=== PATIENT | female | born 1960 | race Caucasian/White ===

== ENCOUNTER → 2020-10-23 15:14 | Outpatient (CLI) | payer SELFPAY ==
[2020-10-23] MEDS: COVID-19 VACC #1, MRNA(MOD) 100 MCG/0.5 ML VIAL IM (15:22)
== END ==
PROVIDERS: Visit Provider Internal Medicine
DX: Z23 Encounter for immunization (principal)
CPT/HCPCS: 0011A; 91301

== ENCOUNTER → 2020-11-20 15:36 | Outpatient (CLI) | payer SELFPAY ==
[2020-11-20] MEDS: COVID-19 VACC #2, MRNA(MOD) 100 MCG/0.5 ML VIAL IM (15:42)
== END ==
PROVIDERS: Visit Provider Internal Medicine
DX: Z23 Encounter for immunization (principal)
CPT/HCPCS: 0012A; 91301

== ENCOUNTER → 2022-02-09 08:09 | Outpatient (CLI) | payer BC, SELFPAY ==
--- NOTE | 2022-02-09 08:11 | DI.RAD.S_ITS ---
PROCEDURE: XR KNEE RT 3V INDICATIONS: right knee swelling pain since injury 10 weeks ago TECHNIQUE: 3 views of the knee were acquired. COMPARISON: [facility], , KNEE 3V LEFT, 04/24/2015, 14:49. [facility], , KNEE 3V RIGHT, 04/24/2015, 14:40. FINDINGS: Bones: No fractures or dislocations. Small patellar osteophyte. Mild joint space narrowing suspected. No suspicious bony lesions. Soft tissues: Small joint effusion. No suspicious soft tissue calcifications. IMPRESSION: Small joint effusion. Laps-ko-ohshezys DJD. Dictated by: Bryce Julien M.D. on 02/09/2022 at 9:08 Approved by: Bryce Julien M.D. on 02/09/2022 at 9:10
== END ==
PROVIDERS: Referring Provider Nurse Practitioner Critical Care Medicine; Visit Provider Nurse Practitioner Critical Care Medicine
DX: S89.91XA Unspecified injury of right lower leg, initial encounter (principal); M17.11 Unilateral primary osteoarthritis, right knee; M25.461 Effusion, right knee; X58.XXXA Exposure to other specified factors, initial encounter
CPT/HCPCS: 73562

== ENCOUNTER → 2022-04-23 17:15 | Outpatient (CLI) | payer SELFPAY ==
--- NOTE | 2022-04-23 17:24 | DI.MRI.S_ITS ---
PROCEDURE: MR KNEE RT WO CON INDICATIONS: Unilateral primary osteoarthritis, right knee TECHNIQUE: Noncontrast sagittal PD fast spin echo and T2 fast spin echo with fat saturation, sagittal 3-D FLASH with fat saturation; coronal T1 spin echo and PD fast spin echo with fat saturation, and axial PD fast spin echo with fat saturation through the knee. COMPARISON: None. FINDINGS: Image quality: Excellent. Menisci: Subtle oblique tear involving posterior horn of medial meniscus is seen extending to inferior articulating surface best seen on series 13, image 20. Lateral meniscus is intact. The meniscal root ligaments appear intact. Cruciate ligaments: The anterior and posterior cruciate ligaments appear intact. Medial structures: Low-grade medial collateral ligament sprain is seen. The posterior oblique ligament, semimembranosus tendon insertions, oblique popliteal ligament, and meniscocapsular junction appear intact. Visualized portions of the pes anserinus tendons appear normal. No abnormal bursal fluid. Lateral structures: The lateral collateral ligament, long and short heads of the biceps femoris tendon appear intact. The popliteus tendon appears normal; the popliteofibular ligament appears intact. The posterosuperior and anteroinferior popliteomeniscal fascicles appear intact. The arcuate and fabellofibular ligaments appear intact, on either side of the lateral inferior geniculate artery. Iliotibial band appears normal. Anterior structures: Mild soft tissue edema and small amount of fluid along anterior and medial aspect of patella and patella tendon is seen. The quadriceps and patellar tendons appear intact. Thickened lateral patellofemoral ligament is seen near its patellar insertion with adjacent is soft tissue edema. Patellar alignment is normal. No femoral trochlear dysplasia or ventral trochlear prominence. No edema in the infrapatellar fat pad. Bones and cartilage: No bone marrow contusions or fractures. 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 Joint space: There is small knee joint fluid. No Newell's cyst. Normal appearing synovial plicae are incidentally noted. IMPRESSION: 1. Subtle oblique tear involving posterior horn of medial meniscus extending to inferior articulating surface. Lateral meniscus is intact. 2. Low-grade MCL sprain. Anterior and posterior cruciate ligaments are intact. 3. Moderate grade sprain/partial-thickness tear involving lateral patellofemoral ligament near patella insertion. Quadriceps tendon and patellar tendon are intact. 4. Plnx-fu-[id number] tricompartmental osteoarthritis and chondromalacia most notably in medial femoral tibial compartment. Small joint effusion. 5. Nonspecific mild subcutaneous soft tissue edema and small amount of fluid along anterior aspect of patella and patella tendon as above. Dictated by: Horacio Rojas M.D. on 04/26/2022 at 8:14 Approved by: Horacio Rojas M.D. on 04/26/2022 at 8:24
== END ==
PROVIDERS: Referring Provider Physical Medicine & Rehabilitation Pain Medicine; Visit Provider Physical Medicine & Rehabilitation Pain Medicine
DX: M17.11 Unilateral primary osteoarthritis, right knee (principal); S83.241A Other tear of medial meniscus, current injury, right knee, initial encounter; S83.411A Sprain of medial collateral ligament of right knee, initial encounter; M94.261 Chondromalacia, right knee; M25.461 Effusion, right knee
CPT/HCPCS: 73721

== ENCOUNTER → 2022-11-12 10:33 | Outpatient (CLI) | payer BC, SELFPAY ==
[2022-11-12 11:37] LABS: Add Manual Diff / Slide Review NO; Basophils Absolute Auto 0 /uL (0-100); Basophils Percent Auto 0.7 % (0-2); Eosinophils Absolute Auto 0 /uL (0-450); Eosinophils Percent Auto 0.8 % (2-4); Hematocrit 41.5 % (36-46); Hemoglobin 13.9 g/dL (12.0-16.0); Lymphocytes Absolute Auto 1300 /uL (1100-4500); Lymphocytes Percent Auto 25.4 % (25-40); Mean Corpuscular HGB Conc 33.6 % (30-36); Mean Corpuscular Hemoglobin 28.5 PG (26-34); Mean Corpuscular Volume 84.8 fL (80-100); Monocytes Absolute Auto 500 /uL (0-900); Monocytes Percent Auto 9.7 % (3-14); Neutrophils Absolute Auto 3200 /uL (1500-7000); Neutrophils Percent Auto 63.4 % (50-75); Platelet Count 209 X10^3/uL (150-400); Red Cell Distribution Width 15.4 % (11.6-14.8)
[2022-11-12 11:43] LABS: Alanine Aminotransferase 26 IU/L (<35); Albumin 4.5 g/dL (3.5-5.0); Albumin Globulin Ratio 1.5 (1.0-2.8); Alkaline Phosphatase 66 U/L (38-126); Aspartate Aminotransferase 26 IU/L (14-36); BUN Creatinine Ratio 38.1 (6-22); Bilirubin Total 0.4 mg/dL (0.2-1.3); Blood Urea Nitrogen 24 mg/dL (7-17); Carbon Dioxide 26 mmol/L (22-32); Chloride 105 mmol/L (98-107); Cholesterol 229 mg/dL (140-199); Estimated Glomerular Filt Rate > 60 mL/min (>60); Glucose 109 mg/dL (80-110); HDL Cholesterol 74 mg/dL (40-60); HEMOLYSIS < 15 (0-50); LDL Cholesterol Calculated 141 mg/dL (<100); Potassium 4.3 mmol/L (3.4-5.1); Sodium 138 mmol/L (137-145); Total Protein 7.5 g/dL (6.3-8.2); Triglycerides 71 mg/dL (35-150)
[2022-11-12 12:31] LABS: TSH w/ Reflex to FT4 1.51 uIU/mL (0.47-4.68)
== END ==
PROVIDERS: PCP Family Medicine; Referring Provider Family Medicine; Visit Provider Family Medicine
DX: I10 Essential (primary) hypertension (principal); Z00.00 Encounter for general adult medical examination without abnormal findings
CPT/HCPCS: 36415; 80053; 80061; 84443; 85025

== ENCOUNTER 2022-11-26 09:45 | Outpatient (RCR) | payer BC, SELFPAY ==
--- NOTE | 2022-03-11 17:56 | PT.OIE ---
Current Diagnoses Stiffness of right knee, not elsewhere classified (03/11/22) Unspecified injury of right lower leg, initial encounter (03/11/22) Unspecified injury of right lower leg, subsequent encounter (03/11/22) Visit Care Team Role Provider Type MICHAEL Valladares Attending Provider Advanced Windrower Operator Referring Provider Specialty: EM Address: [address] [place] [address], [phone] Email: [email or web address] [facility] Initial Evaluation PT-OP-A Visit Information Start: 03/11/22 13:49 Freq: Status: Active Protocol: Document 03/11/22 09:45 DCW (Rec: 03/11/22 13:50 DCW [id number]) Out-Patient Physical Therapy Visit Information Visit Information Visit Type Initial Evaluation Visit Start Time 09:45 Visit Stop Time 10:25 Total Visit Minutes 40 Visit Number 1 Number of HEALTH AND SAFETY TECH Visits 0 Evaluation Information Evaluation Date 03/11/22 PT-OP-B Current Condition Start: 03/11/22 13:49 Freq: Status: Active Protocol: Document 03/11/22 09:45 DCW (Rec: 03/11/22 14:06 DCW [id number]) Current Condition History of Current Condition Onset Date 11/28/21 Current Complaints Right knee swelling, stiffness History of Current Condition Pt is a 61 year old female presenting to skilled therapy with a three month history of knee swelling and stiffness. Pt reports she tripped and fell on , and as she was holding things at the time, she was unable to catch herself, and fell onto her right knee with her full body weight. Pt reports that she had pretty significant pain for a few weeks, but it is now feeling a lot better. Pt reports that despite it feeling better, it is still swollen and so tight that she struggles to bend it. Pt went to the walk-in clinic one month ago, received x-rays, which were negative, and got referrals to PT and ortho. Admits she has not gone to ortho because they said they were surgeons, and I didn't think it was bad enough that I needed surgery, so I just didn't think I needed to go. Pt presents with a significant R limp due to walking with her knee in full extension at all times. Prior Treatments and Tests R knee x-ray: IMPRESSION: Small joint effusion. 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 Per: Bryce Julien M.D. on 02/09/2022 PT-OP-C Subjective Start: 03/11/22 13:49 Freq: Status: Active Protocol: Document 03/11/22 09:45 DCW (Rec: 03/11/22 14:06 DCW [id number]) OP-PT Subjective Patient Comments Patient Comments There might be an occasional pain every now and then, but really it just feels tight and numbness. Just a lot of tightness. OP-PT Pain Assessment Pain Assessment Grid Paper Pain Assessment Grid Completed Yes Location Right Knee Intensity 1 Scale Used Numeric (0 - 10) Description Tightness PT-OP-F Manual Assessment Start: 03/11/22 13:49 Freq: Status: Active Protocol: Document 03/11/22 09:45 DCW (Rec: 03/11/22 17:39 DCW [id number]) Manual Assessments Soft Tissue Assessment Soft Tissue Mobility Assessment Significant edema/effusion around right knee, however no notable tenderness or tone along soft tissue Joint Mobility Assessment Joint Mobility Assessment Minimal mobility of patella secondary to subpatellar edema . Severely limited right knee flexion both passively and actively PT-OP-G Mobility & Gait Start: 03/11/22 17:35 Freq: Status: Active Protocol: Document 03/11/22 09:45 DCW (Rec: 03/11/22 17:43 DCW [id number]) OP Gait Assessment Gait Gait Assistance Required: Independent Assistive Devices Assistive Device None Gait Deviations General Gait Pattern Antalgic Factors Limiting Gait Function Factors Limiting Gait Function Limited Range of Motion Comments Gait Comments Pt ambulates with her right knee in full extension, notes that it doesn't hurt, it just doesn't feel like it wants to bend. PT-OP-J Posture/Palpation/Skin Start: 03/11/22 13:49 Freq: Status: Active Protocol: Document 03/11/22 09:45 DCW (Rec: 03/11/22 17:39 DCW [id number]) Skin Assessment Circumference Measurement 10 cm superior to patella Location R leg Measurement (Centimeters) 62.4 Comments L = 57.9 cm Knee joint line Location R joint line Measurement (Centimeters) 47.9 Comments L = 44.7 cm Mid Calf Location R Mid Calf Measurement (Centimeters) 46 Comments L = 43 cm PT-OP-K Range of Motion Start: 03/11/22 13:49 Freq: Status: Active Protocol: Document 03/11/22 09:45 DCW (Rec: 03/11/22 17:39 DCW [id number]) Knee Goniometric Range of Motion Knee Right Knee ROM WFL No Patient Position Supine Flexion Active (degrees) 55 Flexion Passive (degrees) 70 Extension Active (degrees) 2 Extension Passive (degrees) 2 Knee ROM Limitations Knee ROM Limitations Swelling PT-OP-L Special Tests Start: 03/11/22 13:49 Freq: Status: Active Protocol: Document 03/11/22 09:45 DCW (Rec: 03/11/22 17:39 DCW [id number]) Special Tests Knee Special Tests Varus- 0 Degrees Test Results Negative Valgus- 0 Degrees Test Results Negative Posterior Draw Test Results Negative Patella Tap Test Results Positive R Elle Test Test Results Negative Gerri's Test Results Negative Anterior Draw Test Results Negative PT-OP-M Strength Start: 03/11/22 13:49 Freq: Status: Active Protocol: Document 03/11/22 09:45 DCW (Rec: 03/11/22 17:39 DCW [id number]) Knee Strength Knee Manual Muscle Testing Right Comments Pt able to hold position against full force with no pain, but unable to move through full flexion PT-OP-T Assessment and Plan Start: 03/11/22 13:49 Freq: Status: Active Protocol: Document 03/11/22 09:45 DCW (Rec: 03/11/22 17:56 DCW [id number]) Physical Therapy Assessment Rehab Potential Rehabilitation Potential Fair Evaluation Complexity Number of Personal Factors/Comorbidities 1-2 Number of Body Systems Impaired 1-2 Clinical Presentation at Evaluation Stable Impairments Impairments Edema,Functional Activities, Functional Mobility,Gait,ROM Goals Two Impairment Pt severely limited R knee flexion limits ambulation ability Senior Care Goal (LTG) Pt to improve right knee flexion AROM by at least 40? from 55? to 95? in order to normalize gait pattern and reduce risk for hip and back pain dur to gait disturbance. LTG Duration 05/11/22 One Impairment Pt does not have an appropriate home exercise program Short Term Goal (STG) Pt to be independent and compliant with an appropriate HEP STG Duration 04/10/22 Assessment Summary Assessment Pt presents to skilled therapy with a very unusual presentation that is incredibly difficult to DDx. Pt's seemingly only complaint is that her knee does not bend three months after a fall directly onto her knee. Pt reports no pain, joint does not appear to have any instability, unable to provoke symptoms with any compression /meniscus testing, just AROM limited to 2?-55?. Does not even note pain at end-range, just states that it won't go any farther. Significant swelling both at the joint and into her calf and thigh. Fairly firm, non-pitting edema , which is likely limiting some of her ROM. Additionally, although she does not appear to have joint laxity, may just have so much effusion that it is not enabling her joint to move. Unclear without further testing what best course of action would be for treatment. Would strongly recommend advanced imaging to rule in/ out potential ligamentous or meniscal damage prior to further attempts at rehab at this time. Pt may benefit from STM, joint mobilizations, stretching, and gait training, but should probably undergo other diagnostics prior to start of any forceful stretching. Physical Therapy Plan Frequency and Duration Frequency of Treatment 1-2x/week Duration of Treatment Two months Plan of Care Start Date 03/11/22 Plan of Care End Date 05/11/22 Therapeutic Interventions Therapeutic Interventions Aquatic Therapy,Gait Training, Home Exercise Program,Joint Mobilizations,Manual Therapy, Patient/Caregiver Education, Self-Care/Home Management,Soft Tissue Mobilization,Taping, Therapeutic Activities, Therapeutic Exercises Modalities Cold Pack/Ice Massage,Electric Stimulation,Hot Packs, Ultrasound Other Referrals/Consults Referrals/Consults Recommended Would strongly recommend advanced imaging prior to return to therapy Next Visit Focus/Plan Next Note Type Treatment Note Next Visit Plan PROM, stretching, gait training
--- NOTE | 2022-03-11 17:57 | PT.OPPOC ---
Physical, Occupational & Speech Therapy At [facility] Current Diagnoses Stiffness of right knee, not elsewhere classified (03/11/22) Unspecified injury of right lower leg, initial encounter (03/11/22) Unspecified injury of right lower leg, subsequent encounter (03/11/22) Visit Care Team Role Provider Type MICHAEL Valladares Attending Provider Advanced Flat Surfacer Referring Provider Specialty: Address: [address] [place] [address], [phone] Email: [email or web address] Plan Of Care PT-OP-T Assessment and Plan Start: 03/11/22 13:49 Freq: Status: Active Protocol: Document 03/11/22 09:45 DCW (Rec: 03/11/22 17:56 DCW [id number]) Physical Therapy Assessment Rehab Potential Rehabilitation Potential Fair Evaluation Complexity Number of Personal Factors/Comorbidities 1-2 Number of Body Systems Impaired 1-2 Clinical Presentation at Evaluation Stable Impairments Impairments Edema,Functional Activities, Functional Mobility,Gait,ROM Goals Two Impairment Pt severely limited R knee flexion limits ambulation ability Correction Goal (LTG) Pt to improve right knee flexion AROM by at least 40? from 55? to 95? in order to normalize gait pattern and reduce risk for hip and back pain dur to gait disturbance. LTG Duration 05/11/22 One Impairment Pt does not have an appropriate home exercise program Short Term Goal (STG) Pt to be independent and compliant with an appropriate HEP STG Duration 04/10/22 Assessment Summary Assessment Pt presents to skilled therapy with a very unusual presentation that is incredibly difficult to DDx. Pt's seemingly only complaint is that her knee does not bend three months after a fall directly onto her knee. Pt reports no pain, joint does not appear to have any instability, unable to provoke symptoms with any compression /meniscus testing, just AROM limited to 2?-55?. Does not even note pain at end-range, just states that it won't go any farther. Significant swelling both at the joint and into her calf and thigh. Fairly firm, non-pitting edema , which is likely limiting some of her ROM. Additionally, although she does not appear to have joint laxity, may just have so much effusion that it is not enabling her joint to move. Unclear without further testing what best course of action would be for treatment. Would strongly recommend advanced imaging to rule in/ out potential ligamentous or meniscal damage prior to further attempts at rehab at this time. Pt may benefit from STM, joint mobilizations, stretching, and gait training, but should probably undergo other diagnostics prior to start of any forceful stretching. Physical Therapy Plan Frequency and Duration Frequency of Treatment 1-2x/week Duration of Treatment Two months Plan of Care Start Date 03/11/22 Plan of Care End Date 05/11/22 Therapeutic Interventions Therapeutic Interventions Aquatic Therapy,Gait Training, Home Exercise Program,Joint Mobilizations,Manual Therapy, Patient/Caregiver Education, Self-Care/Home Management,Soft Tissue Mobilization,Taping, Therapeutic Activities, Therapeutic Exercises Modalities Cold Pack/Ice Massage,Electric Stimulation,Hot Packs, Ultrasound Other Referrals/Consults Referrals/Consults Recommended Would strongly recommend advanced imaging prior to return to therapy Next Visit Focus/Plan Next Note Type Treatment Note Next Visit Plan PROM, stretching, gait training Plan of Care Dates Plan of Care Start Date 03/11/22 Plan of Care End Date 05/11/22 Electronically Signed by: Km Clark, PT 03/11/22 8548 If you are in agreement with this Plan of Care, please return a signed and dated copy. I have reviewed this Plan of Care and certify that the skilled therapy services above are required to meet the patient?s needs. Physician Signature Date Printed Name and Credentials Clinical Instructor Signature Printed Name and Credentials
--- NOTE | 2022-05-05 11:14 | PT.OTN ---
Current Diagnoses Stiffness of right knee, not elsewhere classified (05/05/22) Unspecified injury of right lower leg, initial encounter (05/05/22) Unspecified injury of right lower leg, subsequent encounter (05/05/22) Physical Therapy Treatment Note PT-OP-A Visit Information Start: 03/11/22 13:49 Freq: Status: Active Protocol: Document 05/05/22 09:45 DCW (Rec: 05/05/22 10:47 DCW [id number]) Out-Patient Physical Therapy Visit Information Precautions Precautions IMPRESSION: 1. Subtle oblique tear involving posterior horn of medial meniscus extending to inferior articulating surface. Lateral meniscus is intact. 2. Low-grade MCL sprain. Anterior and posterior cruciate ligaments are intact. 3. Moderate grade sprain/partial-thickness tear involving lateral patellofemoral ligament near patella insertion. Quadriceps tendon and patellar tendon are intact . 4. Sczz-tg-[id number] tricompartmental osteoarthritis and chondromalacia most notably in medial femoral tibial compartment. Small joint effusion. 5. Nonspecific mild subcutaneous soft tissue edema and small amount of fluid along anterior aspect of patella and patella tendon as above. Per Horacio Rojas M.D. on 04/26/2022 PT-OP-B Current Condition Start: 03/11/22 13:49 Freq: Status: Active Protocol: Document 03/11/22 09:45 DCW (Rec: 03/11/22 14:06 DCW [id number]) Current Condition History of Current Condition Onset Date 11/28/21 Current Complaints Right knee swelling, stiffness History of Current Condition Pt is a 61 year old female presenting to skilled therapy with a three month history of knee swelling and stiffness. Pt reports she tripped and fell on , and as she was holding things at the time, she was unable to catch herself, and fell onto her right knee with her full body weight. Pt reports that she had pretty significant pain for a few weeks, but it is now feeling a lot better. Pt reports that despite it feeling better, it is still swollen and so tight that she struggles to bend it. Pt went to the walk-in clinic one month ago, received x-rays, which were negative, and got referrals to PT and ortho. Admits she has not gone to ortho because they said they were surgeons, and I didn't think it was bad enough that I needed surgery, so I just didn't think I needed to go. Pt presents with a significant R limp due to walking with her knee in full extension at all times. Prior Treatments and Tests R knee x-ray: IMPRESSION: Small joint effusion. 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 Per: Bryce Julien M.D. on 02/09/2022 PT-OP-C Subjective Start: 03/11/22 13:49 Freq: Status: Active Protocol: Document 05/05/22 09:45 DCW (Rec: 05/05/22 10:47 DCW [id number]) OP-PT Subjective Patient Comments Patient Comments Pt reports there has been no change since initial evaluation. Did receive an MRI , see above. PT-OP-F Manual Assessment Start: 03/11/22 13:49 Freq: Status: Active Protocol: Document 03/11/22 09:45 DCW (Rec: 03/11/22 17:39 DCW [id number]) Manual Assessments Soft Tissue Assessment Soft Tissue Mobility Assessment Significant edema/effusion around right knee, however no notable tenderness or tone along soft tissue Joint Mobility Assessment Joint Mobility Assessment Minimal mobility of patella secondary to subpatellar edema . Severely limited right knee flexion both passively and actively PT-OP-G Mobility & Gait Start: 03/11/22 17:35 Freq: Status: Active Protocol: Document 03/11/22 09:45 DCW (Rec: 03/11/22 17:43 DCW [id number]) OP Gait Assessment Gait Gait Assistance Required: Independent Assistive Devices Assistive Device None Gait Deviations General Gait Pattern Antalgic Factors Limiting Gait Function Factors Limiting Gait Function Limited Range of Motion Comments Gait Comments Pt ambulates with her right knee in full extension, notes that it doesn't hurt, it just doesn't feel like it wants to bend. PT-OP-J Posture/Palpation/Skin Start: 03/11/22 13:49 Freq: Status: Active Protocol: Document 03/11/22 09:45 DCW (Rec: 03/11/22 17:39 DCW [id number]) Skin Assessment Circumference Measurement 10 cm superior to patella Location R leg Measurement (Centimeters) 62.4 Comments L = 57.9 cm Knee joint line Location R joint line Measurement (Centimeters) 47.9 Comments L = 44.7 cm Mid Calf Location R Mid Calf Measurement (Centimeters) 46 Comments L = 43 cm PT-OP-K Range of Motion Start: 03/11/22 13:49 Freq: Status: Active Protocol: Document 03/11/22 09:45 DCW (Rec: 03/11/22 17:39 DCW [id number]) Knee Goniometric Range of Motion Knee Right Knee ROM WFL No Patient Position Supine Flexion Active (degrees) 55 Flexion Passive (degrees) 70 Extension Active (degrees) 2 Extension Passive (degrees) 2 Knee ROM Limitations Knee ROM Limitations Swelling PT-OP-L Special Tests Start: 03/11/22 13:49 Freq: Status: Active Protocol: Document 03/11/22 09:45 DCW (Rec: 03/11/22 17:39 DCW [id number]) Special Tests Knee Special Tests Varus- 0 Degrees Test Results Negative Valgus- 0 Degrees Test Results Negative Posterior Draw Test Results Negative Patella Tap Test Results Positive R Elle Test Test Results Negative Gerri's Test Results Negative Anterior Draw Test Results Negative PT-OP-M Strength Start: 03/11/22 13:49 Freq: Status: Active Protocol: Document 03/11/22 09:45 DCW (Rec: 03/11/22 17:39 DCW [id number]) Knee Strength Knee Manual Muscle Testing Right Comments Pt able to hold position against full force with no pain, but unable to move through full flexion PT-OP-Q Treatments Start: 03/11/22 13:49 Freq: Status: Active Protocol: Document 05/05/22 09:45 DCW (Rec: 05/05/22 10:47 DCW [id number]) Therapeutic Exercises Supine Exercises Leg hang Supine Exercise Name Psoas/quad stretch off side of table Side right Heel slides Supine Exercise Name HS /c strap Side right Prone Exercises Flexion stretch Prone Exercise Name Prone knee flexion stretch /c strap Side right Manual Therapy Treatment Joint Mobilizations Tibiofemoral Joint R knee Direction P->A Grade IV Body Position Sitting Manual Traction LE Details R LE Traction Body Position Supine PT-OP-T Assessment and Plan Start: 03/11/22 13:49 Freq: Status: Active Protocol: Document 05/05/22 09:45 DCW (Rec: 05/05/22 10:47 DCW [id number]) Physical Therapy Assessment Impairments Impairments Edema,Functional Activities, Functional Mobility,Gait,ROM Goals Two Impairment Pt severely limited R knee flexion limits ambulation ability Chcf Goal (LTG) Pt to improve right knee flexion AROM by at least 40? from 55? to 95? in order to normalize gait pattern and reduce risk for hip and back pain dur to gait disturbance. LTG Duration 05/11/22 One Impairment Pt does not have an appropriate home exercise program Short Term Goal (STG) Pt to be independent and compliant with an appropriate HEP STG Duration 04/10/22 Assessment Summary Assessment Main focus today on manual knee flexion, still limited to ~55 active and 70 passive, no real change since eval, although pt has not been back to PT since that time. Therapist recommended pt follow-up with Ortho as soon as she is able. Continue with active and passive ROM, trial recumbent bike for ROM if tolerated next visit. Physical Therapy Plan Frequency and Duration Frequency of Treatment 1-2x/week Plan of Care Start Date 05/05/22 Plan of Care End Date 06/30/22 Therapeutic Interventions Therapeutic Interventions Aquatic Therapy,Gait Training, Home Exercise Program,Joint Mobilizations,Manual Therapy, Patient/Caregiver Education, Self-Care/Home Management,Soft Tissue Mobilization,Taping, Therapeutic Activities, Therapeutic Exercises Modalities Cold Pack/Ice Massage,Electric Stimulation,Hot Packs, Ultrasound Next Visit Focus/Plan Next Note Type Treatment Note Next Visit Plan PROM, stretching, gait training
--- NOTE | 2022-05-05 11:15 | PT.OPPOC ---
Physical, Occupational & Speech Therapy At [facility] Current Diagnoses Stiffness of right knee, not elsewhere classified (05/05/22) Unspecified injury of right lower leg, initial encounter (05/05/22) Unspecified injury of right lower leg, subsequent encounter (05/05/22) Visit Care Team Role Provider Type Doctor Alma, Primary Care Provider Non-Staff Specialty: Medical Address: Phone: Fax: Email: MICHAEL Valladares Attending Provider Advanced Surgical Specialist Referring Provider Specialty: EM Address: [address] [place] [address], [id number] Email: [email or web address] Plan Of Care PT-OP-T Assessment and Plan Start: 03/11/22 13:49 Freq: Status: Active Protocol: Document 05/05/22 09:45 DCW (Rec: 05/05/22 10:47 DCW [id number]) Physical Therapy Assessment Impairments Impairments Edema,Functional Activities, Functional Mobility,Gait,ROM Goals Two Impairment Pt severely limited R knee flexion limits ambulation ability Animal Husbandry Teacher Goal (LTG) Pt to improve right knee flexion AROM by at least 40? from 55? to 95? in order to normalize gait pattern and reduce risk for hip and back pain dur to gait disturbance. LTG Duration 05/11/22 One Impairment Pt does not have an appropriate home exercise program Short Term Goal (STG) Pt to be independent and compliant with an appropriate HEP STG Duration 04/10/22 Assessment Summary Assessment Main focus today on manual knee flexion, still limited to ~55 active and 70 passive, no real change since eval, although pt has not been back to PT since that time. Therapist recommended pt follow-up with Ortho as soon as she is able. Continue with active and passive ROM, trial recumbent bike for ROM if tolerated next visit. Physical Therapy Plan Frequency and Duration Frequency of Treatment 1-2x/week Plan of Care Start Date 05/05/22 Plan of Care End Date 06/30/22 Therapeutic Interventions Therapeutic Interventions Aquatic Therapy,Gait Training, Home Exercise Program,Joint Mobilizations,Manual Therapy, Patient/Caregiver Education, Self-Care/Home Management,Soft Tissue Mobilization,Taping, Therapeutic Activities, Therapeutic Exercises Modalities Cold Pack/Ice Massage,Electric Stimulation,Hot Packs, Ultrasound Next Visit Focus/Plan Next Note Type Treatment Note Next Visit Plan PROM, stretching, gait training Plan of Care Dates Plan of Care Start Date 05/05/22 Plan of Care End Date 06/30/22 Electronically Signed by: Km Clark, PT 05/05/22 7735 If you are in agreement with this Plan of Care, please return a signed and dated copy. I have reviewed this Plan of Care and certify that the skilled therapy services above are required to meet the patient?s needs. Physician Signature Date Printed Name and Credentials Clinical Instructor Signature Printed Name and Credentials
--- NOTE | 2022-05-11 13:00 | PT.OTN ---
Current Diagnoses Stiffness of right knee, not elsewhere classified (05/11/22) Unspecified injury of right lower leg, initial encounter (05/11/22) Unspecified injury of right lower leg, subsequent encounter (05/11/22) Physical Therapy Treatment Note PT-OP-A Visit Information Start: 03/11/22 13:49 Freq: Status: Active Protocol: Document 05/11/22 12:18 SP (Rec: 05/11/22 13:47 SP [id number]) Out-Patient Physical Therapy Visit Information Visit Information Visit Type Treatment Note Visit Note TITUS Redd observed tx with permission of pt. Visit Start Time 12:18 Visit Stop Time 13:00 Total Visit Minutes 42 Visit Number 3 Number of AIRCRAFT INSTRUMENT REPAIRER Visits 1 Precautions Precautions IMPRESSION: 1. Subtle oblique tear involving posterior horn of medial meniscus extending to inferior articulating surface. Lateral meniscus is intact. 2. Low-grade MCL sprain. Anterior and posterior cruciate ligaments are intact. 3. Moderate grade sprain/partial-thickness tear involving lateral patellofemoral ligament near patella insertion. Quadriceps tendon and patellar tendon are intact . 4. Seuz-bn-sogavzaz tricompartmental osteoarthritis and chondromalacia most notably in medial femoral tibial compartment. Small joint effusion. 5. Nonspecific mild subcutaneous soft tissue edema and small amount of fluid along anterior aspect of patella and patella tendon as above. Per Horacio Rojas M.D. on 04/26/2022 PT-OP-B Current Condition Start: 03/11/22 13:49 Freq: Status: Active Protocol: Document 03/11/22 09:45 DCW (Rec: 03/11/22 14:06 DCW [id number]) Current Condition History of Current Condition Onset Date 11/28/21 Current Complaints Right knee swelling, stiffness History of Current Condition Pt is a 61 year old female presenting to skilled therapy with a three month history of knee swelling and stiffness. Pt reports she tripped and fell on , and as she was holding things at the time, she was unable to catch herself, and fell onto her right knee with her full body weight. Pt reports that she had pretty significant pain for a few weeks, but it is now feeling a lot better. Pt reports that despite it feeling better, it is still swollen and so tight that she struggles to bend it. Pt went to the walk-in clinic one month ago, received x-rays, which were negative, and got referrals to PT and ortho. Admits she has not gone to ortho because they said they were surgeons, and I didn't think it was bad enough that I needed surgery, so I just didn't think I needed to go. Pt presents with a significant R limp due to walking with her knee in full extension at all times. Prior Treatments and Tests R knee x-ray: IMPRESSION: Small joint effusion. 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 Per: Bryce Julien M.D. on 02/09/2022 PT-OP-C Subjective Start: 03/11/22 13:49 Freq: Status: Active Protocol: Document 05/11/22 12:18 SP (Rec: 05/11/22 13:47 SP [id number]) OP-PT Subjective Patient Comments Patient Comments Pt reported L knee has swelling as well after tx thinks some of the activities bending caused it to swell. She reports wants to be cautious of over stressng L knee is the best for her stability. Pt states see orthopedic again next week for further discussion plan going forward. PT-OP-F Manual Assessment Start: 03/11/22 13:49 Freq: Status: Active Protocol: Document 03/11/22 09:45 DCW (Rec: 03/11/22 17:39 DCW [id number]) Manual Assessments Soft Tissue Assessment Soft Tissue Mobility Assessment Significant edema/effusion around right knee, however no notable tenderness or tone along soft tissue Joint Mobility Assessment Joint Mobility Assessment Minimal mobility of patella secondary to subpatellar edema . Severely limited right knee flexion both passively and actively PT-OP-G Mobility & Gait Start: 03/11/22 17:35 Freq: Status: Active Protocol: Document 03/11/22 09:45 DCW (Rec: 03/11/22 17:43 DCW [id number]) OP Gait Assessment Gait Gait Assistance Required: Independent Assistive Devices Assistive Device None Gait Deviations General Gait Pattern Antalgic Factors Limiting Gait Function Factors Limiting Gait Function Limited Range of Motion Comments Gait Comments Pt ambulates with her right knee in full extension, notes that it doesn't hurt, it just doesn't feel like it wants to bend. PT-OP-J Posture/Palpation/Skin Start: 03/11/22 13:49 Freq: Status: Active Protocol: Document 05/11/22 12:18 SP (Rec: 05/11/22 13:47 SP [id number]) Skin Assessment Circumference Measurement 10 cm superior to patella Location R leg Measurement (Centimeters) 69 Knee joint line Location R joint line Measurement (Centimeters) 52.5 Mid Calf Location R mid calf (9cm inferior patella) Measurement (Centimeters) 49 PT-OP-K Range of Motion Start: 03/11/22 13:49 Freq: Status: Active Protocol: Document 03/11/22 09:45 DCW (Rec: 03/11/22 17:39 DCW [id number]) Knee Goniometric Range of Motion Knee Right Knee ROM WFL No Patient Position Supine Flexion Active (degrees) 55 Flexion Passive (degrees) 70 Extension Active (degrees) 2 Extension Passive (degrees) 2 Knee ROM Limitations Knee ROM Limitations Swelling PT-OP-L Special Tests Start: 03/11/22 13:49 Freq: Status: Active Protocol: Document 03/11/22 09:45 DCW (Rec: 03/11/22 17:39 DCW [id number]) Special Tests Knee Special Tests Varus- 0 Degrees Test Results Negative Valgus- 0 Degrees Test Results Negative Posterior Draw Test Results Negative Patella Tap Test Results Positive R Elle Test Test Results Negative Gerri's Test Results Negative Anterior Draw Test Results Negative PT-OP-M Strength Start: 03/11/22 13:49 Freq: Status: Active Protocol: Document 03/11/22 09:45 DCW (Rec: 03/11/22 17:39 DCW [id number]) Knee Strength Knee Manual Muscle Testing Right Comments Pt able to hold position against full force with no pain, but unable to move through full flexion PT-OP-Q Treatments Start: 03/11/22 13:49 Freq: Status: Active Protocol: Document 05/11/22 12:18 SP (Rec: 05/11/22 13:47 SP [id number]) Therapeutic Exercises Supine Exercises Leg hang Supine Exercise Name Psoas/quad stretch off side of table Side right Reps/Minutes 2 min Heel slides Supine Exercise Name HS /c strap Side right Reps/Minutes x8 reps Comments cued ankle neutral Sitting Exercises R knee flexion Sitting Exercise Name AROM, stationary foot scoot into flexion Side right Resistance AROM, AAROM Reps/Minutes x5 reps each Comments good Gait Training Gait Activity gait phases/WB Description gait phase quality: fwd, side stepping Device Used 0 Level of Assistance SBA Surface firm carpet Distance/Duration 20 ft x6 reps Treatment Focus R knee and hip flexion, heel toe/DF, core fac, midline posture Comments improvement decrease SB L and hip hike for RLE clearance during gait post cues for level pelvis/shld, core fac, R knee/ hip flexion/ DF and heel toe while use mirror for self awareness alignment. Pt reported R knee less stiff and feels more confident with gait quality awareness. Manual Therapy Treatment Soft Tissue Mobilization quad Body Location R Mobilization Type Instrument Assisted,Rolling Intensity/Depth Superficial Body Position Supine Comments gentle manual and instruction self use rolling pin over quad with muscle direction and cross seesaw- no pain, good response less muscle tension. Taping K tape R knee Body Location R knee Treatment Focus Edema managment Type of Tape Kinesio Tape Skin Inspection normal color, swelling midcalf /thigh Comments Chisholm taping R lateral knee jt slight tension fanning mid rectus femoris laterally to Vastus Lateralis- no adverse affects during tx. Self-Care/Home Management Treatment Education Patient Education Body Mechanics,Joint Protection,Pain Management Other Education Time spent use CP for swelling , understood use Ktaping and adverse afffects: tingling/ redness/itchy to remove K taping applied for swelling mgt anterior/lateral R distal quad. PT-OP-T Assessment and Plan Start: 03/11/22 13:49 Freq: Status: Active Protocol: Document 05/11/22 12:18 SP (Rec: 05/11/22 13:47 SP [id number]) Physical Therapy Assessment Goals Two Impairment Pt severely limited R knee flexion limits ambulation ability Office Coordinator Receptionist Goal (LTG) Pt to improve right knee flexion AROM by at least 40? from 55? to 95? in order to normalize gait pattern and reduce risk for hip and back pain dur to gait disturbance. LTG Duration 05/11/22 One Impairment Pt does not have an appropriate home exercise program Short Term Goal (STG) Pt to be independent and compliant with an appropriate HEP STG Duration 04/10/22 Progress Towards Goals Progress Comments Pt increase in R knee swelling : 10cm above patella: +6.6cm mid patella: + 4.6cm mid calf: 3 cm Assessment Summary Assessment Pt increase swelling today see measurements taken. She declined CP in tx states doing at home. She improved demonstration in R knee flexion and ability to advance quality gait phases post use mirror and cuing before left. Physical Therapy Plan Frequency and Duration Frequency of Treatment 1-2x/week Plan of Care Start Date 05/05/22 Plan of Care End Date 06/30/22 Therapeutic Interventions Therapeutic Interventions Aquatic Therapy,Gait Training, Home Exercise Program,Joint Mobilizations,Manual Therapy, Patient/Caregiver Education, Self-Care/Home Management,Soft Tissue Mobilization,Taping, Therapeutic Activities, Therapeutic Exercises Modalities Cold Pack/Ice Massage,Electric Stimulation,Hot Packs, Ultrasound Next Visit Focus/Plan Next Note Type Treatment Note Next Visit Plan Check response to edema K taping. Continue to measure circumference and ROM for progress between txs, HEP ROM, gait phase quaility, hurdles when able. POC: PROM, stretching, gait training
--- NOTE | 2022-05-20 10:30 | PT.OTN ---
Current Diagnoses Stiffness of right knee, not elsewhere classified (05/20/22) Unspecified injury of right lower leg, initial encounter (05/20/22) Unspecified injury of right lower leg, subsequent encounter (05/20/22) Physical Therapy Treatment Note PT-OP-A Visit Information Start: 03/11/22 13:49 Freq: Status: Active Protocol: Document 05/20/22 09:51 TS (Rec: 05/20/22 11:42 TS [id number]) Out-Patient Physical Therapy Visit Information Visit Information Visit Type Treatment Note Visit Note TITUS Redd lead treatment under the supervision of ABDOULAYE Kaur. Visit Start Time 09:50 Visit Stop Time 10:30 Total Visit Minutes 40 Visit Number 4 Number of LOAN ASSOCIATE Visits 1 PT-OP-B Current Condition Start: 03/11/22 13:49 Freq: Status: Active Protocol: Document 03/11/22 09:45 DCW (Rec: 03/11/22 14:06 DCW [id number]) Current Condition History of Current Condition Onset Date 11/28/21 Current Complaints Right knee swelling, stiffness History of Current Condition Pt is a 61 year old female presenting to skilled therapy with a three month history of knee swelling and stiffness. Pt reports she tripped and fell on , and as she was holding things at the time, she was unable to catch herself, and fell onto her right knee with her full body weight. Pt reports that she had pretty significant pain for a few weeks, but it is now feeling a lot better. Pt reports that despite it feeling better, it is still swollen and so tight that she struggles to bend it. Pt went to the walk-in clinic one month ago, received x-rays, which were negative, and got referrals to PT and ortho. Admits she has not gone to ortho because they said they were surgeons, and I didn't think it was bad enough that I needed surgery, so I just didn't think I needed to go. Pt presents with a significant R limp due to walking with her knee in full extension at all times. Prior Treatments and Tests R knee x-ray: IMPRESSION: Small joint effusion. 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 Per: Bryce Julien M.D. on 02/09/2022 PT-OP-C Subjective Start: 03/11/22 13:49 Freq: Status: Active Protocol: Document 05/20/22 09:51 TS (Rec: 05/20/22 11:42 TS [id number]) OP-PT Subjective Patient Comments Patient Comments Pt reported she was supposed to see her orth doctor on Tuesday for an update on her MRI results but he did not show. Did not reschedule, may look for another ortho and also looking for to get set up with a primary physician. Pt would like to have a more substantial HEP for her knee and states PT once a week is not enough and there is no openings in PT for the next 2 weeks. Having some discomfort in low back during heelslides and thinks due to her limited . She stated didn't know if ktaping helped, SPTA removed. PT-OP-F Manual Assessment Start: 03/11/22 13:49 Freq: Status: Active Protocol: Document 03/11/22 09:45 DCW (Rec: 03/11/22 17:39 DCW [id number]) Manual Assessments Soft Tissue Assessment Soft Tissue Mobility Assessment Significant edema/effusion around right knee, however no notable tenderness or tone along soft tissue Joint Mobility Assessment Joint Mobility Assessment Minimal mobility of patella secondary to subpatellar edema . Severely limited right knee flexion both passively and actively PT-OP-G Mobility & Gait Start: 03/11/22 17:35 Freq: Status: Active Protocol: Document 03/11/22 09:45 DCW (Rec: 03/11/22 17:43 DCW [id number]) OP Gait Assessment Gait Gait Assistance Required: Independent Assistive Devices Assistive Device None Gait Deviations General Gait Pattern Antalgic Factors Limiting Gait Function Factors Limiting Gait Function Limited Range of Motion Comments Gait Comments Pt ambulates with her right knee in full extension, notes that it doesn't hurt, it just doesn't feel like it wants to bend. PT-OP-J Posture/Palpation/Skin Start: 03/11/22 13:49 Freq: Status: Active Protocol: Document 05/20/22 09:51 TS (Rec: 05/20/22 11:42 TS [id number]) Skin Assessment Circumference Measurement 10 cm superior to patella Location R leg Measurement (Centimeters) 70 Knee joint line Location R joint line Measurement (Centimeters) 53 Mid Calf Location R mid calf (9cm inferior patella) Measurement (Centimeters) 49.5 PT-OP-K Range of Motion Start: 03/11/22 13:49 Freq: Status: Active Protocol: Document 03/11/22 09:45 DCW (Rec: 03/11/22 17:39 DCW [id number]) Knee Goniometric Range of Motion Knee Right Knee ROM WFL No Patient Position Supine Flexion Active (degrees) 55 Flexion Passive (degrees) 70 Extension Active (degrees) 2 Extension Passive (degrees) 2 Knee ROM Limitations Knee ROM Limitations Swelling PT-OP-L Special Tests Start: 03/11/22 13:49 Freq: Status: Active Protocol: Document 03/11/22 09:45 DCW (Rec: 03/11/22 17:39 DCW [id number]) Special Tests Knee Special Tests Varus- 0 Degrees Test Results Negative Valgus- 0 Degrees Test Results Negative Posterior Draw Test Results Negative Patella Tap Test Results Positive R Elle Test Test Results Negative Gerri's Test Results Negative Anterior Draw Test Results Negative PT-OP-M Strength Start: 03/11/22 13:49 Freq: Status: Active Protocol: Document 03/11/22 09:45 DCW (Rec: 03/11/22 17:39 DCW [id number]) Knee Strength Knee Manual Muscle Testing Right Comments Pt able to hold position against full force with no pain, but unable to move through full flexion PT-OP-Q Treatments Start: 03/11/22 13:49 Freq: Status: Active Protocol: Document 05/20/22 09:51 TS (Rec: 05/20/22 11:42 TS [id number]) Therapeutic Exercises Supine Exercises Leg hang Supine Exercise Name Psoas/quad stretch off side of table Side right Reps/Minutes 4 min Heel slides Supine Exercise Name HS /c strap Side right Equipment Used MAt table, over 55cm ball Reps/Minutes x8 reps Comments cued ankle neutral. AAROM 52 deg. Gait Training Gait Activity gait phases/WB Description gait phase quality: fwd, side stepping Device Used SPC and no AD Level of Assistance SBA Surface firm carpet, mirror Distance/Duration [id number] Treatment Focus R knee and hip flexion, heel toe/DF, core fac, midline posture Comments Pt demonstrates with Hip hike of R side, provided cues for sequencing of cane, R knee flexion and DF during swing through to reduce hip hike. Pt reduced hip hike ~50% time with cues. Mirror for feedback . Manual Therapy Treatment Soft Tissue Mobilization quad Body Location R Mobilization Type Instrument Assisted,Manual Lymphatic Drainage Intensity/Depth Superficial Body Position Supine Comments gentle lymphatic manual and instruction self use light hands vs rolling pin over quad /HS. Joint Mobilizations Patella Direction Lateral, inferior, superior Grade I Body Position Sit Comments long sitting, manual and Instructed for self at home. Self-Care/Home Management Treatment Education Patient Education Safety Other Education 1.Education light edema mgt massage 2. added isometric HS holds, improved inhibition of quad and little improvement into R knee flexion, might get ball for home and know use strap for self ROM support 3. Education of importance of getting set up for care for ortho and general health, especially with swelling not improving. 4. Education of adverse affects to swelling, if worsens: redness/hot to touch/ tight calf/thigh, seek medical help (ER) for safety, possible DVT. Pt verbalized understanding. PT-OP-T Assessment and Plan Start: 03/11/22 13:49 Freq: Status: Active Protocol: Document 05/20/22 09:51 TS (Rec: 05/20/22 11:42 TS [id number]) Physical Therapy Assessment Goals Two Impairment Pt severely limited R knee flexion limits ambulation ability Detention Goal (LTG) Pt to improve right knee flexion AROM by at least 40? from 55? to 95? in order to normalize gait pattern and reduce risk for hip and back pain dur to gait disturbance. 05/20/22: No signiifcant AROM 55 deg LTG Duration 05/11/22 Slow progression 05/20 One Impairment Pt does not have an appropriate home exercise program Short Term Goal (STG) Pt to be independent and compliant with an appropriate HEP STG Duration 04/10/22 Assessment Summary Assessment Pt's swelling remains consistant, swelling 10cm superior 70cm, 53cm joint line , mid calf 49.cm Heelslide on R side much more comfortable for back alignment/support with ankle over 55 cm ball and support of use of strap. Pt required education on SPC use and gait phase pattern for normalized mobility. She demonstrates hip hike on R side, provided cues for knee flexion with improvement demontration carryover. Hip hike diminished to ~50% of the time when provided with cues. Pt would benefit continued skilled therapy 2x/wk for beneift from functional mobilty. Physical Therapy Plan Frequency and Duration Frequency of Treatment 1-2x/week Plan of Care Start Date 05/05/22 Plan of Care End Date 06/30/22 Therapeutic Interventions Therapeutic Interventions Aquatic Therapy,Gait Training, Home Exercise Program,Joint Mobilizations,Manual Therapy, Patient/Caregiver Education, Self-Care/Home Management,Soft Tissue Mobilization,Taping, Therapeutic Activities, Therapeutic Exercises Modalities Cold Pack/Ice Massage,Electric Stimulation,Hot Packs, Ultrasound Next Visit Focus/Plan Next Note Type Treatment Note Next Visit Plan Continue to measure circumference edema every tx and progress ROM, proper gait phase patterning and self between txs, try hurdles when able. Ask if set up genertal practioner and ortho for MRI results. POC: PROM, stretching, gait training
--- NOTE | 2022-06-30 10:30 | PT.OTN ---
Current Diagnoses Stiffness of right knee, not elsewhere classified (06/30/22) Unspecified injury of right lower leg, initial encounter (06/30/22) Unspecified injury of right lower leg, subsequent encounter (06/30/22) Physical Therapy Treatment Note PT-OP-A Visit Information Start: 03/11/22 13:49 Freq: Status: Active Protocol: Document 06/30/22 09:54 DCW (Rec: 06/30/22 10:30 DCW [id number]) Out-Patient Physical Therapy Visit Information Visit Information Visit Type Progress Note Visit Start Time 09:54 Visit Stop Time 10:30 Total Visit Minutes 36 Visit Number 5 Number of [employer] Visits 0 Precautions Precautions IMPRESSION: 1. Subtle oblique tear involving posterior horn of medial meniscus extending to inferior articulating surface. Lateral meniscus is intact. 2. Low-grade MCL sprain. Anterior and posterior cruciate ligaments are intact. 3. Moderate grade sprain/partial-thickness tear involving lateral patellofemoral ligament near patella insertion. Quadriceps tendon and patellar tendon are intact . 4. [id number] tricompartmental osteoarthritis and chondromalacia most notably in medial femoral tibial compartment. Small joint effusion. 5. Nonspecific mild subcutaneous soft tissue edema and small amount of fluid along anterior aspect of patella and patella tendon as above. Per Horacio Rojas M.D. on 04/26/2022 PT-OP-B Current Condition Start: 03/11/22 13:49 Freq: Status: Active Protocol: Document 03/11/22 09:45 DCW (Rec: 03/11/22 14:06 DCW [id number]) Current Condition History of Current Condition Onset Date 11/28/21 Current Complaints Right knee swelling, stiffness History of Current Condition Pt is a 61 year old female presenting to skilled therapy with a three month history of knee swelling and stiffness. Pt reports she tripped and fell on , and as she was holding things at the time, she was unable to catch herself, and fell onto her right knee with her full body weight. Pt reports that she had pretty significant pain for a few weeks, but it is now feeling a lot better. Pt reports that despite it feeling better, it is still swollen and so tight that she struggles to bend it. Pt went to the walk-in clinic one month ago, received x-rays, which were negative, and got referrals to PT and ortho. Admits she has not gone to ortho because they said they were surgeons, and I didn't think it was bad enough that I needed surgery, so I just didn't think I needed to go. Pt presents with a significant R limp due to walking with her knee in full extension at all times. Prior Treatments and Tests R knee x-ray: IMPRESSION: Small joint effusion. 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 Per: Bryce Julien M.D. on 02/09/2022 PT-OP-C Subjective Start: 03/11/22 13:49 Freq: Status: Active Protocol: Document 06/30/22 09:54 DCW (Rec: 06/30/22 10:30 DCW [id number]) OP-PT Subjective Patient Comments Patient Comments Pt still has not been seen by an ortho, has a scheduled visit July 13, 2022. PT-OP-F Manual Assessment Start: 03/11/22 13:49 Freq: Status: Active Protocol: Document 03/11/22 09:45 DCW (Rec: 03/11/22 17:39 DCW [id number]) Manual Assessments Soft Tissue Assessment Soft Tissue Mobility Assessment Significant edema/effusion around right knee, however no notable tenderness or tone along soft tissue Joint Mobility Assessment Joint Mobility Assessment Minimal mobility of patella secondary to subpatellar edema . Severely limited right knee flexion both passively and actively PT-OP-G Mobility & Gait Start: 03/11/22 17:35 Freq: Status: Active Protocol: Document 03/11/22 09:45 DCW (Rec: 03/11/22 17:43 DCW [id number]) OP Gait Assessment Gait Gait Assistance Required: Independent Assistive Devices Assistive Device None Gait Deviations General Gait Pattern Antalgic Factors Limiting Gait Function Factors Limiting Gait Function Limited Range of Motion Comments Gait Comments Pt ambulates with her right knee in full extension, notes that it doesn't hurt, it just doesn't feel like it wants to bend. PT-OP-J Posture/Palpation/Skin Start: 03/11/22 13:49 Freq: Status: Active Protocol: Document 06/30/22 09:54 DCW (Rec: 06/30/22 10:01 DCW [id number]) Skin Assessment Circumference Measurement 10 cm superior to patella Location R leg Measurement (Centimeters) 61.2 Knee joint line Location R joint line Measurement (Centimeters) 52.5 Mid Calf Location R mid calf (9cm inferior patella) Measurement (Centimeters) 49.6 PT-OP-K Range of Motion Start: 03/11/22 13:49 Freq: Status: Active Protocol: Document 06/30/22 09:54 DCW (Rec: 06/30/22 09:59 DCW [id number]) Knee Goniometric Range of Motion Knee Right Knee ROM WFL No Patient Position Sitting Flexion Active (degrees) 53 Flexion Passive (degrees) 70 Extension Active (degrees) 0 Extension Passive (degrees) 0 PT-OP-L Special Tests Start: 03/11/22 13:49 Freq: Status: Active Protocol: Document 06/30/22 09:54 DCW (Rec: 06/30/22 09:59 DCW [id number]) Special Tests Knee Special Tests Varus- 0 Degrees Test Results Negative Valgus- 0 Degrees Test Results Negative Posterior Draw Test Results Negative Patella Tap Test Results Positive R Elle Test Test Results Negative Gerri's Test Results Negative Anterior Draw Test Results Negative PT-OP-M Strength Start: 03/11/22 13:49 Freq: Status: Active Protocol: Document 03/11/22 09:45 DCW (Rec: 03/11/22 17:39 DCW [id number]) Knee Strength Knee Manual Muscle Testing Right Comments Pt able to hold position against full force with no pain, but unable to move through full flexion PT-OP-Q Treatments Start: 03/11/22 13:49 Freq: Status: Active Protocol: Document 06/30/22 09:54 DCW (Rec: 06/30/22 10:30 DCW [id number]) Cardio Equipment Recumbent Bicycle Duration (Minutes) 5 Seat Position 7 Other No full rotations Gym Equipment Shuttle Recovery Bilateral Squats Resistance 75# Shuttle Recovery Platform Stable Therapeutic Exercises Standing Exercises Flexion stretch Standing Exercise Name Step flexion stretch Side right Equipment Used 8 step Manual Therapy Treatment Soft Tissue Mobilization quad Body Location R Mobilization Type Strumming,Sustained Pressure Intensity/Depth Superficial Body Position Supine Joint Mobilizations Patella Direction Lateral, inferior, superior Grade I Body Position Sit Comments long sitting, manual and Instructed for self at home. Tibiofemoral Joint R knee Direction P->A Grade IV Body Position Sitting PT-OP-T Assessment and Plan Start: 03/11/22 13:49 Freq: Status: Active Protocol: Document 06/30/22 09:54 DCW (Rec: 06/30/22 10:30 DCW [id number]) Physical Therapy Assessment Goals Two Impairment Pt severely limited R knee flexion limits ambulation ability Fpc Goal (LTG) Pt to improve right knee flexion AROM by at least 40? from 55? to 95? in order to normalize gait pattern and reduce risk for hip and back pain dur to gait disturbance. 05/20/22: No signiifcant AROM 55 deg LTG Duration 08/31/22 Slow progression 06/30 One Impairment Pt does not have an appropriate home exercise program Short Term Goal (STG) Pt to be independent and compliant with an appropriate HEP STG Duration 07/31/22 Assessment Summary Assessment Pt making minimal progress, but has not been able to maintain regular schedule with PT. is scheduled out now more regularly, will hope to progress some by the time she is seen by an ortho next month . Physical Therapy Plan Frequency and Duration Frequency of Treatment 1-2x/week Plan of Care Start Date 06/30/22 Plan of Care End Date 08/31/22 Therapeutic Interventions Therapeutic Interventions Aquatic Therapy,Gait Training, Home Exercise Program,Joint Mobilizations,Manual Therapy, Patient/Caregiver Education, Self-Care/Home Management,Soft Tissue Mobilization,Taping, Therapeutic Activities, Therapeutic Exercises Modalities Cold Pack/Ice Massage,Electric Stimulation,Hot Packs, Ultrasound Next Visit Focus/Plan Next Note Type Treatment Note Next Visit Plan Continue to measure circumference edema every tx and progress ROM, proper gait phase patterning and self between txs, try hurdles when able. Ask if set up genertal practioner and ortho for MRI results. POC: PROM, stretching, gait training
--- NOTE | 2022-06-30 10:31 | PT.OPPOC ---
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 from 55? to 95? in order to normalize gait pattern and reduce risk for hip and back pain dur to gait disturbance. 05/20/22: No signiifcant AROM 55 deg LTG Duration 08/31/22 Slow progression 06/30 One Impairment Pt does not have an appropriate home exercise program Short Term Goal (STG) Pt to be independent and compliant with an appropriate HEP STG Duration 07/31/22 Assessment Summary Assessment Pt making minimal progress, but has not been able to maintain regular schedule with PT. is scheduled out now more regularly, will hope to progress some by the time she is seen by an ortho next month . Physical Therapy Plan Frequency and Duration Frequency of Treatment 1-2x/week Plan of Care Start Date 06/30/22 Plan of Care End Date 08/31/22 Therapeutic Interventions Therapeutic Interventions Aquatic Therapy,Gait Training, Home Exercise Program,Joint Mobilizations,Manual Therapy, Patient/Caregiver Education, Self-Care/Home Management,Soft Tissue Mobilization,Taping, Therapeutic Activities, Therapeutic Exercises Modalities Cold Pack/Ice Massage,Electric Stimulation,Hot Packs, Ultrasound Next Visit Focus/Plan Next Note Type Treatment Note Next Visit Plan Continue to measure circumference edema every tx and progress ROM, proper gait phase patterning and self between txs, try hurdles when able. Ask if set up genertal practioner and ortho for MRI results. POC: PROM, stretching, gait training Plan of Care Dates Plan of Care Start Date 06/30/22 Plan of Care End Date 08/31/22 Electronically Signed by: Km Clark, PT 06/30/22 3133 If you are in agreement with this Plan of Care, please return a signed and dated copy. I have reviewed this Plan of Care and certify that the skilled therapy services above are required to meet the patient?s needs. Physician Signature Date Printed Name and Credentials Clinical Instructor Signature Printed Name and Credentials
--- NOTE | 2022-07-02 10:26 | PT.OTN ---
Current Diagnoses Stiffness of right knee, not elsewhere classified (07/02/22) Unspecified injury of right lower leg, initial encounter (07/02/22) Unspecified injury of right lower leg, subsequent encounter (07/02/22) Physical Therapy Treatment Note PT-OP-A Visit Information Start: 03/11/22 13:49 Freq: Status: Active Protocol: Document 07/02/22 09:50 DCW (Rec: 07/02/22 10:26 DCW [id number]) Out-Patient Physical Therapy Visit Information Visit Information Visit Type Treatment Note Visit Start Time 09:50 Visit Stop Time 10:30 Total Visit Minutes 40 Visit Number 6 Number of MEDICAL [employer] EVALUATION SPECIALIST Visits 0 Evaluation Information Evaluation Date 03/11/22 Precautions Precautions IMPRESSION: 1. Subtle oblique tear involving posterior horn of medial meniscus extending to inferior articulating surface. Lateral meniscus is intact. 2. Low-grade MCL sprain. Anterior and posterior cruciate ligaments are intact. 3. Moderate grade sprain/partial-thickness tear involving lateral patellofemoral ligament near patella insertion. Quadriceps tendon and patellar tendon are intact . 4. [id number] tricompartmental osteoarthritis and chondromalacia most notably in medial femoral tibial compartment. Small joint effusion. 5. Nonspecific mild subcutaneous soft tissue edema and small amount of fluid along anterior aspect of patella and patella tendon as above. Per Horacio Rojas M.D. on 04/26/2022 PT-OP-B Current Condition Start: 03/11/22 13:49 Freq: Status: Active Protocol: Document 03/11/22 09:45 DCW (Rec: 03/11/22 14:06 DCW [id number]) Current Condition History of Current Condition Onset Date 11/28/21 Current Complaints Right knee swelling, stiffness History of Current Condition Pt is a 61 year old female presenting to skilled therapy with a three month history of knee swelling and stiffness. Pt reports she tripped and fell on , and as she was holding things at the time, she was unable to catch herself, and fell onto her right knee with her full body weight. Pt reports that she had pretty significant pain for a few weeks, but it is now feeling a lot better. Pt reports that despite it feeling better, it is still swollen and so tight that she struggles to bend it. Pt went to the walk-in clinic one month ago, received x-rays, which were negative, and got referrals to PT and ortho. Admits she has not gone to ortho because they said they were surgeons, and I didn't think it was bad enough that I needed surgery, so I just didn't think I needed to go. Pt presents with a significant R limp due to walking with her knee in full extension at all times. Prior Treatments and Tests R knee x-ray: IMPRESSION: Small joint effusion. 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 Per: Bryce Julien M.D. on 02/09/2022 PT-OP-C Subjective Start: 03/11/22 13:49 Freq: Status: Active Protocol: Document 07/02/22 09:50 DCW (Rec: 07/02/22 10:26 DCW [id number]) OP-PT Subjective Patient Comments Patient Comments Pt admits that her knee felt a lot stiffer after her last visit. PT-OP-F Manual Assessment Start: 03/11/22 13:49 Freq: Status: Active Protocol: Document 03/11/22 09:45 DCW (Rec: 03/11/22 17:39 DCW [id number]) Manual Assessments Soft Tissue Assessment Soft Tissue Mobility Assessment Significant edema/effusion around right knee, however no notable tenderness or tone along soft tissue Joint Mobility Assessment Joint Mobility Assessment Minimal mobility of patella secondary to subpatellar edema . Severely limited right knee flexion both passively and actively PT-OP-G Mobility & Gait Start: 03/11/22 17:35 Freq: Status: Active Protocol: Document 03/11/22 09:45 DCW (Rec: 03/11/22 17:43 DCW [id number]) OP Gait Assessment Gait Gait Assistance Required: Independent Assistive Devices Assistive Device None Gait Deviations General Gait Pattern Antalgic Factors Limiting Gait Function Factors Limiting Gait Function Limited Range of Motion Comments Gait Comments Pt ambulates with her right knee in full extension, notes that it doesn't hurt, it just doesn't feel like it wants to bend. PT-OP-J Posture/Palpation/Skin Start: 03/11/22 13:49 Freq: Status: Active Protocol: Document 06/30/22 09:54 DCW (Rec: 06/30/22 10:01 DCW [id number]) Skin Assessment Circumference Measurement 10 cm superior to patella Location R leg Measurement (Centimeters) 61.2 Knee joint line Location R joint line Measurement (Centimeters) 52.5 Mid Calf Location R mid calf (9cm inferior patella) Measurement (Centimeters) 49.6 PT-OP-K Range of Motion Start: 03/11/22 13:49 Freq: Status: Active Protocol: Document 06/30/22 09:54 DCW (Rec: 06/30/22 09:59 DCW [id number]) Knee Goniometric Range of Motion Knee Right Knee ROM WFL No Patient Position Sitting Flexion Active (degrees) 53 Flexion Passive (degrees) 70 Extension Active (degrees) 0 Extension Passive (degrees) 0 PT-OP-L Special Tests Start: 03/11/22 13:49 Freq: Status: Active Protocol: Document 06/30/22 09:54 DCW (Rec: 06/30/22 09:59 DCW [id number]) Special Tests Knee Special Tests Varus- 0 Degrees Test Results Negative Valgus- 0 Degrees Test Results Negative Posterior Draw Test Results Negative Patella Tap Test Results Positive R Elle Test Test Results Negative Gerri's Test Results Negative Anterior Draw Test Results Negative PT-OP-M Strength Start: 03/11/22 13:49 Freq: Status: Active Protocol: Document 03/11/22 09:45 DCW (Rec: 03/11/22 17:39 DCW [id number]) Knee Strength Knee Manual Muscle Testing Right Comments Pt able to hold position against full force with no pain, but unable to move through full flexion PT-OP-Q Treatments Start: 03/11/22 13:49 Freq: Status: Active Protocol: Document 07/02/22 09:50 DCW (Rec: 07/02/22 10:26 DCW [id number]) Cardio Equipment Recumbent Bicycle Duration (Minutes) 6 Seat Position 7 Other No full rotations Gym Equipment Shuttle Recovery Bilateral Squats Resistance 75# Shuttle Recovery Platform Stable Therapeutic Exercises Supine Exercises Hamstring Stretch Supine Exercise Name HS stretch Side right Heel slides Supine Exercise Name HS /c strap Side right Equipment Used Mat table, over 55cm ball Reps/Minutes x8 reps Comments cued ankle neutral. AAROM 52 deg. Standing Exercises TKE Standing Exercise Name TKE Side right Resistance Lv 3 Step-ups Standing Exercise Name Step-ups Side right Equipment Used 4 step Flexion stretch Standing Exercise Name Step flexion stretch Side right Equipment Used 8 step PT-OP-T Assessment and Plan Start: 03/11/22 13:49 Freq: Status: Active Protocol: Document 07/02/22 09:50 DCW (Rec: 07/02/22 10:26 DCW [id number]) Physical Therapy Assessment Goals Two Impairment Pt severely limited R knee flexion limits ambulation ability Senior Living Goal (LTG) Pt to improve right knee flexion AROM by at least 40? from 55? to 95? in order to normalize gait pattern and reduce risk for hip and back pain dur to gait disturbance. 05/20/22: No signiifcant AROM 55 deg LTG Duration 08/31/22 Slow progression 06/30 One Impairment Pt does not have an appropriate home exercise program Short Term Goal (STG) Pt to be independent and compliant with an appropriate HEP STG Duration 07/31/22 Assessment Summary Assessment Minimal progression with knee flexion, continues to ambulate with a fully extended knee. Pt worried about upcoming ortho appointments, expects she will require surgery. Physical Therapy Plan Frequency and Duration Frequency of Treatment 1-2x/week Plan of Care Start Date 06/30/22 Plan of Care End Date 08/31/22 Therapeutic Interventions Therapeutic Interventions Aquatic Therapy,Gait Training, Home Exercise Program,Joint Mobilizations,Manual Therapy, Patient/Caregiver Education, Self-Care/Home Management,Soft Tissue Mobilization,Taping, Therapeutic Activities, Therapeutic Exercises Modalities Cold Pack/Ice Massage,Electric Stimulation,Hot Packs, Ultrasound Next Visit Focus/Plan Next Note Type Treatment Note Next Visit Plan Continue to measure circumference edema every tx and progress ROM, proper gait phase patterning and self between txs, try hurdles when able. Ask if set up genertal practioner and ortho for MRI results. POC: PROM, stretching, gait training
--- NOTE | 2022-07-06 10:33 | PT.OTN ---
Current Diagnoses Stiffness of right knee, not elsewhere classified (07/06/22) Unspecified injury of right lower leg, initial encounter (07/06/22) Unspecified injury of right lower leg, subsequent encounter (07/06/22) Physical Therapy Treatment Note PT-OP-A Visit Information Start: 03/11/22 13:49 Freq: Status: Active Protocol: Document 07/06/22 09:49 DCW (Rec: 07/06/22 10:32 DCW [id number]) Out-Patient Physical Therapy Visit Information Visit Information Visit Type Treatment Note Visit Start Time 09:49 Visit Stop Time 10:30 Total Visit Minutes 41 Visit Number 7 Number of SLIP SEAT COVERER Visits 0 Evaluation Information Evaluation Date 03/11/22 Precautions Precautions IMPRESSION: 1. Subtle oblique tear involving posterior horn of medial meniscus extending to inferior articulating surface. Lateral meniscus is intact. 2. Low-grade MCL sprain. Anterior and posterior cruciate ligaments are intact. 3. Moderate grade sprain/partial-thickness tear involving lateral patellofemoral ligament near patella insertion. Quadriceps tendon and patellar tendon are intact . 4. [id number] tricompartmental osteoarthritis and chondromalacia most notably in medial femoral tibial compartment. Small joint effusion. 5. Nonspecific mild subcutaneous soft tissue edema and small amount of fluid along anterior aspect of patella and patella tendon as above. Per Horacio Rojas M.D. on 04/26/2022 PT-OP-B Current Condition Start: 03/11/22 13:49 Freq: Status: Active Protocol: Document 03/11/22 09:45 DCW (Rec: 03/11/22 14:06 DCW [id number]) Current Condition History of Current Condition Onset Date 11/28/21 Current Complaints Right knee swelling, stiffness History of Current Condition Pt is a 61 year old female presenting to skilled therapy with a three month history of knee swelling and stiffness. Pt reports she tripped and fell on , and as she was holding things at the time, she was unable to catch herself, and fell onto her right knee with her full body weight. Pt reports that she had pretty significant pain for a few weeks, but it is now feeling a lot better. Pt reports that despite it feeling better, it is still swollen and so tight that she struggles to bend it. Pt went to the walk-in clinic one month ago, received x-rays, which were negative, and got referrals to PT and ortho. Admits she has not gone to ortho because they said they were surgeons, and I didn't think it was bad enough that I needed surgery, so I just didn't think I needed to go. Pt presents with a significant R limp due to walking with her knee in full extension at all times. Prior Treatments and Tests R knee x-ray: IMPRESSION: Small joint effusion. 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 Per: Bryce Julien M.D. on 02/09/2022 PT-OP-C Subjective Start: 03/11/22 13:49 Freq: Status: Active Protocol: Document 07/06/22 09:49 DCW (Rec: 07/06/22 10:32 DCW [id number]) OP-PT Subjective Patient Comments Patient Comments About the same, no sudden changes. PT-OP-F Manual Assessment Start: 03/11/22 13:49 Freq: Status: Active Protocol: Document 03/11/22 09:45 DCW (Rec: 03/11/22 17:39 DCW [id number]) Manual Assessments Soft Tissue Assessment Soft Tissue Mobility Assessment Significant edema/effusion around right knee, however no notable tenderness or tone along soft tissue Joint Mobility Assessment Joint Mobility Assessment Minimal mobility of patella secondary to subpatellar edema . Severely limited right knee flexion both passively and actively PT-OP-G Mobility & Gait Start: 03/11/22 17:35 Freq: Status: Active Protocol: Document 03/11/22 09:45 DCW (Rec: 03/11/22 17:43 DCW [id number]) OP Gait Assessment Gait Gait Assistance Required: Independent Assistive Devices Assistive Device None Gait Deviations General Gait Pattern Antalgic Factors Limiting Gait Function Factors Limiting Gait Function Limited Range of Motion Comments Gait Comments Pt ambulates with her right knee in full extension, notes that it doesn't hurt, it just doesn't feel like it wants to bend. PT-OP-J Posture/Palpation/Skin Start: 03/11/22 13:49 Freq: Status: Active Protocol: Document 06/30/22 09:54 DCW (Rec: 06/30/22 10:01 DCW [id number]) Skin Assessment Circumference Measurement 10 cm superior to patella Location R leg Measurement (Centimeters) 61.2 Knee joint line Location R joint line Measurement (Centimeters) 52.5 Mid Calf Location R mid calf (9cm inferior patella) Measurement (Centimeters) 49.6 PT-OP-K Range of Motion Start: 03/11/22 13:49 Freq: Status: Active Protocol: Document 06/30/22 09:54 DCW (Rec: 06/30/22 09:59 DCW [id number]) Knee Goniometric Range of Motion Knee Right Knee ROM WFL No Patient Position Sitting Flexion Active (degrees) 53 Flexion Passive (degrees) 70 Extension Active (degrees) 0 Extension Passive (degrees) 0 PT-OP-L Special Tests Start: 03/11/22 13:49 Freq: Status: Active Protocol: Document 06/30/22 09:54 DCW (Rec: 06/30/22 09:59 DCW [id number]) Special Tests Knee Special Tests Varus- 0 Degrees Test Results Negative Valgus- 0 Degrees Test Results Negative Posterior Draw Test Results Negative Patella Tap Test Results Positive R Elle Test Test Results Negative Gerri's Test Results Negative Anterior Draw Test Results Negative PT-OP-M Strength Start: 03/11/22 13:49 Freq: Status: Active Protocol: Document 03/11/22 09:45 DCW (Rec: 03/11/22 17:39 DCW [id number]) Knee Strength Knee Manual Muscle Testing Right Comments Pt able to hold position against full force with no pain, but unable to move through full flexion PT-OP-Q Treatments Start: 03/11/22 13:49 Freq: Status: Active Protocol: Document 07/06/22 09:49 DCW (Rec: 07/06/22 10:32 DCW [id number]) Cardio Equipment Recumbent Bicycle Duration (Minutes) 6 Seat Position 7 Other No full rotations Gym Equipment Shuttle Recovery Bilateral Squats Resistance 75# Shuttle Recovery Platform Stable Therapeutic Exercises Supine Exercises Hamstring Stretch Supine Exercise Name HS stretch Side right Heel slides Supine Exercise Name HS /c strap Side right Equipment Used Mat table, over 55cm ball Reps/Minutes x8 reps Comments cued ankle neutral. AAROM 52 deg. Standing Exercises TKE Standing Exercise Name TKE Side right Resistance Lv 3 Step-ups Standing Exercise Name Step-ups Side right Equipment Used 6 step Flexion stretch Standing Exercise Name Step flexion stretch Side right Equipment Used 12 step Manual Therapy Treatment Soft Tissue Mobilization quad Body Location R guad, HS, calf Mobilization Type Strumming,Sustained Pressure Intensity/Depth Superficial Body Position Supine PT-OP-T Assessment and Plan Start: 03/11/22 13:49 Freq: Status: Active Protocol: Document 07/06/22 09:49 DCW (Rec: 07/06/22 10:32 DCW [id number]) Physical Therapy Assessment Goals Two Impairment Pt severely limited R knee flexion limits ambulation ability Fpc Goal (LTG) Pt to improve right knee flexion AROM by at least 40? from 55? to 95? in order to normalize gait pattern and reduce risk for hip and back pain dur to gait disturbance. 05/20/22: No signiifcant AROM 55 deg LTG Duration 08/31/22 Slow progression 06/30 One Impairment Pt does not have an appropriate home exercise program Short Term Goal (STG) Pt to be independent and compliant with an appropriate HEP STG Duration 07/31/22 Assessment Summary Assessment Increased tenderness with STM today along proximal gastroc and distal hamstrings. Cntinues to exhibit ROM flexion ~70?. Physical Therapy Plan Frequency and Duration Frequency of Treatment 1-2x/week Plan of Care Start Date 06/30/22 Plan of Care End Date 08/31/22 Therapeutic Interventions Therapeutic Interventions Aquatic Therapy,Gait Training, Home Exercise Program,Joint Mobilizations,Manual Therapy, Patient/Caregiver Education, Self-Care/Home Management,Soft Tissue Mobilization,Taping, Therapeutic Activities, Therapeutic Exercises Modalities Cold Pack/Ice Massage,Electric Stimulation,Hot Packs, Ultrasound Next Visit Focus/Plan Next Note Type Treatment Note Next Visit Plan Continue to measure circumference edema every tx and progress ROM, proper gait phase patterning and self between txs, try hurdles when able. Ask if set up genertal practioner and ortho for MRI results. POC: PROM, stretching, gait training
--- NOTE | 2022-07-09 10:30 | PT.OTN ---
Current Diagnoses Stiffness of right knee, not elsewhere classified (07/09/22) Unspecified injury of right lower leg, initial encounter (07/09/22) Unspecified injury of right lower leg, subsequent encounter (07/09/22) Physical Therapy Treatment Note PT-OP-A Visit Information Start: 03/11/22 13:49 Freq: Status: Active Protocol: Document 07/09/22 09:49 SP (Rec: 07/09/22 10:40 SP [id number]) Out-Patient Physical Therapy Visit Information Visit Information Visit Type Treatment Note Visit Start Time 09:49 Visit Stop Time 10:30 Total Visit Minutes 41 Visit Number 8 Number of RN OR LPN Visits 1 Evaluation Information Evaluation Date 03/11/22 Precautions Precautions IMPRESSION: 1. Subtle oblique tear involving posterior horn of medial meniscus extending to inferior articulating surface. Lateral meniscus is intact. 2. Low-grade MCL sprain. Anterior and posterior cruciate ligaments are intact. 3. Moderate grade sprain/partial-thickness tear involving lateral patellofemoral ligament near patella insertion. Quadriceps tendon and patellar tendon are intact . 4. Tlch-bm-cidckomu tricompartmental osteoarthritis and chondromalacia most notably in medial femoral tibial compartment. Small joint effusion. 5. Nonspecific mild subcutaneous soft tissue edema and small amount of fluid along anterior aspect of patella and patella tendon as above. Per Horacio Rojas M.D. on 04/26/2022 PT-OP-B Current Condition Start: 03/11/22 13:49 Freq: Status: Active Protocol: Document 03/11/22 09:45 DCW (Rec: 03/11/22 14:06 DCW [id number]) Current Condition History of Current Condition Onset Date 11/28/21 Current Complaints Right knee swelling, stiffness History of Current Condition Pt is a 61 year old female presenting to skilled therapy with a three month history of knee swelling and stiffness. Pt reports she tripped and fell on , and as she was holding things at the time, she was unable to catch herself, and fell onto her right knee with her full body weight. Pt reports that she had pretty significant pain for a few weeks, but it is now feeling a lot better. Pt reports that despite it feeling better, it is still swollen and so tight that she struggles to bend it. Pt went to the walk-in clinic one month ago, received x-rays, which were negative, and got referrals to PT and ortho. Admits she has not gone to ortho because they said they were surgeons, and I didn't think it was bad enough that I needed surgery, so I just didn't think I needed to go. Pt presents with a significant R limp due to walking with her knee in full extension at all times. Prior Treatments and Tests R knee x-ray: IMPRESSION: Small joint effusion. 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 Per: Bryce Julien M.D. on 02/09/2022 PT-OP-C Subjective Start: 03/11/22 13:49 Freq: Status: Active Protocol: Document 07/09/22 09:49 SP (Rec: 07/09/22 10:40 SP [id number]) OP-PT Subjective Patient Comments Patient Comments Pt reports R knee pretty stiff . She demonstrates stiff straight R knee during advancement. See Dr Pate on [place]. PT-OP-F Manual Assessment Start: 03/11/22 13:49 Freq: Status: Active Protocol: Document 03/11/22 09:45 DCW (Rec: 03/11/22 17:39 DCW [id number]) Manual Assessments Soft Tissue Assessment Soft Tissue Mobility Assessment Significant edema/effusion around right knee, however no notable tenderness or tone along soft tissue Joint Mobility Assessment Joint Mobility Assessment Minimal mobility of patella secondary to subpatellar edema . Severely limited right knee flexion both passively and actively PT-OP-G Mobility & Gait Start: 03/11/22 17:35 Freq: Status: Active Protocol: Document 03/11/22 09:45 DCW (Rec: 03/11/22 17:43 DCW [id number]) OP Gait Assessment Gait Gait Assistance Required: Independent Assistive Devices Assistive Device None Gait Deviations General Gait Pattern Antalgic Factors Limiting Gait Function Factors Limiting Gait Function Limited Range of Motion Comments Gait Comments Pt ambulates with her right knee in full extension, notes that it doesn't hurt, it just doesn't feel like it wants to bend. PT-OP-J Posture/Palpation/Skin Start: 03/11/22 13:49 Freq: Status: Active Protocol: Document 06/30/22 09:54 DCW (Rec: 06/30/22 10:01 DCW [id number]) Skin Assessment Circumference Measurement 10 cm superior to patella Location R leg Measurement (Centimeters) 61.2 Knee joint line Location R joint line Measurement (Centimeters) 52.5 Mid Calf Location R mid calf (9cm inferior patella) Measurement (Centimeters) 49.6 PT-OP-K Range of Motion Start: 03/11/22 13:49 Freq: Status: Active Protocol: Document 07/09/22 09:49 SP (Rec: 07/09/22 10:40 SP [id number]) Knee Goniometric Range of Motion Knee Right Knee ROM WFL No Patient Position Sitting Flexion Active (degrees) 70 Flexion Passive (degrees) 80 Extension Active (degrees) 0 Comments R relaxed extension 2deg. R knee AROM impproved 23deg, PROM 10 deg. PT-OP-L Special Tests Start: 03/11/22 13:49 Freq: Status: Active Protocol: Document 06/30/22 09:54 DCW (Rec: 06/30/22 09:59 DCW [id number]) Special Tests Knee Special Tests Varus- 0 Degrees Test Results Negative Valgus- 0 Degrees Test Results Negative Posterior Draw Test Results Negative Patella Tap Test Results Positive R Elle Test Test Results Negative Gerri's Test Results Negative Anterior Draw Test Results Negative PT-OP-M Strength Start: 03/11/22 13:49 Freq: Status: Active Protocol: Document 03/11/22 09:45 DCW (Rec: 03/11/22 17:39 DCW [id number]) Knee Strength Knee Manual Muscle Testing Right Comments Pt able to hold position against full force with no pain, but unable to move through full flexion PT-OP-Q Treatments Start: 03/11/22 13:49 Freq: Status: Active Protocol: Document 07/09/22 09:49 SP (Rec: 07/09/22 10:40 SP [id number]) Cardio Equipment Recumbent Bicycle Duration (Minutes) 6 Resistance 0 Seat Position 7 Other rocking, UE support posteriorly R knee for bend Gym Equipment Shuttle Recovery Bilateral Squats Resistance 75# Shuttle Recovery Platform Stable Reps/Time 5s hold x10 reps Therapeutic Exercises Supine Exercises Leg hang Supine Exercise Name quad stretch Side right Equipment Used lower leg off table. Reps/Minutes 1 min x2 Comments occasional knee extension ROM. Heel slides Supine Exercise Name HS /c strap : 80 deg flexion Side right Equipment Used Mat table, over 55cm ball Reps/Minutes x8 reps Comments cued ankle neutral. AAROM 52 deg. Gait Training Gait Activity gait phases/WB Description gait phase quality: fwd, side stepping Device Used 0 Level of Assistance S Surface firm carpet, mirror Distance/Duration [id number] Treatment Focus R knee and hip flexion, heel toe/DF, core fac, midline posture Comments Pt decreased Hip hike on R LE, provided cues for R hip/knee flexion/DF during swing through to reduce hip hike, level shlds and pelvis. Improves with reps Manual Therapy Treatment Soft Tissue Mobilization quad Body Location R guad, HS, calf Mobilization Type Instrument Assisted,Strumming, Sustained Pressure Intensity/Depth Superficial Body Position Supine Comments manual and little lower leg off table w/ rolling pin. PT-OP-T Assessment and Plan Start: 03/11/22 13:49 Freq: Status: Active Protocol: Document 07/09/22 09:49 SP (Rec: 07/09/22 10:40 SP [id number]) Physical Therapy Assessment Goals Two Impairment Pt severely limited R knee flexion limits ambulation ability Fixed Income Director Goal (LTG) Pt to improve right knee flexion AROM by at least 40? from 55? to 95? in order to normalize gait pattern and reduce risk for hip and back pain dur to gait disturbance. 05/20/22: No signiifcant AROM 55 deg 07/09/22: improving AROM 70 deg on table post AAROM heel side over 55cm tball w/ Strap80 deg . LTG Duration 08/31/22 Slow progression One Impairment Pt does not have an appropriate home exercise program Short Term Goal (STG) Pt to be independent and compliant with an appropriate HEP 07/09/22: added quad passive stretch Lower leg off table hooklying. STG Duration 07/31/22 Progress Towards Goals Progress Comments R relaxed extension 2deg. R knee: AROM impproved 23deg 70deg, PROM 10 deg 80 deg. Assessment Summary Assessment Pt reports discomfort flexion lower leg off table, shuttle press but finds is helping and demonstrates improved gait phase walking. Use of mirror for self corrections no hip hike, perform DF/ knee/ hip flexion and improved receiprocal. Physical Therapy Plan Frequency and Duration Frequency of Treatment 1-2x/week Plan of Care Start Date 06/30/22 Plan of Care End Date 08/31/22 Therapeutic Interventions Therapeutic Interventions Aquatic Therapy,Gait Training, Home Exercise Program,Joint Mobilizations,Manual Therapy, Patient/Caregiver Education, Self-Care/Home Management,Soft Tissue Mobilization,Taping, Therapeutic Activities, Therapeutic Exercises Modalities Cold Pack/Ice Massage,Electric Stimulation,Hot Packs, Ultrasound Next Visit Focus/Plan Next Note Type Treatment Note Next Visit Plan Ask how Dr Pate appt went. POC: Continue to measure circumference edema every tx and progress ROM, proper gait phase patterning and self between txs, try hurdles when able. Ask if set up genertal practioner and ortho for MRI results. POC: PROM, stretching, gait training
--- NOTE | 2022-07-16 10:29 | PT.OTN ---
Current Diagnoses Stiffness of right knee, not elsewhere classified (07/16/22) Unspecified injury of right lower leg, initial encounter (07/16/22) Unspecified injury of right lower leg, subsequent encounter (07/16/22) Physical Therapy Treatment Note PT-OP-A Visit Information Start: 03/11/22 13:49 Freq: Status: Active Protocol: Document 07/16/22 09:45 DCW (Rec: 07/16/22 10:29 DCW [id number]) Out-Patient Physical Therapy Visit Information Visit Information Visit Type Treatment Note Visit Start Time 09:45 Visit Stop Time 10:30 Total Visit Minutes 45 Visit Number 9 Number of HOTEL SERVER Visits 0 Evaluation Information Evaluation Date 03/11/22 Precautions Precautions IMPRESSION: 1. Subtle oblique tear involving posterior horn of medial meniscus extending to inferior articulating surface. Lateral meniscus is intact. 2. Low-grade MCL sprain. Anterior and posterior cruciate ligaments are intact. 3. Moderate grade sprain/partial-thickness tear involving lateral patellofemoral ligament near patella insertion. Quadriceps tendon and patellar tendon are intact . 4. Kdvn-ah-unljsush tricompartmental osteoarthritis and chondromalacia most notably in medial femoral tibial compartment. Small joint effusion. 5. Nonspecific mild subcutaneous soft tissue edema and small amount of fluid along anterior aspect of patella and patella tendon as above. Per Horacio Rojas M.D. on 04/26/2022 PT-OP-B Current Condition Start: 03/11/22 13:49 Freq: Status: Active Protocol: Document 03/11/22 09:45 DCW (Rec: 03/11/22 14:06 DCW [id number]) Current Condition History of Current Condition Onset Date 11/28/21 Current Complaints Right knee swelling, stiffness History of Current Condition Pt is a 61 year old female presenting to skilled therapy with a three month history of knee swelling and stiffness. Pt reports she tripped and fell on , and as she was holding things at the time, she was unable to catch herself, and fell onto her right knee with her full body weight. Pt reports that she had pretty significant pain for a few weeks, but it is now feeling a lot better. Pt reports that despite it feeling better, it is still swollen and so tight that she struggles to bend it. Pt went to the walk-in clinic one month ago, received x-rays, which were negative, and got referrals to PT and ortho. Admits she has not gone to ortho because they said they were surgeons, and I didn't think it was bad enough that I needed surgery, so I just didn't think I needed to go. Pt presents with a significant R limp due to walking with her knee in full extension at all times. Prior Treatments and Tests R knee x-ray: IMPRESSION: Small joint effusion. 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 Per: Bryce Julien M.D. on 02/09/2022 PT-OP-C Subjective Start: 03/11/22 13:49 Freq: Status: Active Protocol: Document 07/16/22 09:45 DCW (Rec: 07/16/22 10:29 DCW [id number]) OP-PT Subjective Patient Comments Patient Comments Pt reports she saw Dr Pate earlier this week, he does not feel her meniscus tear is from her fall, it is more a degenerative wearing down tear . Notes that her knee immobility is simply a flare- up of arthritis, and should calm down over time. PT-OP-F Manual Assessment Start: 03/11/22 13:49 Freq: Status: Active Protocol: Document 03/11/22 09:45 DCW (Rec: 03/11/22 17:39 DCW [id number]) Manual Assessments Soft Tissue Assessment Soft Tissue Mobility Assessment Significant edema/effusion around right knee, however no notable tenderness or tone along soft tissue Joint Mobility Assessment Joint Mobility Assessment Minimal mobility of patella secondary to subpatellar edema . Severely limited right knee flexion both passively and actively PT-OP-G Mobility & Gait Start: 03/11/22 17:35 Freq: Status: Active Protocol: Document 03/11/22 09:45 DCW (Rec: 03/11/22 17:43 DCW [id number]) OP Gait Assessment Gait Gait Assistance Required: Independent Assistive Devices Assistive Device None Gait Deviations General Gait Pattern Antalgic Factors Limiting Gait Function Factors Limiting Gait Function Limited Range of Motion Comments Gait Comments Pt ambulates with her right knee in full extension, notes that it doesn't hurt, it just doesn't feel like it wants to bend. PT-OP-J Posture/Palpation/Skin Start: 03/11/22 13:49 Freq: Status: Active Protocol: Document 06/30/22 09:54 DCW (Rec: 06/30/22 10:01 DCW [id number]) Skin Assessment Circumference Measurement 10 cm superior to patella Location R leg Measurement (Centimeters) 61.2 Knee joint line Location R joint line Measurement (Centimeters) 52.5 Mid Calf Location R mid calf (9cm inferior patella) Measurement (Centimeters) 49.6 PT-OP-K Range of Motion Start: 03/11/22 13:49 Freq: Status: Active Protocol: Document 07/09/22 09:49 SP (Rec: 07/09/22 10:40 SP [id number]) Knee Goniometric Range of Motion Knee Right Knee ROM WFL No Patient Position Sitting Flexion Active (degrees) 70 Flexion Passive (degrees) 80 Extension Active (degrees) 0 Comments R relaxed extension 2deg. R knee AROM impproved 23deg, PROM 10 deg. PT-OP-L Special Tests Start: 03/11/22 13:49 Freq: Status: Active Protocol: Document 06/30/22 09:54 DCW (Rec: 06/30/22 09:59 DCW [id number]) Special Tests Knee Special Tests Varus- 0 Degrees Test Results Negative Valgus- 0 Degrees Test Results Negative Posterior Draw Test Results Negative Patella Tap Test Results Positive R Elle Test Test Results Negative Gerri's Test Results Negative Anterior Draw Test Results Negative PT-OP-M Strength Start: 03/11/22 13:49 Freq: Status: Active Protocol: Document 03/11/22 09:45 DCW (Rec: 03/11/22 17:39 DCW [id number]) Knee Strength Knee Manual Muscle Testing Right Comments Pt able to hold position against full force with no pain, but unable to move through full flexion PT-OP-Q Treatments Start: 03/11/22 13:49 Freq: Status: Active Protocol: Document 07/16/22 09:45 DCW (Rec: 07/16/22 10:29 DCW [id number]) Cardio Equipment Recumbent Bicycle Duration (Minutes) 6 Resistance 0 Seat Position 7 Other rocking, UE support posteriorly R knee for bend Therapeutic Exercises Standing Exercises TKE Standing Exercise Name TKE Side right Resistance Lv 3 Step-ups Standing Exercise Name Step-ups Side right Equipment Used 6 step Flexion stretch Standing Exercise Name Step flexion stretch Side right Equipment Used 12 step Manual Therapy Treatment Soft Tissue Mobilization quad Body Location R quad, HS, calf Mobilization Type Strumming,Sustained Pressure Intensity/Depth Superficial Body Position Supine Joint Mobilizations Patella Direction Lateral, inferior, superior Grade I Body Position Sit Comments long sitting, manual and Instructed for self at home. Tibiofemoral Joint R knee Direction P->A Grade IV Body Position Sitting PT-OP-T Assessment and Plan Start: 03/11/22 13:49 Freq: Status: Active Protocol: Document 07/16/22 09:45 DCW (Rec: 07/16/22 10:29 DCW [id number]) Physical Therapy Assessment Goals Two Impairment Pt severely limited R knee flexion limits ambulation ability Long-Term Goal (LTG) Pt to improve right knee flexion AROM by at least 40? from 55? to 95? in order to normalize gait pattern and reduce risk for hip and back pain dur to gait disturbance. 05/20/22: No signiifcant AROM 55 deg LTG Duration 08/31/22 Slow progression 06/30 One Impairment Pt does not have an appropriate home exercise program Short Term Goal (STG) Pt to be independent and compliant with an appropriate HEP STG Duration 07/31/22 Progress Towards Goals Progress Comments R knee PROM flexion measured at 87? today. Assessment Summary Assessment Pt appears to be more encouraged today following her ortho appointment earlier this week. Able to tolerate increased PROM, working harder with flexion stretches on recumbent bike and stair stretch. Physical Therapy Plan Frequency and Duration Frequency of Treatment 1-2x/week Plan of Care Start Date 06/30/22 Plan of Care End Date 08/31/22 Therapeutic Interventions Therapeutic Interventions Aquatic Therapy,Gait Training, Home Exercise Program,Joint Mobilizations,Manual Therapy, Patient/Caregiver Education, Self-Care/Home Management,Soft Tissue Mobilization,Taping, Therapeutic Activities, Therapeutic Exercises Modalities Cold Pack/Ice Massage,Electric Stimulation,Hot Packs, Ultrasound Next Visit Focus/Plan Next Note Type Treatment Note Next Visit Plan POC: Continue to measure circumference edema every tx and progress ROM, proper gait phase patterning and self between txs, try hurdles when able. Ask if set up genertal practioner and ortho for MRI results. POC: PROM, stretching, gait training
--- NOTE | 2022-07-20 10:30 | PT.OTN ---
Current Diagnoses Stiffness of right knee, not elsewhere classified (07/20/22) Unspecified injury of right lower leg, initial encounter (07/20/22) Unspecified injury of right lower leg, subsequent encounter (07/20/22) Physical Therapy Treatment Note PT-OP-A Visit Information Start: 03/11/22 13:49 Freq: Status: Active Protocol: Document 07/20/22 09:49 DCW (Rec: 07/20/22 10:29 DCW [id number]) Out-Patient Physical Therapy Visit Information Visit Information Visit Type Progress Note Visit Start Time 09:49 Visit Stop Time 10:30 Total Visit Minutes 41 Visit Number 10 Number of PANEL MONITOR Visits 0 Evaluation Information Evaluation Date 03/11/22 Precautions Precautions IMPRESSION: 1. Subtle oblique tear involving posterior horn of medial meniscus extending to inferior articulating surface. Lateral meniscus is intact. 2. Low-grade MCL sprain. Anterior and posterior cruciate ligaments are intact. 3. Moderate grade sprain/partial-thickness tear involving lateral patellofemoral ligament near patella insertion. Quadriceps tendon and patellar tendon are intact . 4. Vium-ol-ccopnqia tricompartmental osteoarthritis and chondromalacia most notably in medial femoral tibial compartment. Small joint effusion. 5. Nonspecific mild subcutaneous soft tissue edema and small amount of fluid along anterior aspect of patella and patella tendon as above. Per Horacio Rojas M.D. on 04/26/2022 PT-OP-B Current Condition Start: 03/11/22 13:49 Freq: Status: Active Protocol: Document 03/11/22 09:45 DCW (Rec: 03/11/22 14:06 DCW [id number]) Current Condition History of Current Condition Onset Date 11/28/21 Current Complaints Right knee swelling, stiffness History of Current Condition Pt is a 61 year old female presenting to skilled therapy with a three month history of knee swelling and stiffness. Pt reports she tripped and fell on , and as she was holding things at the time, she was unable to catch herself, and fell onto her right knee with her full body weight. Pt reports that she had pretty significant pain for a few weeks, but it is now feeling a lot better. Pt reports that despite it feeling better, it is still swollen and so tight that she struggles to bend it. Pt went to the walk-in clinic one month ago, received x-rays, which were negative, and got referrals to PT and ortho. Admits she has not gone to ortho because they said they were surgeons, and I didn't think it was bad enough that I needed surgery, so I just didn't think I needed to go. Pt presents with a significant R limp due to walking with her knee in full extension at all times. Prior Treatments and Tests R knee x-ray: IMPRESSION: Small joint effusion. 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 Per: Bryce Julien M.D. on 02/09/2022 PT-OP-C Subjective Start: 03/11/22 13:49 Freq: Status: Active Protocol: Document 07/20/22 09:49 DCW (Rec: 07/20/22 10:29 DCW [id number]) OP-PT Subjective Patient Comments Patient Comments Pt noting knee is relatvely unchanged since last week. PT-OP-F Manual Assessment Start: 03/11/22 13:49 Freq: Status: Active Protocol: Document 03/11/22 09:45 DCW (Rec: 03/11/22 17:39 DCW [id number]) Manual Assessments Soft Tissue Assessment Soft Tissue Mobility Assessment Significant edema/effusion around right knee, however no notable tenderness or tone along soft tissue Joint Mobility Assessment Joint Mobility Assessment Minimal mobility of patella secondary to subpatellar edema . Severely limited right knee flexion both passively and actively PT-OP-G Mobility & Gait Start: 03/11/22 17:35 Freq: Status: Active Protocol: Document 03/11/22 09:45 DCW (Rec: 03/11/22 17:43 DCW [id number]) OP Gait Assessment Gait Gait Assistance Required: Independent Assistive Devices Assistive Device None Gait Deviations General Gait Pattern Antalgic Factors Limiting Gait Function Factors Limiting Gait Function Limited Range of Motion Comments Gait Comments Pt ambulates with her right knee in full extension, notes that it doesn't hurt, it just doesn't feel like it wants to bend. PT-OP-J Posture/Palpation/Skin Start: 03/11/22 13:49 Freq: Status: Active Protocol: Document 06/30/22 09:54 DCW (Rec: 06/30/22 10:01 DCW [id number]) Skin Assessment Circumference Measurement 10 cm superior to patella Location R leg Measurement (Centimeters) 61.2 Knee joint line Location R joint line Measurement (Centimeters) 52.5 Mid Calf Location R mid calf (9cm inferior patella) Measurement (Centimeters) 49.6 PT-OP-K Range of Motion Start: 03/11/22 13:49 Freq: Status: Active Protocol: Document 07/09/22 09:49 SP (Rec: 07/09/22 10:40 SP [id number]) Knee Goniometric Range of Motion Knee Right Knee ROM WFL No Patient Position Sitting Flexion Active (degrees) 70 Flexion Passive (degrees) 80 Extension Active (degrees) 0 Comments R relaxed extension 2deg. R knee AROM impproved 23deg, PROM 10 deg. PT-OP-L Special Tests Start: 03/11/22 13:49 Freq: Status: Active Protocol: Document 06/30/22 09:54 DCW (Rec: 06/30/22 09:59 DCW [id number]) Special Tests Knee Special Tests Varus- 0 Degrees Test Results Negative Valgus- 0 Degrees Test Results Negative Posterior Draw Test Results Negative Patella Tap Test Results Positive R Elle Test Test Results Negative Gerri's Test Results Negative Anterior Draw Test Results Negative PT-OP-M Strength Start: 03/11/22 13:49 Freq: Status: Active Protocol: Document 03/11/22 09:45 DCW (Rec: 03/11/22 17:39 DCW [id number]) Knee Strength Knee Manual Muscle Testing Right Comments Pt able to hold position against full force with no pain, but unable to move through full flexion PT-OP-Q Treatments Start: 03/11/22 13:49 Freq: Status: Active Protocol: Document 07/20/22 09:49 DCW (Rec: 07/20/22 10:29 DCW [id number]) Cardio Equipment Recumbent Bicycle Duration (Minutes) 7 Resistance 0 Seat Position 7 Other rocking, UE support posteriorly R knee for bend Gym Equipment Shuttle Recovery Bilateral Squats Resistance 75# Shuttle Recovery Platform Stable Reps/Time 5s hold x10 reps Therapeutic Exercises Supine Exercises Leg hang Supine Exercise Name quad stretch Side right Equipment Used lower leg off table. Reps/Minutes 1 min x2 Comments occasional knee extension ROM. Heel slides Supine Exercise Name Heel slides Side right Equipment Used Mat table Reps/Minutes x8 reps Comments AROM 81? Standing Exercises Step-ups Standing Exercise Name Step-ups/downs Side right Equipment Used 6 step Flexion stretch Standing Exercise Name Step flexion stretch Side right Equipment Used 12 step Manual Therapy Treatment Soft Tissue Mobilization quad Body Location R quad, HS, calf Mobilization Type Strumming,Sustained Pressure Intensity/Depth Superficial Body Position Supine Joint Mobilizations Patella Direction Lateral, inferior, superior Grade I Body Position Supine Tibiofemoral Joint R knee Direction P->A Grade IV Body Position Sitting PT-OP-T Assessment and Plan Start: 03/11/22 13:49 Freq: Status: Active Protocol: Document 07/20/22 09:49 DCW (Rec: 07/20/22 10:29 DCW [id number]) Physical Therapy Assessment Goals Two Impairment Pt severely limited R knee flexion limits ambulation ability Senior Living Goal (LTG) Pt to improve right knee flexion AROM by at least 40? from 55? to 95? in order to normalize gait pattern and reduce risk for hip and back pain dur to gait disturbance. 05/20/22: No signiifcant AROM 55 deg LTG Duration 08/31/22 Slow progression 06/30 One Impairment Pt does not have an appropriate home exercise program Short Term Goal (STG) Pt to be independent and compliant with an appropriate HEP STG Duration 07/31/22 Progress Towards Goals Progress Comments R knee PROM flexion measured at 84? today. Assessment Summary Assessment PROM a little stiffer today after working AROM, however pt AROM continues to improve with heel slides, increased from 70?->81?. Physical Therapy Plan Frequency and Duration Frequency of Treatment 1-2x/week Plan of Care Start Date 06/30/22 Plan of Care End Date 08/31/22 Therapeutic Interventions Therapeutic Interventions Aquatic Therapy,Gait Training, Home Exercise Program,Joint Mobilizations,Manual Therapy, Patient/Caregiver Education, Self-Care/Home Management,Soft Tissue Mobilization,Taping, Therapeutic Activities, Therapeutic Exercises Modalities Cold Pack/Ice Massage,Electric Stimulation,Hot Packs, Ultrasound Next Visit Focus/Plan Next Note Type Treatment Note Next Visit Plan POC: Continue to measure circumference edema every tx and progress ROM, proper gait phase patterning and self between txs, try hurdles when able. Ask if set up general practitioner and ortho for MRI results. POC: PROM, stretching, gait training
--- NOTE | 2022-07-23 10:30 | PT.OTN ---
Current Diagnoses Stiffness of right knee, not elsewhere classified (07/23/22) Unspecified injury of right lower leg, initial encounter (07/23/22) Unspecified injury of right lower leg, subsequent encounter (07/23/22) Physical Therapy Treatment Note PT-OP-A Visit Information Start: 03/11/22 13:49 Freq: Status: Active Protocol: Document 07/23/22 09:49 DCW (Rec: 07/23/22 10:30 DCW [id number]) Out-Patient Physical Therapy Visit Information Visit Information Visit Type Treatment Note Visit Start Time 09:49 Visit Stop Time 10:30 Total Visit Minutes 41 Visit Number 11 Number of BELLHOP CAPTAIN Visits 0 Evaluation Information Evaluation Date 03/11/22 Precautions Precautions IMPRESSION: 1. Subtle oblique tear involving posterior horn of medial meniscus extending to inferior articulating surface. Lateral meniscus is intact. 2. Low-grade MCL sprain. Anterior and posterior cruciate ligaments are intact. 3. Moderate grade sprain/partial-thickness tear involving lateral patellofemoral ligament near patella insertion. Quadriceps tendon and patellar tendon are intact . 4. [id number] tricompartmental osteoarthritis and chondromalacia most notably in medial femoral tibial compartment. Small joint effusion. 5. Nonspecific mild subcutaneous soft tissue edema and small amount of fluid along anterior aspect of patella and patella tendon as above. Per Horacio Rojas M.D. on 04/26/2022 PT-OP-B Current Condition Start: 03/11/22 13:49 Freq: Status: Active Protocol: Document 03/11/22 09:45 DCW (Rec: 03/11/22 14:06 DCW [id number]) Current Condition History of Current Condition Onset Date 11/28/21 Current Complaints Right knee swelling, stiffness History of Current Condition Pt is a 61 year old female presenting to skilled therapy with a three month history of knee swelling and stiffness. Pt reports she tripped and fell on , and as she was holding things at the time, she was unable to catch herself, and fell onto her right knee with her full body weight. Pt reports that she had pretty significant pain for a few weeks, but it is now feeling a lot better. Pt reports that despite it feeling better, it is still swollen and so tight that she struggles to bend it. Pt went to the walk-in clinic one month ago, received x-rays, which were negative, and got referrals to PT and ortho. Admits she has not gone to ortho because they said they were surgeons, and I didn't think it was bad enough that I needed surgery, so I just didn't think I needed to go. Pt presents with a significant R limp due to walking with her knee in full extension at all times. Prior Treatments and Tests R knee x-ray: IMPRESSION: Small joint effusion. 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 Per: Bryce Julien M.D. on 02/09/2022 PT-OP-C Subjective Start: 03/11/22 13:49 Freq: Status: Active Protocol: Document 07/23/22 09:49 DCW (Rec: 07/23/22 10:30 DCW [id number]) OP-PT Subjective Patient Comments Patient Comments Pretty good today, no big changes one way or the other. PT-OP-F Manual Assessment Start: 03/11/22 13:49 Freq: Status: Active Protocol: Document 03/11/22 09:45 DCW (Rec: 03/11/22 17:39 DCW [id number]) Manual Assessments Soft Tissue Assessment Soft Tissue Mobility Assessment Significant edema/effusion around right knee, however no notable tenderness or tone along soft tissue Joint Mobility Assessment Joint Mobility Assessment Minimal mobility of patella secondary to subpatellar edema . Severely limited right knee flexion both passively and actively PT-OP-G Mobility & Gait Start: 03/11/22 17:35 Freq: Status: Active Protocol: Document 03/11/22 09:45 DCW (Rec: 03/11/22 17:43 DCW [id number]) OP Gait Assessment Gait Gait Assistance Required: Independent Assistive Devices Assistive Device None Gait Deviations General Gait Pattern Antalgic Factors Limiting Gait Function Factors Limiting Gait Function Limited Range of Motion Comments Gait Comments Pt ambulates with her right knee in full extension, notes that it doesn't hurt, it just doesn't feel like it wants to bend. PT-OP-J Posture/Palpation/Skin Start: 03/11/22 13:49 Freq: Status: Active Protocol: Document 06/30/22 09:54 DCW (Rec: 06/30/22 10:01 DCW [id number]) Skin Assessment Circumference Measurement 10 cm superior to patella Location R leg Measurement (Centimeters) 61.2 Knee joint line Location R joint line Measurement (Centimeters) 52.5 Mid Calf Location R mid calf (9cm inferior patella) Measurement (Centimeters) 49.6 PT-OP-K Range of Motion Start: 03/11/22 13:49 Freq: Status: Active Protocol: Document 07/09/22 09:49 SP (Rec: 07/09/22 10:40 SP [id number]) Knee Goniometric Range of Motion Knee Right Knee ROM WFL No Patient Position Sitting Flexion Active (degrees) 70 Flexion Passive (degrees) 80 Extension Active (degrees) 0 Comments R relaxed extension 2deg. R knee AROM impproved 23deg, PROM 10 deg. PT-OP-L Special Tests Start: 03/11/22 13:49 Freq: Status: Active Protocol: Document 06/30/22 09:54 DCW (Rec: 06/30/22 09:59 DCW [id number]) Special Tests Knee Special Tests Varus- 0 Degrees Test Results Negative Valgus- 0 Degrees Test Results Negative Posterior Draw Test Results Negative Patella Tap Test Results Positive R Elle Test Test Results Negative Gerri's Test Results Negative Anterior Draw Test Results Negative PT-OP-M Strength Start: 03/11/22 13:49 Freq: Status: Active Protocol: Document 03/11/22 09:45 DCW (Rec: 03/11/22 17:39 DCW [id number]) Knee Strength Knee Manual Muscle Testing Right Comments Pt able to hold position against full force with no pain, but unable to move through full flexion PT-OP-Q Treatments Start: 03/11/22 13:49 Freq: Status: Active Protocol: Document 07/23/22 09:49 DCW (Rec: 07/23/22 10:30 DCW [id number]) Cardio Equipment Recumbent Bicycle Duration (Minutes) 7 Resistance 0 Seat Position 7 Other rocking, UE support posteriorly R knee for bend Gym Equipment Shuttle Recovery Bilateral Squats Resistance 75# Shuttle Recovery Platform Stable Reps/Time 5s hold x10 reps Therapeutic Exercises Standing Exercises TKE Standing Exercise Name TKE Side right Resistance Lv 3 Flexion stretch Standing Exercise Name Step flexion stretch Side right Equipment Used 12 step Manual Therapy Treatment Soft Tissue Mobilization quad Body Location R quad, HS, calf Mobilization Type Strumming,Sustained Pressure Intensity/Depth Superficial Body Position Supine Joint Mobilizations Patella Direction Lateral, inferior, superior Grade I Body Position Supine Tibiofemoral Joint R knee Direction P->A Grade IV Body Position Sitting PT-OP-T Assessment and Plan Start: 03/11/22 13:49 Freq: Status: Active Protocol: Document 07/23/22 09:49 DCW (Rec: 07/23/22 10:30 DCW [id number]) Physical Therapy Assessment Goals Two Impairment Pt severely limited R knee flexion limits ambulation ability Tube Cutter Operator Goal (LTG) Pt to improve right knee flexion AROM by at least 40? from 55? to 95? in order to normalize gait pattern and reduce risk for hip and back pain dur to gait disturbance. 05/20/22: No signiifcant AROM 55 deg LTG Duration 08/31/22 Slow progression 06/30 One Impairment Pt does not have an appropriate home exercise program Short Term Goal (STG) Pt to be independent and compliant with an appropriate HEP STG Duration 07/31/22 Assessment Summary Assessment Pt continues to present with fairly significant stiffness in her right knee, minimal pain except for during forced flexion. Continue skilled PT to help decrease overall inflammation and attempt to improve knee ROM. Physical Therapy Plan Frequency and Duration Frequency of Treatment 1-2x/week Plan of Care Start Date 06/30/22 Plan of Care End Date 08/31/22 Therapeutic Interventions Therapeutic Interventions Aquatic Therapy,Gait Training, Home Exercise Program,Joint Mobilizations,Manual Therapy, Patient/Caregiver Education, Self-Care/Home Management,Soft Tissue Mobilization,Taping, Therapeutic Activities, Therapeutic Exercises Modalities Cold Pack/Ice Massage,Electric Stimulation,Hot Packs, Ultrasound Next Visit Focus/Plan Next Note Type Treatment Note Next Visit Plan POC: Continue to measure circumference edema every tx and progress ROM, proper gait phase patterning and self between txs, try hurdles when able. Ask if set up genertal practioner and ortho for MRI results. POC: PROM, stretching, gait training
--- NOTE | 2022-07-26 10:35 | PT.OTN ---
Current Diagnoses Stiffness of right knee, not elsewhere classified (07/26/22) Unspecified injury of right lower leg, initial encounter (07/26/22) Unspecified injury of right lower leg, subsequent encounter (07/26/22) Physical Therapy Treatment Note PT-OP-A Visit Information Start: 03/11/22 13:49 Freq: Status: Active Protocol: Document 07/26/22 09:55 SP (Rec: 07/26/22 10:36 SP [id number]) Out-Patient Physical Therapy Visit Information Visit Information Visit Type Treatment Note Visit Start Time 09:55 Visit Stop Time 10:35 Total Visit Minutes 40 Visit Number 12 Number of SUPERVISOR [employer]REWORKS ASSEMBLY Visits 1 Evaluation Information Evaluation Date 03/11/22 Precautions Precautions IMPRESSION: 1. Subtle oblique tear involving posterior horn of medial meniscus extending to inferior articulating surface. Lateral meniscus is intact. 2. Low-grade MCL sprain. Anterior and posterior cruciate ligaments are intact. 3. Moderate grade sprain/partial-thickness tear involving lateral patellofemoral ligament near patella insertion. Quadriceps tendon and patellar tendon are intact . 4. Gysj-fu-dmpuyeko tricompartmental osteoarthritis and chondromalacia most notably in medial femoral tibial compartment. Small joint effusion. 5. Nonspecific mild subcutaneous soft tissue edema and small amount of fluid along anterior aspect of patella and patella tendon as above. Per Horacio Rojas M.D. on 04/26/2022 PT-OP-B Current Condition Start: 03/11/22 13:49 Freq: Status: Active Protocol: Document 03/11/22 09:45 DCW (Rec: 03/11/22 14:06 DCW [id number]) Current Condition History of Current Condition Onset Date 11/28/21 Current Complaints Right knee swelling, stiffness History of Current Condition Pt is a 61 year old female presenting to skilled therapy with a three month history of knee swelling and stiffness. Pt reports she tripped and fell on , and as she was holding things at the time, she was unable to catch herself, and fell onto her right knee with her full body weight. Pt reports that she had pretty significant pain for a few weeks, but it is now feeling a lot better. Pt reports that despite it feeling better, it is still swollen and so tight that she struggles to bend it. Pt went to the walk-in clinic one month ago, received x-rays, which were negative, and got referrals to PT and ortho. Admits she has not gone to ortho because they said they were surgeons, and I didn't think it was bad enough that I needed surgery, so I just didn't think I needed to go. Pt presents with a significant R limp due to walking with her knee in full extension at all times. Prior Treatments and Tests R knee x-ray: IMPRESSION: Small joint effusion. 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 Per: Bryce Julien M.D. on 02/09/2022 PT-OP-C Subjective Start: 03/11/22 13:49 Freq: Status: Active Protocol: Document 07/26/22 09:55 SP (Rec: 07/26/22 10:36 SP [id number]) OP-PT Subjective Patient Comments Patient Comments Pt states works really hard on her mechanics and still notices hip hiking walking and hears R foot scuffing floor. Pt states saw ortho and reports has OA in R knee and recommends to continuing to progress ROM and normalizing functional mobility. PT-OP-F Manual Assessment Start: 03/11/22 13:49 Freq: Status: Active Protocol: Document 03/11/22 09:45 DCW (Rec: 03/11/22 17:39 DCW [id number]) Manual Assessments Soft Tissue Assessment Soft Tissue Mobility Assessment Significant edema/effusion around right knee, however no notable tenderness or tone along soft tissue Joint Mobility Assessment Joint Mobility Assessment Minimal mobility of patella secondary to subpatellar edema . Severely limited right knee flexion both passively and actively PT-OP-G Mobility & Gait Start: 03/11/22 17:35 Freq: Status: Active Protocol: Document 03/11/22 09:45 DCW (Rec: 03/11/22 17:43 DCW [id number]) OP Gait Assessment Gait Gait Assistance Required: Independent Assistive Devices Assistive Device None Gait Deviations General Gait Pattern Antalgic Factors Limiting Gait Function Factors Limiting Gait Function Limited Range of Motion Comments Gait Comments Pt ambulates with her right knee in full extension, notes that it doesn't hurt, it just doesn't feel like it wants to bend. PT-OP-J Posture/Palpation/Skin Start: 03/11/22 13:49 Freq: Status: Active Protocol: Document 06/30/22 09:54 DCW (Rec: 06/30/22 10:01 DCW [id number]) Skin Assessment Circumference Measurement 10 cm superior to patella Location R leg Measurement (Centimeters) 61.2 Knee joint line Location R joint line Measurement (Centimeters) 52.5 Mid Calf Location R mid calf (9cm inferior patella) Measurement (Centimeters) 49.6 PT-OP-K Range of Motion Start: 03/11/22 13:49 Freq: Status: Active Protocol: Document 07/09/22 09:49 SP (Rec: 07/09/22 10:40 SP [id number]) Knee Goniometric Range of Motion Knee Right Knee ROM WFL No Patient Position Sitting Flexion Active (degrees) 70 Flexion Passive (degrees) 80 Extension Active (degrees) 0 Comments R relaxed extension 2deg. R knee AROM impproved 23deg, PROM 10 deg. PT-OP-L Special Tests Start: 03/11/22 13:49 Freq: Status: Active Protocol: Document 06/30/22 09:54 DCW (Rec: 06/30/22 09:59 DCW [id number]) Special Tests Knee Special Tests Varus- 0 Degrees Test Results Negative Valgus- 0 Degrees Test Results Negative Posterior Draw Test Results Negative Patella Tap Test Results Positive R Elle Test Test Results Negative Gerri's Test Results Negative Anterior Draw Test Results Negative PT-OP-M Strength Start: 03/11/22 13:49 Freq: Status: Active Protocol: Document 03/11/22 09:45 DCW (Rec: 03/11/22 17:39 DCW [id number]) Knee Strength Knee Manual Muscle Testing Right Comments Pt able to hold position against full force with no pain, but unable to move through full flexion PT-OP-Q Treatments Start: 03/11/22 13:49 Freq: Status: Active Protocol: Document 07/26/22 09:55 SP (Rec: 07/26/22 10:36 SP [id number]) Cardio Equipment Treadmill Duration (Minutes) 4 Speed 0.8 Incline 0 Other light contacgt 1 hand, cue R knee flexion/DF/ longer stride , short LLE stri Therapeutic Exercises Supine Exercises Leg hang Supine Exercise Name quad stretch Side right Equipment Used lower leg off table. Reps/Minutes 1 min x2 Comments occasional knee extension ROM. Sitting Exercises R knee flexion Sitting Exercise Name resisted HS curl Side right Resistance TB #2 Equipment Used mesh chair Reps/Minutes x15 Comments good slow form, painfree R k nee Standing Exercises lunge hip flexion stretch Standing Exercise Name lunge hip Resistance R>L Reps/Minutes 3 reps 30 Comments cued tall posture, neutral PPT alignment awareness calf stretch Standing Exercise Name added to HEP Side right TKE Standing Exercise Name TKE Side right Resistance Lv 3 Equipment Used contact chair Reps/Minutes x20 Flexion stretch Standing Exercise Name Step R knee flexion stretch Side right Equipment Used 6>12 step Reps/Minutes 3 min total Comments challenged ankle DF and knee flexion Gait Training Gait Activity gait phases/WB Description gait phase quality: fwd, bwd, side stepping Device Used 0 Level of Assistance S Surface firm carpet, mirror Distance/Duration [id number] Treatment Focus R knee and hip flexion, heel toe/DF, core fac, level pelvis midline posture Comments Pt decreased Hip hike on R LE, provided cues for R hip/knee flexion/DF during swing through to reduce hip hike, level shlds and pelvis. trunk rotation, arms swings better. Improves with reps Manual Therapy Treatment Soft Tissue Mobilization quad Body Location R quad supine, calf prone Mobilization Type Instrument Assisted,Myofascial Release,Rolling,Sustained Pressure,Other Intensity/Depth Moderate Comments manual and instruction self use rolling pin for decrease calf/quad tightness, verbalized understanding. Sensitive to pressure Calf/ Quad, better w/ Rolling pin and sustained pressure w /FM: APs Joint Mobilizations ankle Joint R talocrual P>A, calcaneal distraction med/lat, MTOF Comments Supine 1. talocrual A>P 2. calcaneal distraction med/ lat 3.MTP/ forefoot rotation Prone 4. talocrual P>A Improved DF ROM Patella Direction Lateral, inferior, superior Grade I Body Position Supine Tibiofemoral Joint R knee Direction P->A Grade II Body Position Sitting Comments much resistance today PT-OP-T Assessment and Plan Start: 03/11/22 13:49 Freq: Status: Active Protocol: Document 07/26/22 09:55 SP (Rec: 07/26/22 10:36 SP [id number]) Physical Therapy Assessment Goals Two Impairment Pt severely limited R knee flexion limits ambulation ability Infectious Disease Technician Goal (LTG) Pt to improve right knee flexion AROM by at least 40? from 55? to 95? in order to normalize gait pattern and reduce risk for hip and back pain dur to gait disturbance. 05/20/22: No signiifcant AROM 55 deg LTG Duration 08/31/22 Slow progression 06/30 One Impairment Pt does not have an appropriate home exercise program Short Term Goal (STG) Pt to be independent and compliant with an appropriate HEP STG Duration 07/31/22 Assessment Summary Assessment Pt improved gait phase mechanics post manual increase hip/knee flexion and DF ROM and use mirror self feedback with additional cues. TM for carryover to allow audible lakeisha for self corrections. Pt was able to recognize L LE decrease stride and hip hike with knee extension decreased DF but improved by end tx. Physical Therapy Plan Frequency and Duration Frequency of Treatment 1-2x/week Plan of Care Start Date 06/30/22 Plan of Care End Date 08/31/22 Therapeutic Interventions Therapeutic Interventions Aquatic Therapy,Gait Training, Home Exercise Program,Joint Mobilizations,Manual Therapy, Patient/Caregiver Education, Self-Care/Home Management,Soft Tissue Mobilization,Taping, Therapeutic Activities, Therapeutic Exercises Modalities Cold Pack/Ice Massage,Electric Stimulation,Hot Packs, Ultrasound Other Referrals/Consults Referrals/Consults Recommended Would strongly recommend advanced imaging prior to return to therapy Next Visit Focus/Plan Next Note Type Treatment Note Next Visit Plan REview HEP: added TB HS, TKE, ankle/knee mobility at step, gait mechanics. Add DF against TB. Add prone quad stretch w/ Strap POC: Continue proper gait phase patterning and self between txs, try hurdles when able. POC: PROM, stretching, gait training
--- NOTE | 2022-08-02 10:32 | PT.OTN ---
Current Diagnoses Stiffness of right knee, not elsewhere classified (08/02/22) Unspecified injury of right lower leg, initial encounter (08/02/22) Unspecified injury of right lower leg, subsequent encounter (08/02/22) Physical Therapy Treatment Note PT-OP-A Visit Information Start: 03/11/22 13:49 Freq: Status: Active Protocol: Document 08/02/22 09:52 SP (Rec: 08/02/22 10:42 SP [id number]) Out-Patient Physical Therapy Visit Information Visit Information Visit Type Treatment Note Visit Start Time 09:52 Visit Stop Time 10:32 Total Visit Minutes 40 Visit Number 13 Number of SCHOOL COMMISSIONER Visits 2 Evaluation Information Evaluation Date 03/11/22 Precautions Precautions IMPRESSION: 1. Subtle oblique tear involving posterior horn of medial meniscus extending to inferior articulating surface. Lateral meniscus is intact. 2. Low-grade MCL sprain. Anterior and posterior cruciate ligaments are intact. 3. Moderate grade sprain/partial-thickness tear involving lateral patellofemoral ligament near patella insertion. Quadriceps tendon and patellar tendon are intact . 4. Cwge-oy-[id number] tricompartmental osteoarthritis and chondromalacia most notably in medial femoral tibial compartment. Small joint effusion. 5. Nonspecific mild subcutaneous soft tissue edema and small amount of fluid along anterior aspect of patella and patella tendon as above. Per Horacio Rojas M.D. on 04/26/2022 PT-OP-B Current Condition Start: 03/11/22 13:49 Freq: Status: Active Protocol: Document 03/11/22 09:45 DCW (Rec: 03/11/22 14:06 DCW [id number]) Current Condition History of Current Condition Onset Date 11/28/21 Current Complaints Right knee swelling, stiffness History of Current Condition Pt is a 61 year old female presenting to skilled therapy with a three month history of knee swelling and stiffness. Pt reports she tripped and fell on , and as she was holding things at the time, she was unable to catch herself, and fell onto her right knee with her full body weight. Pt reports that she had pretty significant pain for a few weeks, but it is now feeling a lot better. Pt reports that despite it feeling better, it is still swollen and so tight that she struggles to bend it. Pt went to the walk-in clinic one month ago, received x-rays, which were negative, and got referrals to PT and ortho. Admits she has not gone to ortho because they said they were surgeons, and I didn't think it was bad enough that I needed surgery, so I just didn't think I needed to go. Pt presents with a significant R limp due to walking with her knee in full extension at all times. Prior Treatments and Tests R knee x-ray: IMPRESSION: Small joint effusion. 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 Per: Bryce Julien M.D. on 02/09/2022 PT-OP-C Subjective Start: 03/11/22 13:49 Freq: Status: Active Protocol: Document 08/02/22 09:52 SP (Rec: 08/02/22 10:42 SP [id number]) OP-PT Subjective Patient Comments Patient Comments Pt reports R knee stiffness. Wants to add more appts into September so doesn't have to wait and miss 2x/wk toward end Aug knowing we fill up appts far in advance. She feels does better results 2xwk. Pt hip hiking upon arrival, decreased R knee flexion and DF. PT-OP-F Manual Assessment Start: 03/11/22 13:49 Freq: Status: Active Protocol: Document 03/11/22 09:45 DCW (Rec: 03/11/22 17:39 DCW [id number]) Manual Assessments Soft Tissue Assessment Soft Tissue Mobility Assessment Significant edema/effusion around right knee, however no notable tenderness or tone along soft tissue Joint Mobility Assessment Joint Mobility Assessment Minimal mobility of patella secondary to subpatellar edema . Severely limited right knee flexion both passively and actively PT-OP-G Mobility & Gait Start: 03/11/22 17:35 Freq: Status: Active Protocol: Document 03/11/22 09:45 DCW (Rec: 03/11/22 17:43 DCW [id number]) OP Gait Assessment Gait Gait Assistance Required: Independent Assistive Devices Assistive Device None Gait Deviations General Gait Pattern Antalgic Factors Limiting Gait Function Factors Limiting Gait Function Limited Range of Motion Comments Gait Comments Pt ambulates with her right knee in full extension, notes that it doesn't hurt, it just doesn't feel like it wants to bend. PT-OP-J Posture/Palpation/Skin Start: 03/11/22 13:49 Freq: Status: Active Protocol: Document 06/30/22 09:54 DCW (Rec: 06/30/22 10:01 DCW [id number]) Skin Assessment Circumference Measurement 10 cm superior to patella Location R leg Measurement (Centimeters) 61.2 Knee joint line Location R joint line Measurement (Centimeters) 52.5 Mid Calf Location R mid calf (9cm inferior patella) Measurement (Centimeters) 49.6 PT-OP-K Range of Motion Start: 03/11/22 13:49 Freq: Status: Active Protocol: Document 07/09/22 09:49 SP (Rec: 07/09/22 10:40 SP [id number]) Knee Goniometric Range of Motion Knee Right Knee ROM WFL No Patient Position Sitting Flexion Active (degrees) 70 Flexion Passive (degrees) 80 Extension Active (degrees) 0 Comments R relaxed extension 2deg. R knee AROM impproved 23deg, PROM 10 deg. PT-OP-L Special Tests Start: 03/11/22 13:49 Freq: Status: Active Protocol: Document 06/30/22 09:54 DCW (Rec: 06/30/22 09:59 DCW [id number]) Special Tests Knee Special Tests Varus- 0 Degrees Test Results Negative Valgus- 0 Degrees Test Results Negative Posterior Draw Test Results Negative Patella Tap Test Results Positive R Elle Test Test Results Negative Gerri's Test Results Negative Anterior Draw Test Results Negative PT-OP-M Strength Start: 03/11/22 13:49 Freq: Status: Active Protocol: Document 03/11/22 09:45 DCW (Rec: 03/11/22 17:39 DCW [id number]) Knee Strength Knee Manual Muscle Testing Right Comments Pt able to hold position against full force with no pain, but unable to move through full flexion PT-OP-Q Treatments Start: 03/11/22 13:49 Freq: Status: Active Protocol: Document 08/02/22 09:52 SP (Rec: 08/02/22 10:42 SP [id number]) Therapeutic Exercises Sitting Exercises DF, EV Sitting Exercise Name reviewed HEP Side right Resistance TB #2 Reps/Minutes 2x10 each direction Comments cued lift as high as can pause hold then slow return to improve ft clear gt R knee flexion Side right Resistance AAROM Equipment Used mat table, R foot on 55cm tball Reps/Minutes x15 Comments good slow AAROM, cued level pelvis (tends lean R), contract relax ext Standing Exercises ankle, knee flexion mob Standing Exercise Name initiate on step Side right Equipment Used bottom step, HR support Reps/Minutes x10, pause 3SH Comments cued tall posture, no LB arch- improved DF, knee flexion calf stretch Standing Exercise Name reviewed HEP Side right Resistance contact BHR, bottom step Equipment Used off step or discussed can put rolled towel under forefoot contact counter Reps/Minutes 30 x2 Comments cued tall posture, knee straight tolerant range Step-ups Standing Exercise Name repeated step ups then over back w/ shan Side right Resistance AROM Equipment Used 6 step, //bars Reps/Minutes x10 Comments cued quad/ glut fac ascend UE support needed, slow descend Flexion stretch Standing Exercise Name Step R knee flexion and DF stretch Side right Equipment Used 6 step Reps/Minutes 1 min Comments challenged ankle DF and knee flexion, improved post manual Gait Training Gait Activity gait phases/WB Description gait phase quality: fwd, bwd, side stepping Device Used 0 Level of Assistance S Surface firm carpet, mirror Distance/Duration [id number] Treatment Focus R knee and hip flexion, heel toe/DF, core fac, level pelvis midline posture Comments Pt decreased Hip hike on R LE, provided cues for R hip/knee flexion/DF during swing through to reduce hip hike, level shlds and pelvis. trunk rotation, arms swings better. Improves with reps Manual Therapy Treatment Soft Tissue Mobilization quad Body Location R quad supine, calf & HS prone Mobilization Type Instrument Assisted,Myofascial Release,Rolling,Sustained Pressure,Other Intensity/Depth Moderate Comments manual and instruction self use rolling pin for decrease calf/quad tightness, verbalized understanding. Sensitive to pressure. also contract relax into knee flexion. Joint Mobilizations ankle Joint R talocrual AP Comments seated: R foot over tball 5cm talocrual A>P Tibiofemoral Joint R knee Direction AP Grade II Body Position Sitting Comments seated: R foot over tball 5cm talocrual A>P, contract quad ext AAROM into R knee flexion relaxed. Neuro Re-Education Treatment Balance Activities shan stepping Details 1 shan step over/ back: hip/ knee flexion, DF Equipment //bars, 4# leg wt>AROM Comments challenged decreased strength and AROM, compensated hip hike , circumduct so stopped. PT-OP-T Assessment and Plan Start: 03/11/22 13:49 Freq: Status: Active Protocol: Document 08/02/22 09:52 SP (Rec: 08/02/22 10:42 SP [id number]) Physical Therapy Assessment Goals Two Impairment Pt severely limited R knee flexion limits ambulation ability Wrestling Coach Goal (LTG) Pt to improve right knee flexion AROM by at least 40? from 55? to 95? in order to normalize gait pattern and reduce risk for hip and back pain dur to gait disturbance. 05/20/22: No signiifcant AROM 55 deg LTG Duration 08/31/22 Slow progression 06/30 One Impairment Pt does not have an appropriate home exercise program Short Term Goal (STG) Pt to be independent and compliant with an appropriate HEP STG Duration 07/31/22 Assessment Summary Assessment Pt improved level pelvis, R knee/hip flexion/ DF during gain in mirror end tx post manual and knee/ankle mobility on step. Pt requested more appts added into September therapy full schedule if wait to late doesn't get full 2/xwk and finds benefits of biweekly. Physical Therapy Plan Frequency and Duration Frequency of Treatment 1-2x/week Plan of Care Start Date 06/30/22 Plan of Care End Date 08/31/22 Therapeutic Interventions Therapeutic Interventions Aquatic Therapy,Gait Training, Home Exercise Program,Joint Mobilizations,Manual Therapy, Patient/Caregiver Education, Self-Care/Home Management,Soft Tissue Mobilization,Taping, Therapeutic Activities, Therapeutic Exercises Modalities Cold Pack/Ice Massage,Electric Stimulation,Hot Packs, Ultrasound Next Visit Focus/Plan Next Note Type Treatment Note Next Visit Plan Recheck R knee AROM pre/ post tx. REview HEP: TB HS, TKE, ankle/ knee mobility at step, gait mechanics. Add DF against TB. Add prone quad stretch w/ Strap POC: Continue proper gait phase patterning and self between txs, try hurdles when able. POC: PROM, stretching, gait training
--- NOTE | 2022-08-09 11:19 | PT.OTN ---
Current Diagnoses Stiffness of right knee, not elsewhere classified (08/09/22) Unspecified injury of right lower leg, initial encounter (08/09/22) Unspecified injury of right lower leg, subsequent encounter (08/09/22) Physical Therapy Treatment Note PT-OP-A Visit Information Start: 03/11/22 13:49 Freq: Status: Active Protocol: Document 08/09/22 10:41 SP (Rec: 08/09/22 11:38 SP [id number]) Out-Patient Physical Therapy Visit Information Visit Information Visit Type Treatment Note Visit Start Time 10:41 Visit Stop Time 11:19 Total Visit Minutes 38 Visit Number 14 Number of STAGE DIRECTOR Visits 3 Evaluation Information Evaluation Date 03/11/22 Precautions Precautions IMPRESSION: 1. Subtle oblique tear involving posterior horn of medial meniscus extending to inferior articulating surface. Lateral meniscus is intact. 2. Low-grade MCL sprain. Anterior and posterior cruciate ligaments are intact. 3. Moderate grade sprain/partial-thickness tear involving lateral patellofemoral ligament near patella insertion. Quadriceps tendon and patellar tendon are intact . 4. Pzno-[id number] tricompartmental osteoarthritis and chondromalacia most notably in medial femoral tibial compartment. Small joint effusion. 5. Nonspecific mild subcutaneous soft tissue edema and small amount of fluid along anterior aspect of patella and patella tendon as above. Per Horacio Rojas M.D. on 04/26/2022 PT-OP-B Current Condition Start: 03/11/22 13:49 Freq: Status: Active Protocol: Document 03/11/22 09:45 DCW (Rec: 03/11/22 14:06 DCW [id number]) Current Condition History of Current Condition Onset Date 11/28/21 Current Complaints Right knee swelling, stiffness History of Current Condition Pt is a 61 year old female presenting to skilled therapy with a three month history of knee swelling and stiffness. Pt reports she tripped and fell on , and as she was holding things at the time, she was unable to catch herself, and fell onto her right knee with her full body weight. Pt reports that she had pretty significant pain for a few weeks, but it is now feeling a lot better. Pt reports that despite it feeling better, it is still swollen and so tight that she struggles to bend it. Pt went to the walk-in clinic one month ago, received x-rays, which were negative, and got referrals to PT and ortho. Admits she has not gone to ortho because they said they were surgeons, and I didn't think it was bad enough that I needed surgery, so I just didn't think I needed to go. Pt presents with a significant R limp due to walking with her knee in full extension at all times. Prior Treatments and Tests R knee x-ray: IMPRESSION: Small joint effusion. 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 Per: Bryce Julien M.D. on 02/09/2022 PT-OP-C Subjective Start: 03/11/22 13:49 Freq: Status: Active Protocol: Document 08/09/22 10:41 SP (Rec: 08/09/22 11:38 SP [id number]) OP-PT Subjective Patient Comments Patient Comments Pt reports really focusing on quality gait. Wants to know if can suggest service dog trainer/massage therapist to assist more days outside PT. PT-OP-F Manual Assessment Start: 03/11/22 13:49 Freq: Status: Active Protocol: Document 03/11/22 09:45 DCW (Rec: 03/11/22 17:39 DCW [id number]) Manual Assessments Soft Tissue Assessment Soft Tissue Mobility Assessment Significant edema/effusion around right knee, however no notable tenderness or tone along soft tissue Joint Mobility Assessment Joint Mobility Assessment Minimal mobility of patella secondary to subpatellar edema . Severely limited right knee flexion both passively and actively PT-OP-G Mobility & Gait Start: 03/11/22 17:35 Freq: Status: Active Protocol: Document 03/11/22 09:45 DCW (Rec: 03/11/22 17:43 DCW [id number]) OP Gait Assessment Gait Gait Assistance Required: Independent Assistive Devices Assistive Device None Gait Deviations General Gait Pattern Antalgic Factors Limiting Gait Function Factors Limiting Gait Function Limited Range of Motion Comments Gait Comments Pt ambulates with her right knee in full extension, notes that it doesn't hurt, it just doesn't feel like it wants to bend. PT-OP-J Posture/Palpation/Skin Start: 03/11/22 13:49 Freq: Status: Active Protocol: Document 06/30/22 09:54 DCW (Rec: 06/30/22 10:01 DCW [id number]) Skin Assessment Circumference Measurement 10 cm superior to patella Location R leg Measurement (Centimeters) 61.2 Knee joint line Location R joint line Measurement (Centimeters) 52.5 Mid Calf Location R mid calf (9cm inferior patella) Measurement (Centimeters) 49.6 PT-OP-K Range of Motion Start: 03/11/22 13:49 Freq: Status: Active Protocol: Document 07/09/22 09:49 SP (Rec: 07/09/22 10:40 SP [id number]) Knee Goniometric Range of Motion Knee Right Knee ROM WFL No Patient Position Sitting Flexion Active (degrees) 70 Flexion Passive (degrees) 80 Extension Active (degrees) 0 Comments R relaxed extension 2deg. R knee AROM impproved 23deg, PROM 10 deg. PT-OP-L Special Tests Start: 03/11/22 13:49 Freq: Status: Active Protocol: Document 06/30/22 09:54 DCW (Rec: 06/30/22 09:59 DCW [id number]) Special Tests Knee Special Tests Varus- 0 Degrees Test Results Negative Valgus- 0 Degrees Test Results Negative Posterior Draw Test Results Negative Patella Tap Test Results Positive R Elle Test Test Results Negative Gerri's Test Results Negative Anterior Draw Test Results Negative PT-OP-M Strength Start: 03/11/22 13:49 Freq: Status: Active Protocol: Document 03/11/22 09:45 DCW (Rec: 03/11/22 17:39 DCW [id number]) Knee Strength Knee Manual Muscle Testing Right Comments Pt able to hold position against full force with no pain, but unable to move through full flexion PT-OP-Q Treatments Start: 03/11/22 13:49 Freq: Status: Active Protocol: Document 08/09/22 10:41 SP (Rec: 08/09/22 11:38 SP [id number]) Cardio Equipment Recumbent Elliptical (Biodex) Duration (Minutes) 6 Resistance 0 Seat Position forgot log- slower moved seat fwd Other post manual, UE assist LE Gym Equipment Shuttle Recovery Bilateral Squats Details 95 deg Resistance 75# (1 new band) Shuttle Recovery Platform Stable Reps/Time 2-5s hold x10 reps Therapeutic Exercises Prone Exercises Flexion stretch Prone Exercise Name Prone knee flexion stretch /c strap Side right Resistance AAROM Comments limited flexion, alot tension reported superior patella Sitting Exercises STS Equipment Used mesh chair, requires UE support. Reps/Minutes x3 reps Comments trialed no UE and hard descend due to lack of ROM Standing Exercises ankle, knee flexion mob Standing Exercise Name duplicate Flexion stretch Standing Exercise Name Step R knee flexion and DF stretch Side right Equipment Used 6 step and BOSU, rail support Reps/Minutes 1 min Comments challenged ankle DF and knee flexion, improved post manual Gait Training Gait Activity gait phases/WB Description gait phase quality: fwd, bwd, side stepping Device Used 0 Level of Assistance S Surface firm carpet, mirror Distance/Duration 15 ft x3 laps each directions Treatment Focus R knee and hip flexion, heel toe/DF, core fac, level pelvis midline posture Comments cued arms across chest decreased Hip hike on R LE, provided cues for R hip/knee flexion/DF during swing through to reduce hip hike, level shlds and pelvis. trunk rotation, arms swings better. Improves with reps Manual Therapy Treatment Soft Tissue Mobilization quad Body Location R quad supine, calf & HS prone Mobilization Type Instrument Assisted,Myofascial Release,Rolling,Sustained Pressure,Other Intensity/Depth Moderate Comments manual Joint Mobilizations ankle Joint R talocrual AP Comments during ankle mobility on step/ bosu Patella Direction Lateral, inferior, superior Grade I Body Position Supine Tibiofemoral Joint R knee Direction AP Grade II Body Position Sitting Comments on biodex PT-OP-T Assessment and Plan Start: 03/11/22 13:49 Freq: Status: Active Protocol: Document 08/09/22 10:41 SP (Rec: 08/09/22 11:38 SP [id number]) Physical Therapy Assessment Goals Two Impairment Pt severely limited R knee flexion limits ambulation ability Fertilizer Loader Goal (LTG) Pt to improve right knee flexion AROM by at least 40? from 55? to 95? in order to normalize gait pattern and reduce risk for hip and back pain dur to gait disturbance. 05/20/22: No signiifcant AROM 55 deg LTG Duration 08/31/22 Slow progression 06/30 One Impairment Pt does not have an appropriate home exercise program Short Term Goal (STG) Pt to be independent and compliant with an appropriate HEP STG Duration 07/31/22 Assessment Summary Assessment Pt improved R knee ROM post manual, ther ex and gait carryover in mirror ableto walk with very minimal upper body compensations. Suggested walking in pool. Physical Therapy Plan Frequency and Duration Frequency of Treatment 1-2x/week Plan of Care Start Date 06/30/22 Plan of Care End Date 08/31/22 Therapeutic Interventions Therapeutic Interventions Aquatic Therapy,Gait Training, Home Exercise Program,Joint Mobilizations,Manual Therapy, Patient/Caregiver Education, Self-Care/Home Management,Soft Tissue Mobilization,Taping, Therapeutic Activities, Therapeutic Exercises Modalities Cold Pack/Ice Massage,Electric Stimulation,Hot Packs, Ultrasound Next Visit Focus/Plan Next Note Type Treatment Note Next Visit Plan Recheck R knee AROM pre/ post tx. continue functional ROM and activities. REview HEP: TB HS, TKE eccentric flexion, ankle/knee mobility at step, gait mechanics. Add DF against TB. Add prone quad stretch w/ Strap POC: Continue proper gait phase patterning and self between txs, try hurdles when able. POC: PROM, stretching, gait training
--- NOTE | 2022-08-11 12:44 | PT.OTN ---
Current Diagnoses Stiffness of right knee, not elsewhere classified (08/11/22) Unspecified injury of right lower leg, initial encounter (08/11/22) Unspecified injury of right lower leg, subsequent encounter (08/11/22) Physical Therapy Treatment Note PT-OP-A Visit Information Start: 03/11/22 13:49 Freq: Status: Active Protocol: Document 08/11/22 12:03 DCW (Rec: 08/11/22 12:43 DCW [id number]) Out-Patient Physical Therapy Visit Information Visit Information Visit Type Treatment Note Visit Start Time 12:03 Visit Stop Time 12:45 Total Visit Minutes 42 Visit Number 15 Number of PILE OPERATOR Visits 0 Evaluation Information Evaluation Date 03/11/22 Precautions Precautions IMPRESSION: 1. Subtle oblique tear involving posterior horn of medial meniscus extending to inferior articulating surface. Lateral meniscus is intact. 2. Low-grade MCL sprain. Anterior and posterior cruciate ligaments are intact. 3. Moderate grade sprain/partial-thickness tear involving lateral patellofemoral ligament near patella insertion. Quadriceps tendon and patellar tendon are intact . 4. [id number] tricompartmental osteoarthritis and chondromalacia most notably in medial femoral tibial compartment. Small joint effusion. 5. Nonspecific mild subcutaneous soft tissue edema and small amount of fluid along anterior aspect of patella and patella tendon as above. Per Horacio Rojas M.D. on 04/26/2022 PT-OP-B Current Condition Start: 03/11/22 13:49 Freq: Status: Active Protocol: Document 03/11/22 09:45 DCW (Rec: 03/11/22 14:06 DCW [id number]) Current Condition History of Current Condition Onset Date 11/28/21 Current Complaints Right knee swelling, stiffness History of Current Condition Pt is a 61 year old female presenting to skilled therapy with a three month history of knee swelling and stiffness. Pt reports she tripped and fell on , and as she was holding things at the time, she was unable to catch herself, and fell onto her right knee with her full body weight. Pt reports that she had pretty significant pain for a few weeks, but it is now feeling a lot better. Pt reports that despite it feeling better, it is still swollen and so tight that she struggles to bend it. Pt went to the walk-in clinic one month ago, received x-rays, which were negative, and got referrals to PT and ortho. Admits she has not gone to ortho because they said they were surgeons, and I didn't think it was bad enough that I needed surgery, so I just didn't think I needed to go. Pt presents with a significant R limp due to walking with her knee in full extension at all times. Prior Treatments and Tests R knee x-ray: IMPRESSION: Small joint effusion. 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 Per: Bryce Julien M.D. on 02/09/2022 PT-OP-C Subjective Start: 03/11/22 13:49 Freq: Status: Active Protocol: Document 08/11/22 12:03 DCW (Rec: 08/11/22 12:43 DCW [id number]) OP-PT Subjective Patient Comments Patient Comments It's stiffer today than it has been in weeks. Reports there was a weird feeling in her knee last night that woke her up, unable to explain further. PT-OP-F Manual Assessment Start: 03/11/22 13:49 Freq: Status: Active Protocol: Document 03/11/22 09:45 DCW (Rec: 03/11/22 17:39 DCW [id number]) Manual Assessments Soft Tissue Assessment Soft Tissue Mobility Assessment Significant edema/effusion around right knee, however no notable tenderness or tone along soft tissue Joint Mobility Assessment Joint Mobility Assessment Minimal mobility of patella secondary to subpatellar edema . Severely limited right knee flexion both passively and actively PT-OP-G Mobility & Gait Start: 03/11/22 17:35 Freq: Status: Active Protocol: Document 03/11/22 09:45 DCW (Rec: 03/11/22 17:43 DCW [id number]) OP Gait Assessment Gait Gait Assistance Required: Independent Assistive Devices Assistive Device None Gait Deviations General Gait Pattern Antalgic Factors Limiting Gait Function Factors Limiting Gait Function Limited Range of Motion Comments Gait Comments Pt ambulates with her right knee in full extension, notes that it doesn't hurt, it just doesn't feel like it wants to bend. PT-OP-J Posture/Palpation/Skin Start: 03/11/22 13:49 Freq: Status: Active Protocol: Document 06/30/22 09:54 DCW (Rec: 06/30/22 10:01 DCW [id number]) Skin Assessment Circumference Measurement 10 cm superior to patella Location R leg Measurement (Centimeters) 61.2 Knee joint line Location R joint line Measurement (Centimeters) 52.5 Mid Calf Location R mid calf (9cm inferior patella) Measurement (Centimeters) 49.6 PT-OP-K Range of Motion Start: 03/11/22 13:49 Freq: Status: Active Protocol: Document 07/09/22 09:49 SP (Rec: 07/09/22 10:40 SP [id number]) Knee Goniometric Range of Motion Knee Right Knee ROM WFL No Patient Position Sitting Flexion Active (degrees) 70 Flexion Passive (degrees) 80 Extension Active (degrees) 0 Comments R relaxed extension 2deg. R knee AROM impproved 23deg, PROM 10 deg. PT-OP-L Special Tests Start: 03/11/22 13:49 Freq: Status: Active Protocol: Document 06/30/22 09:54 DCW (Rec: 06/30/22 09:59 DCW [id number]) Special Tests Knee Special Tests Varus- 0 Degrees Test Results Negative Valgus- 0 Degrees Test Results Negative Posterior Draw Test Results Negative Patella Tap Test Results Positive R Elle Test Test Results Negative Gerri's Test Results Negative Anterior Draw Test Results Negative PT-OP-M Strength Start: 03/11/22 13:49 Freq: Status: Active Protocol: Document 03/11/22 09:45 DCW (Rec: 03/11/22 17:39 DCW [id number]) Knee Strength Knee Manual Muscle Testing Right Comments Pt able to hold position against full force with no pain, but unable to move through full flexion PT-OP-Q Treatments Start: 03/11/22 13:49 Freq: Status: Active Protocol: Document 08/11/22 12:03 DCW (Rec: 08/11/22 12:43 DCW [id number]) Cardio Equipment Recumbent Bicycle Duration (Minutes) 6 Resistance 0 Seat Position 7 Other rocking, UE support posteriorly R knee for bend Gym Equipment Shuttle Recovery Bilateral Squats Details 91 deg Resistance 75# (1 new band) Shuttle Recovery Platform Stable Reps/Time 2-5s hold x10 reps Therapeutic Exercises Standing Exercises Flexion stretch Standing Exercise Name Step R knee flexion and DF stretch Side right Equipment Used 6 step and BOSU, rail support Reps/Minutes 1 min Comments challenged ankle DF and knee flexion, improved post manual Gait Training Gait Activity gait phases/WB Description gait phase quality: fwd, bwd, side stepping Device Used 0 Level of Assistance S Surface firm carpet, mirror Distance/Duration 15 ft x3 laps each directions Treatment Focus R knee and hip flexion, heel toe/DF, core fac, level pelvis midline posture Manual Therapy Treatment Joint Mobilizations Patella Direction Lateral, inferior, superior Grade I Body Position Supine Tibiofemoral Joint R knee Direction AP Grade II Body Position Sitting PT-OP-T Assessment and Plan Start: 03/11/22 13:49 Freq: Status: Active Protocol: Document 08/11/22 12:03 DCW (Rec: 08/11/22 12:43 DCW [id number]) Physical Therapy Assessment Impairments Impairments Edema,Functional Activities, Functional Mobility,Gait,ROM Goals Two Impairment Pt severely limited R knee flexion limits ambulation ability Fdc Goal (LTG) Pt to improve right knee flexion AROM by at least 40? from 55? to 95? in order to normalize gait pattern and reduce risk for hip and back pain dur to gait disturbance. 05/20/22: No signiifcant AROM 55 deg LTG Duration 08/31/22 Slow progression 06/30 One Impairment Pt does not have an appropriate home exercise program Short Term Goal (STG) Pt to be independent and compliant with an appropriate HEP STG Duration 07/31/22 Assessment Summary Assessment Pt walked into clinic today with a decreased quality of gait compared to Tuesday, noting increased stiffness. After performing activities to improve mobility, pt was able to return to prior gait quality with minimal instruction. Physical Therapy Plan Frequency and Duration Frequency of Treatment 1-2x/week Plan of Care Start Date 06/30/22 Plan of Care End Date 08/31/22 Therapeutic Interventions Therapeutic Interventions Aquatic Therapy,Gait Training, Home Exercise Program,Joint Mobilizations,Manual Therapy, Patient/Caregiver Education, Self-Care/Home Management,Soft Tissue Mobilization,Taping, Therapeutic Activities, Therapeutic Exercises Modalities Cold Pack/Ice Massage,Electric Stimulation,Hot Packs, Ultrasound Next Visit Focus/Plan Next Note Type Treatment Note Next Visit Plan Recheck R knee AROM pre/ post tx. continue functional ROM and activities. REview HEP: TB HS, TKE eccentric flexion, ankle/knee mobility at step, gait mechanics. Add DF against TB. Add prone quad stretch w/ Strap POC: Continue proper gait phase patterning and self between txs, try hurdles when able. POC: PROM, stretching, gait training
--- NOTE | 2022-08-18 15:15 | PT.OTN ---
Current Diagnoses Stiffness of right knee, not elsewhere classified (08/18/22) Unspecified injury of right lower leg, initial encounter (08/18/22) Unspecified injury of right lower leg, subsequent encounter (08/18/22) Physical Therapy Treatment Note PT-OP-A Visit Information Start: 03/11/22 13:49 Freq: Status: Active Protocol: Document 08/18/22 14:33 DCW (Rec: 08/18/22 15:15 DCW [id number]) Out-Patient Physical Therapy Visit Information Visit Information Visit Type Treatment Note Visit Start Time 14:33 Visit Stop Time 15:15 Total Visit Minutes 42 Visit Number 16 Number of SHOE SALESMAN Visits 0 Evaluation Information Evaluation Date 03/11/22 Precautions Precautions IMPRESSION: 1. Subtle oblique tear involving posterior horn of medial meniscus extending to inferior articulating surface. Lateral meniscus is intact. 2. Low-grade MCL sprain. Anterior and posterior cruciate ligaments are intact. 3. Moderate grade sprain/partial-thickness tear involving lateral patellofemoral ligament near patella insertion. Quadriceps tendon and patellar tendon are intact . 4. [id number] tricompartmental osteoarthritis and chondromalacia most notably in medial femoral tibial compartment. Small joint effusion. 5. Nonspecific mild subcutaneous soft tissue edema and small amount of fluid along anterior aspect of patella and patella tendon as above. Per Horacio Rojas M.D. on 04/26/2022 PT-OP-B Current Condition Start: 03/11/22 13:49 Freq: Status: Active Protocol: Document 03/11/22 09:45 DCW (Rec: 03/11/22 14:06 DCW [id number]) Current Condition History of Current Condition Onset Date 11/28/21 Current Complaints Right knee swelling, stiffness History of Current Condition Pt is a 61 year old female presenting to skilled therapy with a three month history of knee swelling and stiffness. Pt reports she tripped and fell on , and as she was holding things at the time, she was unable to catch herself, and fell onto her right knee with her full body weight. Pt reports that she had pretty significant pain for a few weeks, but it is now feeling a lot better. Pt reports that despite it feeling better, it is still swollen and so tight that she struggles to bend it. Pt went to the walk-in clinic one month ago, received x-rays, which were negative, and got referrals to PT and ortho. Admits she has not gone to ortho because they said they were surgeons, and I didn't think it was bad enough that I needed surgery, so I just didn't think I needed to go. Pt presents with a significant R limp due to walking with her knee in full extension at all times. Prior Treatments and Tests R knee x-ray: IMPRESSION: Small joint effusion. 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 Per: Bryce Julien M.D. on 02/09/2022 PT-OP-C Subjective Start: 03/11/22 13:49 Freq: Status: Active Protocol: Document 08/18/22 14:33 DCW (Rec: 08/18/22 15:15 DCW [id number]) OP-PT Subjective Patient Comments Patient Comments It's better than last time, but still pretty stiff across the top. PT-OP-F Manual Assessment Start: 03/11/22 13:49 Freq: Status: Active Protocol: Document 03/11/22 09:45 DCW (Rec: 03/11/22 17:39 DCW [id number]) Manual Assessments Soft Tissue Assessment Soft Tissue Mobility Assessment Significant edema/effusion around right knee, however no notable tenderness or tone along soft tissue Joint Mobility Assessment Joint Mobility Assessment Minimal mobility of patella secondary to subpatellar edema . Severely limited right knee flexion both passively and actively PT-OP-G Mobility & Gait Start: 03/11/22 17:35 Freq: Status: Active Protocol: Document 03/11/22 09:45 DCW (Rec: 03/11/22 17:43 DCW [id number]) OP Gait Assessment Gait Gait Assistance Required: Independent Assistive Devices Assistive Device None Gait Deviations General Gait Pattern Antalgic Factors Limiting Gait Function Factors Limiting Gait Function Limited Range of Motion Comments Gait Comments Pt ambulates with her right knee in full extension, notes that it doesn't hurt, it just doesn't feel like it wants to bend. PT-OP-J Posture/Palpation/Skin Start: 03/11/22 13:49 Freq: Status: Active Protocol: Document 06/30/22 09:54 DCW (Rec: 06/30/22 10:01 DCW [id number]) Skin Assessment Circumference Measurement 10 cm superior to patella Location R leg Measurement (Centimeters) 61.2 Knee joint line Location R joint line Measurement (Centimeters) 52.5 Mid Calf Location R mid calf (9cm inferior patella) Measurement (Centimeters) 49.6 PT-OP-K Range of Motion Start: 03/11/22 13:49 Freq: Status: Active Protocol: Document 07/09/22 09:49 SP (Rec: 07/09/22 10:40 SP [id number]) Knee Goniometric Range of Motion Knee Right Knee ROM WFL No Patient Position Sitting Flexion Active (degrees) 70 Flexion Passive (degrees) 80 Extension Active (degrees) 0 Comments R relaxed extension 2deg. R knee AROM impproved 23deg, PROM 10 deg. PT-OP-L Special Tests Start: 03/11/22 13:49 Freq: Status: Active Protocol: Document 06/30/22 09:54 DCW (Rec: 06/30/22 09:59 DCW [id number]) Special Tests Knee Special Tests Varus- 0 Degrees Test Results Negative Valgus- 0 Degrees Test Results Negative Posterior Draw Test Results Negative Patella Tap Test Results Positive R Elle Test Test Results Negative Gerri's Test Results Negative Anterior Draw Test Results Negative PT-OP-M Strength Start: 03/11/22 13:49 Freq: Status: Active Protocol: Document 03/11/22 09:45 DCW (Rec: 03/11/22 17:39 DCW [id number]) Knee Strength Knee Manual Muscle Testing Right Comments Pt able to hold position against full force with no pain, but unable to move through full flexion PT-OP-Q Treatments Start: 03/11/22 13:49 Freq: Status: Active Protocol: Document 08/18/22 14:33 DCW (Rec: 08/18/22 15:15 DCW [id number]) Cardio Equipment Recumbent Bicycle Duration (Minutes) 6 Resistance 0 Seat Position 7 Other rocking, UE support posteriorly R knee for bend Gym Equipment Shuttle Recovery Bilateral Squats Details 91 deg Resistance 75# (1 new band) Shuttle Recovery Platform Stable Reps/Time 2-5s hold x10 reps Therapeutic Exercises Standing Exercises Step-ups Standing Exercise Name Step-ups Side right Resistance AROM Equipment Used 6 step Reps/Minutes x10 Comments cued quad/ glut fac ascend UE support needed, slow descend Flexion stretch Standing Exercise Name Step R knee flexion and DF stretch Side right Equipment Used 6 step and BOSU, rail support Reps/Minutes 1 min Comments challenged ankle DF and knee flexion, improved post manual Manual Therapy Treatment Joint Mobilizations Patella Direction Lateral, inferior, superior Grade I Body Position Supine Tibiofemoral Joint R knee Direction AP Grade II Body Position Sitting PT-OP-T Assessment and Plan Start: 03/11/22 13:49 Freq: Status: Active Protocol: Document 08/18/22 14:33 DCW (Rec: 08/18/22 15:15 DCW [id number]) Physical Therapy Assessment Impairments Impairments Edema,Functional Activities, Functional Mobility,Gait,ROM Goals Two Impairment Pt severely limited R knee flexion limits ambulation ability Retirement Goal (LTG) Pt to improve right knee flexion AROM by at least 40? from 55? to 95? in order to normalize gait pattern and reduce risk for hip and back pain dur to gait disturbance. 05/20/22: No signiifcant AROM 55 deg LTG Duration 08/31/22 Slow progression 06/30 One Impairment Pt does not have an appropriate home exercise program Short Term Goal (STG) Pt to be independent and compliant with an appropriate HEP STG Duration 07/31/22 Assessment Summary Assessment Pt gait improved this week, not nearly as stiff today as last week, still feeling incredibly restricted with ROM . Physical Therapy Plan Frequency and Duration Frequency of Treatment 1-2x/week Plan of Care Start Date 06/30/22 Plan of Care End Date 08/31/22 Therapeutic Interventions Therapeutic Interventions Aquatic Therapy,Gait Training, Home Exercise Program,Joint Mobilizations,Manual Therapy, Patient/Caregiver Education, Self-Care/Home Management,Soft Tissue Mobilization,Taping, Therapeutic Activities, Therapeutic Exercises Modalities Cold Pack/Ice Massage,Electric Stimulation,Hot Packs, Ultrasound Next Visit Focus/Plan Next Note Type Treatment Note Next Visit Plan Recheck R knee AROM pre/ post tx. continue functional ROM and activities. Review HEP: TB HS, TKE eccentric flexion, ankle/knee mobility at step, gait mechanics. Add DF against TB. Add prone quad stretch w/ Strap POC: Continue proper gait phase patterning and self between txs, try hurdles when able. POC: PROM, stretching, gait training
--- NOTE | 2022-08-18 15:16 | PT.OTN ---
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 Subtle oblique tear involving posterior horn of medial meniscus extending to inferior articulating surface. Lateral meniscus is intact. 2. Low-grade MCL sprain. Anterior and posterior cruciate ligaments are intact. 3. Moderate grade sprain/partial-thickness tear involving lateral patellofemoral ligament near patella insertion. Quadriceps tendon and patellar tendon are intact . 4. Npnk-wi-jlegjuej tricompartmental osteoarthritis and chondromalacia most notably in medial femoral tibial compartment. Small joint effusion. 5. Nonspecific mild subcutaneous soft tissue edema and small amount of fluid along anterior aspect of patella and patella tendon as above. Per Horacio Rojas M.D. on 04/26/2022 PT-OP-B Current Condition Start: 03/11/22 13:49 Freq: Status: Active Protocol: Document 03/11/22 09:45 DCW (Rec: 03/11/22 14:06 DCW [id number]) Current Condition History of Current Condition Onset Date 11/28/21 Current Complaints Right knee swelling, stiffness History of Current Condition Pt is a 61 year old female presenting to skilled therapy with a three month history of knee swelling and stiffness. Pt reports she tripped and fell on , and as she was holding things at the time, she was unable to catch herself, and fell onto her right knee with her full body weight. Pt reports that she had pretty significant pain for a few weeks, but it is now feeling a lot better. Pt reports that despite it feeling better, it is still swollen and so tight that she struggles to bend it. Pt went to the walk-in clinic one month ago, received x-rays, which were negative, and got referrals to PT and ortho. Admits she has not gone to ortho because they said they were surgeons, and I didn't think it was bad enough that I needed surgery, so I just didn't think I needed to go. Pt presents with a significant R limp due to walking with her knee in full extension at all times. Prior Treatments and Tests R knee x-ray: IMPRESSION: Small joint effusion. 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 Per: Bryce Julien M.D. on 02/09/2022 PT-OP-C Subjective Start: 03/11/22 13:49 Freq: Status: Active Protocol: Document 08/18/22 14:33 DCW (Rec: 08/18/22 15:15 DCW [id number]) OP-PT Subjective Patient Comments Patient Comments It's better than last time, but still pretty stiff across the top. PT-OP-F Manual Assessment Start: 03/11/22 13:49 Freq: Status: Active Protocol: Document 03/11/22 09:45 DCW (Rec: 03/11/22 17:39 DCW [id number]) Manual Assessments Soft Tissue Assessment Soft Tissue Mobility Assessment Significant edema/effusion around right knee, however no notable tenderness or tone along soft tissue Joint Mobility Assessment Joint Mobility Assessment Minimal mobility of patella secondary to subpatellar edema . Severely limited right knee flexion both passively and actively PT-OP-G Mobility & Gait Start: 03/11/22 17:35 Freq: Status: Active Protocol: Document 03/11/22 09:45 DCW (Rec: 03/11/22 17:43 DCW [id number]) OP Gait Assessment Gait Gait Assistance Required: Independent Assistive Devices Assistive Device None Gait Deviations General Gait Pattern Antalgic Factors Limiting Gait Function Factors Limiting Gait Function Limited Range of Motion Comments Gait Comments Pt ambulates with her right knee in full extension, notes that it doesn't hurt, it just doesn't feel like it wants to bend. PT-OP-J Posture/Palpation/Skin Start: 03/11/22 13:49 Freq: Status: Active Protocol: Document 06/30/22 09:54 DCW (Rec: 06/30/22 10:01 DCW [id number]) Skin Assessment Circumference Measurement 10 cm superior to patella Location R leg Measurement (Centimeters) 61.2 Knee joint line Location R joint line Measurement (Centimeters) 52.5 Mid Calf Location R mid calf (9cm inferior patella) Measurement (Centimeters) 49.6 PT-OP-K Range of Motion Start: 03/11/22 13:49 Freq: Status: Active Protocol: Document 07/09/22 09:49 SP (Rec: 07/09/22 10:40 SP [id number]) Knee Goniometric Range of Motion Knee Right Knee ROM WFL No Patient Position Sitting Flexion Active (degrees) 70 Flexion Passive (degrees) 80 Extension Active (degrees) 0 Comments R relaxed extension 2deg. R knee AROM impproved 23deg, PROM 10 deg. PT-OP-L Special Tests Start: 03/11/22 13:49 Freq: Status: Active Protocol: Document 06/30/22 09:54 DCW (Rec: 06/30/22 09:59 DCW [id number]) Special Tests Knee Special Tests Varus- 0 Degrees Test Results Negative Valgus- 0 Degrees Test Results Negative Posterior Draw Test Results Negative Patella Tap Test Results Positive R Elle Test Test Results Negative Gerri's Test Results Negative Anterior Draw Test Results Negative PT-OP-M Strength Start: 03/11/22 13:49 Freq: Status: Active Protocol: Document 03/11/22 09:45 DCW (Rec: 03/11/22 17:39 DCW [id number]) Knee Strength Knee Manual Muscle Testing Right Comments Pt able to hold position against full force with no pain, but unable to move through full flexion PT-OP-Q Treatments Start: 03/11/22 13:49 Freq: Status: Active Protocol: Document 08/18/22 14:33 DCW (Rec: 08/18/22 15:15 DCW [id number]) Cardio Equipment Recumbent Bicycle Duration (Minutes) 6 Resistance 0 Seat Position 7 Other rocking, UE support posteriorly R knee for bend Gym Equipment Shuttle Recovery Bilateral Squats Details 91 deg Resistance 75# (1 new band) Shuttle Recovery Platform Stable Reps/Time 2-5s hold x10 reps Therapeutic Exercises Standing Exercises Step-ups Standing Exercise Name Step-ups Side right Resistance AROM Equipment Used 6 step Reps/Minutes x10 Comments cued quad/ glut fac ascend UE support needed, slow descend Flexion stretch Standing Exercise Name Step R knee flexion and DF stretch Side right Equipment Used 6 step and BOSU, rail support Reps/Minutes 1 min Comments challenged ankle DF and knee flexion, improved post manual Manual Therapy Treatment Joint Mobilizations Patella Direction Lateral, inferior, superior Grade I Body Position Supine Tibiofemoral Joint R knee Direction AP Grade II Body Position Sitting PT-OP-T Assessment and Plan Start: 03/11/22 13:49 Freq: Status: Active Protocol: Document 08/18/22 14:33 DCW (Rec: 08/18/22 15:15 DCW [id number]) Physical Therapy Assessment Impairments Impairments Edema,Functional Activities, Functional Mobility,Gait,ROM Goals Two Impairment Pt severely limited R knee flexion limits ambulation ability Fci Goal (LTG) Pt to improve right knee flexion AROM by at least 40? from 55? to 95? in order to normalize gait pattern and reduce risk for hip and back pain dur to gait disturbance. 05/20/22: No signiifcant AROM 55 deg LTG Duration 08/31/22 Slow progression 06/30 One Impairment Pt does not have an appropriate home exercise program Short Term Goal (STG) Pt to be independent and compliant with an appropriate HEP STG Duration 07/31/22 Assessment Summary Assessment Pt gait improved this week, not nearly as stiff today as last week, still feeling incredibly restricted with ROM . Physical Therapy Plan Frequency and Duration Frequency of Treatment 1-2x/week Plan of Care Start Date 06/30/22 Plan of Care End Date 08/31/22 Therapeutic Interventions Therapeutic Interventions Aquatic Therapy,Gait Training, Home Exercise Program,Joint Mobilizations,Manual Therapy, Patient/Caregiver Education, Self-Care/Home Management,Soft Tissue Mobilization,Taping, Therapeutic Activities, Therapeutic Exercises Modalities Cold Pack/Ice Massage,Electric Stimulation,Hot Packs, Ultrasound Next Visit Focus/Plan Next Note Type Treatment Note Next Visit Plan Recheck R knee AROM pre/ post tx. continue functional ROM and activities. Review HEP: TB HS, TKE eccentric flexion, ankle/knee mobility at step, gait mechanics. Add DF against TB. Add prone quad stretch w/ Strap POC: Continue proper gait phase patterning and self between txs, try hurdles when able. POC: PROM, stretching, gait training
--- NOTE | 2022-08-20 12:47 | PT.OTN ---
Current Diagnoses Stiffness of right knee, not elsewhere classified (08/20/22) Unspecified injury of right lower leg, initial encounter (08/20/22) Unspecified injury of right lower leg, subsequent encounter (08/20/22) Physical Therapy Treatment Note PT-OP-A Visit Information Start: 03/11/22 13:49 Freq: Status: Active Protocol: Document 08/20/22 12:03 DCW (Rec: 08/20/22 12:47 DCW [id number]) Out-Patient Physical Therapy Visit Information Visit Information Visit Type Treatment Note Visit Start Time 12:03 Visit Stop Time 12:45 Total Visit Minutes 42 Visit Number 17 Number of FIELD EXAMINER Visits 0 Evaluation Information Evaluation Date 03/11/22 Precautions Precautions IMPRESSION: 1. Subtle oblique tear involving posterior horn of medial meniscus extending to inferior articulating surface. Lateral meniscus is intact. 2. Low-grade MCL sprain. Anterior and posterior cruciate ligaments are intact. 3. Moderate grade sprain/partial-thickness tear involving lateral patellofemoral ligament near patella insertion. Quadriceps tendon and patellar tendon are intact . 4. [id number]-ga-[id number] tricompartmental osteoarthritis and chondromalacia most notably in medial femoral tibial compartment. Small joint effusion. 5. Nonspecific mild subcutaneous soft tissue edema and small amount of fluid along anterior aspect of patella and patella tendon as above. Per Horacio Rojas M.D. on 04/26/2022 PT-OP-B Current Condition Start: 03/11/22 13:49 Freq: Status: Active Protocol: Document 03/11/22 09:45 DCW (Rec: 03/11/22 14:06 DCW [id number]) Current Condition History of Current Condition Onset Date 11/28/21 Current Complaints Right knee swelling, stiffness History of Current Condition Pt is a 61 year old female presenting to skilled therapy with a three month history of knee swelling and stiffness. Pt reports she tripped and fell on , and as she was holding things at the time, she was unable to catch herself, and fell onto her right knee with her full body weight. Pt reports that she had pretty significant pain for a few weeks, but it is now feeling a lot better. Pt reports that despite it feeling better, it is still swollen and so tight that she struggles to bend it. Pt went to the walk-in clinic one month ago, received x-rays, which were negative, and got referrals to PT and ortho. Admits she has not gone to ortho because they said they were surgeons, and I didn't think it was bad enough that I needed surgery, so I just didn't think I needed to go. Pt presents with a significant R limp due to walking with her knee in full extension at all times. Prior Treatments and Tests R knee x-ray: IMPRESSION: Small joint effusion. 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 Per: Bryce Julien M.D. on 02/09/2022 PT-OP-C Subjective Start: 03/11/22 13:49 Freq: Status: Active Protocol: Document 08/20/22 12:03 DCW (Rec: 08/20/22 12:47 DCW [id number]) OP-PT Subjective Patient Comments Patient Comments It's the same. I keep hoping that one morning I hop out of bed and everything is just magically better. PT-OP-F Manual Assessment Start: 03/11/22 13:49 Freq: Status: Active Protocol: Document 03/11/22 09:45 DCW (Rec: 03/11/22 17:39 DCW [id number]) Manual Assessments Soft Tissue Assessment Soft Tissue Mobility Assessment Significant edema/effusion around right knee, however no notable tenderness or tone along soft tissue Joint Mobility Assessment Joint Mobility Assessment Minimal mobility of patella secondary to subpatellar edema . Severely limited right knee flexion both passively and actively PT-OP-G Mobility & Gait Start: 03/11/22 17:35 Freq: Status: Active Protocol: Document 03/11/22 09:45 DCW (Rec: 03/11/22 17:43 DCW [id number]) OP Gait Assessment Gait Gait Assistance Required: Independent Assistive Devices Assistive Device None Gait Deviations General Gait Pattern Antalgic Factors Limiting Gait Function Factors Limiting Gait Function Limited Range of Motion Comments Gait Comments Pt ambulates with her right knee in full extension, notes that it doesn't hurt, it just doesn't feel like it wants to bend. PT-OP-J Posture/Palpation/Skin Start: 03/11/22 13:49 Freq: Status: Active Protocol: Document 06/30/22 09:54 DCW (Rec: 06/30/22 10:01 DCW [id number]) Skin Assessment Circumference Measurement 10 cm superior to patella Location R leg Measurement (Centimeters) 61.2 Knee joint line Location R joint line Measurement (Centimeters) 52.5 Mid Calf Location R mid calf (9cm inferior patella) Measurement (Centimeters) 49.6 PT-OP-K Range of Motion Start: 03/11/22 13:49 Freq: Status: Active Protocol: Document 07/09/22 09:49 SP (Rec: 07/09/22 10:40 SP [id number]) Knee Goniometric Range of Motion Knee Right Knee ROM WFL No Patient Position Sitting Flexion Active (degrees) 70 Flexion Passive (degrees) 80 Extension Active (degrees) 0 Comments R relaxed extension 2deg. R knee AROM impproved 23deg, PROM 10 deg. PT-OP-L Special Tests Start: 03/11/22 13:49 Freq: Status: Active Protocol: Document 06/30/22 09:54 DCW (Rec: 06/30/22 09:59 DCW [id number]) Special Tests Knee Special Tests Varus- 0 Degrees Test Results Negative Valgus- 0 Degrees Test Results Negative Posterior Draw Test Results Negative Patella Tap Test Results Positive R Elle Test Test Results Negative Gerri's Test Results Negative Anterior Draw Test Results Negative PT-OP-M Strength Start: 03/11/22 13:49 Freq: Status: Active Protocol: Document 03/11/22 09:45 DCW (Rec: 03/11/22 17:39 DCW [id number]) Knee Strength Knee Manual Muscle Testing Right Comments Pt able to hold position against full force with no pain, but unable to move through full flexion PT-OP-Q Treatments Start: 03/11/22 13:49 Freq: Status: Active Protocol: Document 08/20/22 12:03 DCW (Rec: 08/20/22 12:47 DCW [id number]) Cardio Equipment Recumbent Bicycle Duration (Minutes) 6 Resistance 0 Seat Position 7 Other rocking, UE support posteriorly R knee for bend Gym Equipment Shuttle Recovery Bilateral Squats Details 96? Resistance 75# (1 new band) Shuttle Recovery Platform Stable Reps/Time 2-5s hold x10 reps Therapeutic Exercises Standing Exercises Step-ups Standing Exercise Name Step-ups Side right Resistance AROM Equipment Used 6 step Reps/Minutes x10 Comments cued quad/ glut fac ascend UE support needed, slow descend Flexion stretch Standing Exercise Name Step R knee flexion and DF stretch Side right Equipment Used 6 step and BOSU, rail support Reps/Minutes 1 min Comments challenged ankle DF and knee flexion, improved post manual Manual Therapy Treatment Joint Mobilizations Patella Direction Lateral, inferior, superior Grade I Body Position Supine Tibiofemoral Joint R knee Direction AP Grade II Body Position Sitting PT-OP-T Assessment and Plan Start: 03/11/22 13:49 Freq: Status: Active Protocol: Document 08/20/22 12:03 DCW (Rec: 08/20/22 12:47 DCW [id number]) Physical Therapy Assessment Impairments Impairments Edema,Functional Activities, Functional Mobility,Gait,ROM Goals Two Impairment Pt severely limited R knee flexion limits ambulation ability Pharmacologist Goal (LTG) Pt to improve right knee flexion AROM by at least 40? from 55? to 95? in order to normalize gait pattern and reduce risk for hip and back pain dur to gait disturbance. 05/20/22: No signiifcant AROM 55 deg LTG Duration 08/31/22 Slow progression 06/30 One Impairment Pt does not have an appropriate home exercise program Short Term Goal (STG) Pt to be independent and compliant with an appropriate HEP STG Duration 07/31/22 Assessment Summary Assessment Pt showing some improvement with ROM, getting to 96? when using the leg press for PROM flexion, which is the most flexion she has gotten so far during rehab. Pt getting more optimistic about recovery, although still frustrated that it is taking so long. Physical Therapy Plan Frequency and Duration Frequency of Treatment 1-2x/week Plan of Care Start Date 06/30/22 Plan of Care End Date 08/31/22 Therapeutic Interventions Therapeutic Interventions Aquatic Therapy,Gait Training, Home Exercise Program,Joint Mobilizations,Manual Therapy, Patient/Caregiver Education, Self-Care/Home Management,Soft Tissue Mobilization,Taping, Therapeutic Activities, Therapeutic Exercises Modalities Cold Pack/Ice Massage,Electric Stimulation,Hot Packs, Ultrasound Next Visit Focus/Plan Next Note Type Treatment Note Next Visit Plan Recheck R knee AROM pre/ post tx. continue functional ROM and activities. Review HEP: TB HS, TKE eccentric flexion, ankle/knee mobility at step, gait mechanics. Add DF against TB. Add prone quad stretch w/ Strap POC: Continue proper gait phase patterning and self between txs, try hurdles when able. POC: PROM, stretching, gait training
--- NOTE | 2022-08-24 12:49 | PT.OTN ---
Current Diagnoses Stiffness of right knee, not elsewhere classified (08/24/22) Unspecified injury of right lower leg, initial encounter (08/24/22) Unspecified injury of right lower leg, subsequent encounter (08/24/22) Physical Therapy Treatment Note PT-OP-A Visit Information Start: 03/11/22 13:49 Freq: Status: Active Protocol: Document 08/24/22 12:08 DCW (Rec: 08/24/22 12:49 DCW [id number]) Out-Patient Physical Therapy Visit Information Visit Information Visit Type Treatment Note Visit Start Time 12:08 Visit Stop Time 12:46 Total Visit Minutes 38 Visit Number 18 Number of MICROBIOLOGY QUALITY CONTROL TECHNICIAN Visits 0 Evaluation Information Evaluation Date 03/11/22 Precautions Precautions IMPRESSION: 1. Subtle oblique tear involving posterior horn of medial meniscus extending to inferior articulating surface. Lateral meniscus is intact. 2. Low-grade MCL sprain. Anterior and posterior cruciate ligaments are intact. 3. Moderate grade sprain/partial-thickness tear involving lateral patellofemoral ligament near patella insertion. Quadriceps tendon and patellar tendon are intact . 4. [id number] tricompartmental osteoarthritis and chondromalacia most notably in medial femoral tibial compartment. Small joint effusion. 5. Nonspecific mild subcutaneous soft tissue edema and small amount of fluid along anterior aspect of patella and patella tendon as above. Per Horacio Rojas M.D. on 04/26/2022 PT-OP-B Current Condition Start: 03/11/22 13:49 Freq: Status: Active Protocol: Document 03/11/22 09:45 DCW (Rec: 03/11/22 14:06 DCW [id number]) Current Condition History of Current Condition Onset Date 11/28/21 Current Complaints Right knee swelling, stiffness History of Current Condition Pt is a 61 year old female presenting to skilled therapy with a three month history of knee swelling and stiffness. Pt reports she tripped and fell on , and as she was holding things at the time, she was unable to catch herself, and fell onto her right knee with her full body weight. Pt reports that she had pretty significant pain for a few weeks, but it is now feeling a lot better. Pt reports that despite it feeling better, it is still swollen and so tight that she struggles to bend it. Pt went to the walk-in clinic one month ago, received x-rays, which were negative, and got referrals to PT and ortho. Admits she has not gone to ortho because they said they were surgeons, and I didn't think it was bad enough that I needed surgery, so I just didn't think I needed to go. Pt presents with a significant R limp due to walking with her knee in full extension at all times. Prior Treatments and Tests R knee x-ray: IMPRESSION: Small joint effusion. 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 Per: Bryce Julien M.D. on 02/09/2022 PT-OP-C Subjective Start: 03/11/22 13:49 Freq: Status: Active Protocol: Document 08/24/22 12:08 DCW (Rec: 08/24/22 12:49 DCW [id number]) OP-PT Subjective Patient Comments Patient Comments Pt hoping to get back to driving herself, feels her knee is bending reliably enough that she can do it. PT-OP-F Manual Assessment Start: 03/11/22 13:49 Freq: Status: Active Protocol: Document 03/11/22 09:45 DCW (Rec: 03/11/22 17:39 DCW [id number]) Manual Assessments Soft Tissue Assessment Soft Tissue Mobility Assessment Significant edema/effusion around right knee, however no notable tenderness or tone along soft tissue Joint Mobility Assessment Joint Mobility Assessment Minimal mobility of patella secondary to subpatellar edema . Severely limited right knee flexion both passively and actively PT-OP-G Mobility & Gait Start: 03/11/22 17:35 Freq: Status: Active Protocol: Document 03/11/22 09:45 DCW (Rec: 03/11/22 17:43 DCW [id number]) OP Gait Assessment Gait Gait Assistance Required: Independent Assistive Devices Assistive Device None Gait Deviations General Gait Pattern Antalgic Factors Limiting Gait Function Factors Limiting Gait Function Limited Range of Motion Comments Gait Comments Pt ambulates with her right knee in full extension, notes that it doesn't hurt, it just doesn't feel like it wants to bend. PT-OP-J Posture/Palpation/Skin Start: 03/11/22 13:49 Freq: Status: Active Protocol: Document 06/30/22 09:54 DCW (Rec: 06/30/22 10:01 DCW [id number]) Skin Assessment Circumference Measurement 10 cm superior to patella Location R leg Measurement (Centimeters) 61.2 Knee joint line Location R joint line Measurement (Centimeters) 52.5 Mid Calf Location R mid calf (9cm inferior patella) Measurement (Centimeters) 49.6 PT-OP-K Range of Motion Start: 03/11/22 13:49 Freq: Status: Active Protocol: Document 07/09/22 09:49 SP (Rec: 07/09/22 10:40 SP [id number]) Knee Goniometric Range of Motion Knee Right Knee ROM WFL No Patient Position Sitting Flexion Active (degrees) 70 Flexion Passive (degrees) 80 Extension Active (degrees) 0 Comments R relaxed extension 2deg. R knee AROM impproved 23deg, PROM 10 deg. PT-OP-L Special Tests Start: 03/11/22 13:49 Freq: Status: Active Protocol: Document 06/30/22 09:54 DCW (Rec: 06/30/22 09:59 DCW [id number]) Special Tests Knee Special Tests Varus- 0 Degrees Test Results Negative Valgus- 0 Degrees Test Results Negative Posterior Draw Test Results Negative Patella Tap Test Results Positive R Elle Test Test Results Negative Gerri's Test Results Negative Anterior Draw Test Results Negative PT-OP-M Strength Start: 03/11/22 13:49 Freq: Status: Active Protocol: Document 03/11/22 09:45 DCW (Rec: 03/11/22 17:39 DCW [id number]) Knee Strength Knee Manual Muscle Testing Right Comments Pt able to hold position against full force with no pain, but unable to move through full flexion PT-OP-Q Treatments Start: 03/11/22 13:49 Freq: Status: Active Protocol: Document 08/24/22 12:08 DCW (Rec: 08/24/22 12:49 DCW [id number]) Cardio Equipment Recumbent Bicycle Duration (Minutes) 6 Resistance 0 Seat Position 7 Other rocking, UE support posteriorly R knee for bend Gym Equipment Shuttle Recovery Bilateral Squats Resistance 75# (1 new band) Shuttle Recovery Platform Stable Reps/Time 2-5s hold x10 reps Shuttle Balance Red Details Staggered, Lateral weight shift Therapeutic Exercises Standing Exercises Step-ups Standing Exercise Name Step-ups Side right Resistance AROM Equipment Used 6 step Reps/Minutes x10 Comments cued quad/ glut fac ascend UE support needed, slow descend Flexion stretch Standing Exercise Name Step R knee flexion and DF stretch Side right Equipment Used 6 step and BOSU, rail support Manual Therapy Treatment Joint Mobilizations Patella Direction Lateral, inferior, superior Grade I Body Position Supine Tibiofemoral Joint R knee Direction AP Grade II Body Position Sitting PT-OP-T Assessment and Plan Start: 03/11/22 13:49 Freq: Status: Active Protocol: Document 08/24/22 12:08 DCW (Rec: 08/24/22 12:49 DCW [id number]) Physical Therapy Assessment Impairments Impairments Edema,Functional Activities, Functional Mobility,Gait,ROM Goals Two Impairment Pt severely limited R knee flexion limits ambulation ability Senior Care Goal (LTG) Pt to improve right knee flexion AROM by at least 40? from 55? to 95? in order to normalize gait pattern and reduce risk for hip and back pain dur to gait disturbance. 05/20/22: No signiifcant AROM 55 deg LTG Duration 08/31/22 Slow progression 06/30 One Impairment Pt does not have an appropriate home exercise program Short Term Goal (STG) Pt to be independent and compliant with an appropriate HEP STG Duration 07/31/22 Assessment Summary Assessment Pt tolerating manual treatment much better recently, added shuttle balance challenges today, pt adapted well after learning period. Physical Therapy Plan Frequency and Duration Frequency of Treatment 1-2x/week Plan of Care Start Date 06/30/22 Plan of Care End Date 08/31/22 Therapeutic Interventions Therapeutic Interventions Aquatic Therapy,Gait Training, Home Exercise Program,Joint Mobilizations,Manual Therapy, Patient/Caregiver Education, Self-Care/Home Management,Soft Tissue Mobilization,Taping, Therapeutic Activities, Therapeutic Exercises Modalities Cold Pack/Ice Massage,Electric Stimulation,Hot Packs, Ultrasound Next Visit Focus/Plan Next Note Type Treatment Note Next Visit Plan Recheck R knee AROM pre/ post tx. continue functional ROM and activities. Review HEP: TB HS, TKE eccentric flexion, ankle/knee mobility at step, gait mechanics. Add DF against TB. Add prone quad stretch w/ Strap POC: Continue proper gait phase patterning and self between txs, try hurdles when able. POC: PROM, stretching, gait training
--- NOTE | 2022-08-27 12:00 | PT.OTN ---
Current Diagnoses Stiffness of right knee, not elsewhere classified (08/27/22) Unspecified injury of right lower leg, initial encounter (08/27/22) Unspecified injury of right lower leg, subsequent encounter (08/27/22) Physical Therapy Treatment Note PT-OP-A Visit Information Start: 03/11/22 13:49 Freq: Status: Active Protocol: Document 08/27/22 11:19 DCW (Rec: 08/27/22 12:00 DCW [id number]) Out-Patient Physical Therapy Visit Information Visit Information Visit Type Treatment Note Visit Start Time 11:19 Visit Stop Time 12:00 Total Visit Minutes 41 Visit Number 19 Number of FISCAL ACCOUNTANT Visits 0 Evaluation Information Evaluation Date 03/11/22 Precautions Precautions IMPRESSION: 1. Subtle oblique tear involving posterior horn of medial meniscus extending to inferior articulating surface. Lateral meniscus is intact. 2. Low-grade MCL sprain. Anterior and posterior cruciate ligaments are intact. 3. Moderate grade sprain/partial-thickness tear involving lateral patellofemoral ligament near patella insertion. Quadriceps tendon and patellar tendon are intact . 4. [id number] tricompartmental osteoarthritis and chondromalacia most notably in medial femoral tibial compartment. Small joint effusion. 5. Nonspecific mild subcutaneous soft tissue edema and small amount of fluid along anterior aspect of patella and patella tendon as above. Per Horacio Rojas M.D. on 04/26/2022 PT-OP-B Current Condition Start: 03/11/22 13:49 Freq: Status: Active Protocol: Document 03/11/22 09:45 DCW (Rec: 03/11/22 14:06 DCW [id number]) Current Condition History of Current Condition Onset Date 11/28/21 Current Complaints Right knee swelling, stiffness History of Current Condition Pt is a 61 year old female presenting to skilled therapy with a three month history of knee swelling and stiffness. Pt reports she tripped and fell on , and as she was holding things at the time, she was unable to catch herself, and fell onto her right knee with her full body weight. Pt reports that she had pretty significant pain for a few weeks, but it is now feeling a lot better. Pt reports that despite it feeling better, it is still swollen and so tight that she struggles to bend it. Pt went to the walk-in clinic one month ago, received x-rays, which were negative, and got referrals to PT and ortho. Admits she has not gone to ortho because they said they were surgeons, and I didn't think it was bad enough that I needed surgery, so I just didn't think I needed to go. Pt presents with a significant R limp due to walking with her knee in full extension at all times. Prior Treatments and Tests R knee x-ray: IMPRESSION: Small joint effusion. 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 Per: Bryce Julien M.D. on 02/09/2022 PT-OP-C Subjective Start: 03/11/22 13:49 Freq: Status: Active Protocol: Document 08/27/22 11:19 DCW (Rec: 08/27/22 12:00 DCW [id number]) OP-PT Subjective Patient Comments Patient Comments I wish I could say it feels better, but it just feels the same every time. PT-OP-F Manual Assessment Start: 03/11/22 13:49 Freq: Status: Active Protocol: Document 03/11/22 09:45 DCW (Rec: 03/11/22 17:39 DCW [id number]) Manual Assessments Soft Tissue Assessment Soft Tissue Mobility Assessment Significant edema/effusion around right knee, however no notable tenderness or tone along soft tissue Joint Mobility Assessment Joint Mobility Assessment Minimal mobility of patella secondary to subpatellar edema . Severely limited right knee flexion both passively and actively PT-OP-G Mobility & Gait Start: 03/11/22 17:35 Freq: Status: Active Protocol: Document 03/11/22 09:45 DCW (Rec: 03/11/22 17:43 DCW [id number]) OP Gait Assessment Gait Gait Assistance Required: Independent Assistive Devices Assistive Device None Gait Deviations General Gait Pattern Antalgic Factors Limiting Gait Function Factors Limiting Gait Function Limited Range of Motion Comments Gait Comments Pt ambulates with her right knee in full extension, notes that it doesn't hurt, it just doesn't feel like it wants to bend. PT-OP-J Posture/Palpation/Skin Start: 03/11/22 13:49 Freq: Status: Active Protocol: Document 06/30/22 09:54 DCW (Rec: 06/30/22 10:01 DCW [id number]) Skin Assessment Circumference Measurement 10 cm superior to patella Location R leg Measurement (Centimeters) 61.2 Knee joint line Location R joint line Measurement (Centimeters) 52.5 Mid Calf Location R mid calf (9cm inferior patella) Measurement (Centimeters) 49.6 PT-OP-K Range of Motion Start: 03/11/22 13:49 Freq: Status: Active Protocol: Document 07/09/22 09:49 SP (Rec: 07/09/22 10:40 SP [id number]) Knee Goniometric Range of Motion Knee Right Knee ROM WFL No Patient Position Sitting Flexion Active (degrees) 70 Flexion Passive (degrees) 80 Extension Active (degrees) 0 Comments R relaxed extension 2deg. R knee AROM impproved 23deg, PROM 10 deg. PT-OP-L Special Tests Start: 03/11/22 13:49 Freq: Status: Active Protocol: Document 06/30/22 09:54 DCW (Rec: 06/30/22 09:59 DCW [id number]) Special Tests Knee Special Tests Varus- 0 Degrees Test Results Negative Valgus- 0 Degrees Test Results Negative Posterior Draw Test Results Negative Patella Tap Test Results Positive R Elle Test Test Results Negative Gerri's Test Results Negative Anterior Draw Test Results Negative PT-OP-M Strength Start: 03/11/22 13:49 Freq: Status: Active Protocol: Document 03/11/22 09:45 DCW (Rec: 03/11/22 17:39 DCW [id number]) Knee Strength Knee Manual Muscle Testing Right Comments Pt able to hold position against full force with no pain, but unable to move through full flexion PT-OP-Q Treatments Start: 03/11/22 13:49 Freq: Status: Active Protocol: Document 08/27/22 11:19 DCW (Rec: 08/27/22 12:00 DCW [id number]) Cardio Equipment Recumbent Bicycle Duration (Minutes) 6 Resistance 0 Seat Position 7 Other rocking, UE support posteriorly R knee for bend Gym Equipment Shuttle Recovery Bilateral Squats Resistance 87# (1 new band) Shuttle Recovery Platform Stable Reps/Time 2-5s hold x10 reps Shuttle Balance Red Details Staggered, Lateral weight shift Therapeutic Exercises Standing Exercises Flexion stretch Standing Exercise Name R knee flexion stretch/lunge Side right Equipment Used BOSU, rail support Manual Therapy Treatment Joint Mobilizations Patella Direction Lateral, inferior, superior Grade III Body Position Supine Tibiofemoral Joint R knee Direction AP Grade III Body Position Hooklying PT-OP-T Assessment and Plan Start: 03/11/22 13:49 Freq: Status: Active Protocol: Document 08/27/22 11:19 DCW (Rec: 08/27/22 12:00 DCW [id number]) Physical Therapy Assessment Impairments Impairments Edema,Functional Activities, Functional Mobility,Gait,ROM Goals Two Impairment Pt severely limited R knee flexion limits ambulation ability Mixer Foam Rubber Goal (LTG) Pt to improve right knee flexion AROM by at least 40? from 55? to 95? in order to normalize gait pattern and reduce risk for hip and back pain dur to gait disturbance. 05/20/22: No signiifcant AROM 55 deg LTG Duration 08/31/22 Slow progression 06/30 One Impairment Pt does not have an appropriate home exercise program Short Term Goal (STG) Pt to be independent and compliant with an appropriate HEP STG Duration 07/31/22 Assessment Summary Assessment Pt showing improved ambulation without verbal cues, at no point during today's session was she walking with her right knee locked in extension, appears to be flexed knee more during swing phase without needing to stop and think about it. Physical Therapy Plan Frequency and Duration Frequency of Treatment 1-2x/week Plan of Care Start Date 06/30/22 Plan of Care End Date 08/31/22 Therapeutic Interventions Therapeutic Interventions Aquatic Therapy,Gait Training, Home Exercise Program,Joint Mobilizations,Manual Therapy, Patient/Caregiver Education, Self-Care/Home Management,Soft Tissue Mobilization,Taping, Therapeutic Activities, Therapeutic Exercises Modalities Cold Pack/Ice Massage,Electric Stimulation,Hot Packs, Ultrasound Next Visit Focus/Plan Next Note Type Progress Note Next Visit Plan Recheck R knee AROM pre/ post tx. continue functional ROM and activities. Review HEP: TB HS, TKE eccentric flexion, ankle/knee mobility at step, gait mechanics. Add DF against TB. Add prone quad stretch w/ Strap POC: Continue proper gait phase patterning and self between txs, try hurdles when able. POC: PROM, stretching, gait training
--- NOTE | 2022-08-31 12:47 | PT.OTN ---
Current Diagnoses Stiffness of right knee, not elsewhere classified (08/31/22) Unspecified injury of right lower leg, initial encounter (08/31/22) Unspecified injury of right lower leg, subsequent encounter (08/31/22) Physical Therapy Treatment Note PT-OP-A Visit Information Start: 03/11/22 13:49 Freq: Status: Active Protocol: Document 08/31/22 12:04 DCW (Rec: 08/31/22 12:47 DCW [id number]) Out-Patient Physical Therapy Visit Information Visit Information Visit Type Treatment Note Visit Start Time 12:04 Visit Stop Time 12:45 Total Visit Minutes 41 Visit Number 20 Number of DIRECTOR OF RESEARCH Visits 0 Evaluation Information Evaluation Date 03/11/22 Precautions Precautions IMPRESSION: 1. Subtle oblique tear involving posterior horn of medial meniscus extending to inferior articulating surface. Lateral meniscus is intact. 2. Low-grade MCL sprain. Anterior and posterior cruciate ligaments are intact. 3. Moderate grade sprain/partial-thickness tear involving lateral patellofemoral ligament near patella insertion. Quadriceps tendon and patellar tendon are intact . 4. [id number] tricompartmental osteoarthritis and chondromalacia most notably in medial femoral tibial compartment. Small joint effusion. 5. Nonspecific mild subcutaneous soft tissue edema and small amount of fluid along anterior aspect of patella and patella tendon as above. Per Horacio Rojas M.D. on 04/26/2022 PT-OP-B Current Condition Start: 03/11/22 13:49 Freq: Status: Active Protocol: Document 03/11/22 09:45 DCW (Rec: 03/11/22 14:06 DCW [id number]) Current Condition History of Current Condition Onset Date 11/28/21 Current Complaints Right knee swelling, stiffness History of Current Condition Pt is a 61 year old female presenting to skilled therapy with a three month history of knee swelling and stiffness. Pt reports she tripped and fell on , and as she was holding things at the time, she was unable to catch herself, and fell onto her right knee with her full body weight. Pt reports that she had pretty significant pain for a few weeks, but it is now feeling a lot better. Pt reports that despite it feeling better, it is still swollen and so tight that she struggles to bend it. Pt went to the walk-in clinic one month ago, received x-rays, which were negative, and got referrals to PT and ortho. Admits she has not gone to ortho because they said they were surgeons, and I didn't think it was bad enough that I needed surgery, so I just didn't think I needed to go. Pt presents with a significant R limp due to walking with her knee in full extension at all times. Prior Treatments and Tests R knee x-ray: IMPRESSION: Small joint effusion. 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 Per: Bryce Julien M.D. on 02/09/2022 PT-OP-C Subjective Start: 03/11/22 13:49 Freq: Status: Active Protocol: Document 08/31/22 12:04 DCW (Rec: 08/31/22 12:47 DCW [id number]) OP-PT Subjective Patient Comments Patient Comments I noticed my left knee was feeling a little weird after the last session, I don't know if it was something I did here, or just random. PT-OP-F Manual Assessment Start: 03/11/22 13:49 Freq: Status: Active Protocol: Document 03/11/22 09:45 DCW (Rec: 03/11/22 17:39 DCW [id number]) Manual Assessments Soft Tissue Assessment Soft Tissue Mobility Assessment Significant edema/effusion around right knee, however no notable tenderness or tone along soft tissue Joint Mobility Assessment Joint Mobility Assessment Minimal mobility of patella secondary to subpatellar edema . Severely limited right knee flexion both passively and actively PT-OP-G Mobility & Gait Start: 03/11/22 17:35 Freq: Status: Active Protocol: Document 03/11/22 09:45 DCW (Rec: 03/11/22 17:43 DCW [id number]) OP Gait Assessment Gait Gait Assistance Required: Independent Assistive Devices Assistive Device None Gait Deviations General Gait Pattern Antalgic Factors Limiting Gait Function Factors Limiting Gait Function Limited Range of Motion Comments Gait Comments Pt ambulates with her right knee in full extension, notes that it doesn't hurt, it just doesn't feel like it wants to bend. PT-OP-J Posture/Palpation/Skin Start: 03/11/22 13:49 Freq: Status: Active Protocol: Document 06/30/22 09:54 DCW (Rec: 06/30/22 10:01 DCW [id number]) Skin Assessment Circumference Measurement 10 cm superior to patella Location R leg Measurement (Centimeters) 61.2 Knee joint line Location R joint line Measurement (Centimeters) 52.5 Mid Calf Location R mid calf (9cm inferior patella) Measurement (Centimeters) 49.6 PT-OP-K Range of Motion Start: 03/11/22 13:49 Freq: Status: Active Protocol: Document 07/09/22 09:49 SP (Rec: 07/09/22 10:40 SP [id number]) Knee Goniometric Range of Motion Knee Right Knee ROM WFL No Patient Position Sitting Flexion Active (degrees) 70 Flexion Passive (degrees) 80 Extension Active (degrees) 0 Comments R relaxed extension 2deg. R knee AROM impproved 23deg, PROM 10 deg. PT-OP-L Special Tests Start: 03/11/22 13:49 Freq: Status: Active Protocol: Document 06/30/22 09:54 DCW (Rec: 06/30/22 09:59 DCW [id number]) Special Tests Knee Special Tests Varus- 0 Degrees Test Results Negative Valgus- 0 Degrees Test Results Negative Posterior Draw Test Results Negative Patella Tap Test Results Positive R Elle Test Test Results Negative Gerri's Test Results Negative Anterior Draw Test Results Negative PT-OP-M Strength Start: 03/11/22 13:49 Freq: Status: Active Protocol: Document 03/11/22 09:45 DCW (Rec: 03/11/22 17:39 DCW [id number]) Knee Strength Knee Manual Muscle Testing Right Comments Pt able to hold position against full force with no pain, but unable to move through full flexion PT-OP-Q Treatments Start: 03/11/22 13:49 Freq: Status: Active Protocol: Document 08/31/22 12:04 DCW (Rec: 08/31/22 12:47 DCW [id number]) Cardio Equipment Recumbent Bicycle Duration (Minutes) 6 Resistance 0 Seat Position 7 Other rocking Gym Equipment Shuttle Recovery Bilateral Squats Resistance 87# (1 new band) Shuttle Recovery Platform Stable Reps/Time 2-5s hold x10 reps Shuttle Balance Red Details Staggered, Lateral weight shift Therapeutic Exercises Standing Exercises Flexion stretch Standing Exercise Name R knee flexion stretch/lunge Side right Equipment Used BOSU, rail support Manual Therapy Treatment Joint Mobilizations Patella Direction Lateral, inferior, superior Grade III Body Position Supine Tibiofemoral Joint R knee Direction AP Grade III Body Position Hooklying PT-OP-T Assessment and Plan Start: 03/11/22 13:49 Freq: Status: Active Protocol: Document 08/31/22 12:04 DCW (Rec: 08/31/22 12:47 DCW [id number]) Physical Therapy Assessment Impairments Impairments Edema,Functional Activities, Functional Mobility,Gait,ROM Goals Two Impairment Pt severely limited R knee flexion limits ambulation ability Assisted Goal (LTG) Pt to improve right knee flexion AROM by at least 40? from 55? to 95? in order to normalize gait pattern and reduce risk for hip and back pain dur to gait disturbance. 05/20/22: No signiifcant AROM 55 deg LTG Duration 08/31/22 Slow progression 06/30 One Impairment Pt does not have an appropriate home exercise program Short Term Goal (STG) Pt to be independent and compliant with an appropriate HEP STG Duration 07/31/22 Assessment Summary Assessment Pt showing some improvement in tolerable ROM, reporting less sensation of stiffness until end-range. Showing some progress with stabilization on balance board. Physical Therapy Plan Frequency and Duration Frequency of Treatment 1-2x/week Plan of Care Start Date 06/30/22 Plan of Care End Date 08/31/22 Therapeutic Interventions Therapeutic Interventions Aquatic Therapy,Gait Training, Home Exercise Program,Joint Mobilizations,Manual Therapy, Patient/Caregiver Education, Self-Care/Home Management,Soft Tissue Mobilization,Taping, Therapeutic Activities, Therapeutic Exercises Modalities Cold Pack/Ice Massage,Electric Stimulation,Hot Packs, Ultrasound Next Visit Focus/Plan Next Note Type Progress Note Next Visit Plan Recheck R knee AROM pre/ post tx. continue functional ROM and activities. Review HEP: TB HS, TKE eccentric flexion, ankle/knee mobility at step, gait mechanics. Add DF against TB. Add prone quad stretch w/ Strap POC: Continue proper gait phase patterning and self between txs, try hurdles when able. POC: PROM, stretching, gait training
--- NOTE | 2022-09-03 12:03 | PT.OTN ---
Current Diagnoses Stiffness of right knee, not elsewhere classified (09/03/22) Unspecified injury of right lower leg, initial encounter (09/03/22) Unspecified injury of right lower leg, subsequent encounter (09/03/22) Physical Therapy Treatment Note PT-OP-A Visit Information Start: 03/11/22 13:49 Freq: Status: Active Protocol: Document 09/03/22 11:20 DCW (Rec: 09/03/22 12:03 DCW [id number]) Out-Patient Physical Therapy Visit Information Visit Information Visit Type Treatment Note Visit Start Time 11:20 Visit Stop Time 12:00 Total Visit Minutes 40 Visit Number 21 Number of ASSISTANT TO THE DIRECTOR Visits 0 Evaluation Information Evaluation Date 03/11/22 Precautions Precautions IMPRESSION: 1. Subtle oblique tear involving posterior horn of medial meniscus extending to inferior articulating surface. Lateral meniscus is intact. 2. Low-grade MCL sprain. Anterior and posterior cruciate ligaments are intact. 3. Moderate grade sprain/partial-thickness tear involving lateral patellofemoral ligament near patella insertion. Quadriceps tendon and patellar tendon are intact . 4. Lovm-ie-lkkbgbig tricompartmental osteoarthritis and chondromalacia most notably in medial femoral tibial compartment. Small joint effusion. 5. Nonspecific mild subcutaneous soft tissue edema and small amount of fluid along anterior aspect of patella and patella tendon as above. Per Horacio Rojas M.D. on 04/26/2022 PT-OP-B Current Condition Start: 03/11/22 13:49 Freq: Status: Active Protocol: Document 03/11/22 09:45 DCW (Rec: 03/11/22 14:06 DCW [id number]) Current Condition History of Current Condition Onset Date 11/28/21 Current Complaints Right knee swelling, stiffness History of Current Condition Pt is a 61 year old female presenting to skilled therapy with a three month history of knee swelling and stiffness. Pt reports she tripped and fell on , and as she was holding things at the time, she was unable to catch herself, and fell onto her right knee with her full body weight. Pt reports that she had pretty significant pain for a few weeks, but it is now feeling a lot better. Pt reports that despite it feeling better, it is still swollen and so tight that she struggles to bend it. Pt went to the walk-in clinic one month ago, received x-rays, which were negative, and got referrals to PT and ortho. Admits she has not gone to ortho because they said they were surgeons, and I didn't think it was bad enough that I needed surgery, so I just didn't think I needed to go. Pt presents with a significant R limp due to walking with her knee in full extension at all times. Prior Treatments and Tests R knee x-ray: IMPRESSION: Small joint effusion. 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 Per: Bryce Julien M.D. on 02/09/2022 PT-OP-C Subjective Start: 03/11/22 13:49 Freq: Status: Active Protocol: Document 09/03/22 11:20 DCW (Rec: 09/03/22 12:03 DCW [id number]) OP-PT Subjective Patient Comments Patient Comments Pt feeling a little more obtimistic, notes her walking has been a bit more natural. PT-OP-F Manual Assessment Start: 03/11/22 13:49 Freq: Status: Active Protocol: Document 09/03/22 11:20 DCW (Rec: 09/03/22 11:43 DCW [id number]) Manual Assessments Soft Tissue Assessment Soft Tissue Mobility Assessment Edema has largely improved, slight increase in circumfrential measurements vs left leg Joint Mobility Assessment Joint Mobility Assessment Moderately limited mobility of patella PT-OP-G Mobility & Gait Start: 03/11/22 17:35 Freq: Status: Active Protocol: Document 09/03/22 11:20 DCW (Rec: 09/03/22 11:43 DCW [id number]) OP Gait Assessment Gait Gait Assistance Required: Independent Assistive Devices Assistive Device None Gait Deviations General Gait Pattern Antalgic Factors Limiting Gait Function Factors Limiting Gait Function Limited Range of Motion Comments Gait Comments Pt improving with knee flexion during gait, admits she does need to constantly think about it, or she returns to ambulating with right knee in full extension PT-OP-J Posture/Palpation/Skin Start: 03/11/22 13:49 Freq: Status: Active Protocol: Document 09/03/22 11:20 DCW (Rec: 09/03/22 11:43 DCW [id number]) Skin Assessment Circumference Measurement 10 cm superior to patella Location R leg Measurement (Centimeters) 63.2 Knee joint line Location R joint line Measurement (Centimeters) 51.2 Mid Calf Location R mid calf (9cm inferior patella) Measurement (Centimeters) 49.4 PT-OP-K Range of Motion Start: 03/11/22 13:49 Freq: Status: Active Protocol: Document 09/03/22 11:20 DCW (Rec: 09/03/22 11:43 DCW [id number]) Knee Goniometric Range of Motion Knee Right Knee ROM WFL No Patient Position Sitting Flexion Active (degrees) 88 Flexion Passive (degrees) 96 Extension Active (degrees) 0 Comments PROM in supine: 104 PT-OP-L Special Tests Start: 03/11/22 13:49 Freq: Status: Active Protocol: Document 09/03/22 11:20 DCW (Rec: 09/03/22 11:43 DCW [id number]) Special Tests Knee Special Tests Varus- 0 Degrees Test Results Negative Valgus- 0 Degrees Test Results Negative Posterior Draw Test Results Negative Patella Tap Test Results Negative Elle Test Test Results Negative Gerri's Test Results Negative Anterior Draw Test Results Negative PT-OP-M Strength Start: 03/11/22 13:49 Freq: Status: Active Protocol: Document 09/03/22 11:20 DCW (Rec: 09/03/22 11:43 DCW [id number]) Knee Strength Knee Manual Muscle Testing Right Comments Pt able to hold position against full force with no pain, but unable to move through full flexion PT-OP-Q Treatments Start: 03/11/22 13:49 Freq: Status: Active Protocol: Document 09/03/22 11:20 DCW (Rec: 09/03/22 12:03 DCW [id number]) Cardio Equipment Recumbent Bicycle Duration (Minutes) 6 Resistance 0 Seat Position 7 Other rocking Gym Equipment Shuttle Recovery Bilateral Squats Resistance 87# (1 new band) Shuttle Recovery Platform Stable Reps/Time 2-5s hold x10 reps Shuttle Balance Red Details Staggered, Lateral weight shift Therapeutic Exercises Standing Exercises Step-ups Standing Exercise Name Step-ups Side right Resistance AROM Equipment Used 6 step Reps/Minutes x10 Flexion stretch Standing Exercise Name R knee flexion stretch/lunge Side right Equipment Used BOSU, rail support PT-OP-T Assessment and Plan Start: 03/11/22 13:49 Freq: Status: Active Protocol: Document 09/03/22 11:20 DCW (Rec: 09/03/22 12:03 DCW [id number]) Physical Therapy Assessment Impairments Impairments Edema,Functional Activities, Functional Mobility,Gait,ROM Goals Two Impairment Pt severely limited R knee flexion limits ambulation ability Long-Term Goal (LTG) Pt to improve right knee flexion AROM by at least 40? from 55? to 95? in order to normalize gait pattern and reduce risk for hip and back pain dur to gait disturbance. 05/20/22: No signiifcant AROM 55 deg LTG Duration 12/02/22 Slow progression One Impairment Pt does not have an appropriate home exercise program Short Term Goal (STG) Pt to be independent and compliant with an appropriate HEP STG Duration Met Assessment Summary Assessment Pt continues to progress very slowly, however is making good progress with both passive and active ROM, as well as improved quality of gait. Passive knee flexion improved to 104? today, and active to 88?. Pt will likely benefit from continued skilled therapy focusing on knee strength, stability, ROM, and gait training. Physical Therapy Plan Frequency and Duration Frequency of Treatment 1-2x/week Plan of Care Start Date 09/03/22 Plan of Care End Date 12/02/22 Therapeutic Interventions Therapeutic Interventions Aquatic Therapy,Gait Training, Home Exercise Program,Joint Mobilizations,Manual Therapy, Patient/Caregiver Education, Self-Care/Home Management,Soft Tissue Mobilization,Taping, Therapeutic Activities, Therapeutic Exercises Modalities Cold Pack/Ice Massage,Electric Stimulation,Hot Packs, Ultrasound Next Visit Focus/Plan Next Note Type Treatment Note Next Visit Plan Recheck R knee AROM pre/ post tx. continue functional ROM and activities. Review HEP: TB HS, TKE eccentric flexion, ankle/knee mobility at step, gait mechanics. Add DF against TB. Add prone quad stretch w/ Strap POC: Continue proper gait phase patterning and self between txs, try hurdles when able. POC: PROM, stretching, gait training
--- NOTE | 2022-09-03 12:03 | PT.OPPOC ---
Physical, Occupational & Speech Therapy At [facility] Current Diagnoses Stiffness of right knee, not elsewhere classified (09/03/22) Unspecified injury of right lower leg, initial encounter (09/03/22) Unspecified injury of right lower leg, subsequent encounter (09/03/22) Visit Care Team Role Provider Type Doctor Alma, Primary Care Provider Non-Staff Specialty: Medical Address: Phone: Fax: Email: MICHAEL Valladares Attending Provider [employer] Information [employer] Professor Referring Provider Specialty: Emergency Medicine Address: [address] [place] [address], [phone] Email: [email or web address] Plan Of Care PT-OP-T Assessment and Plan Start: 03/11/22 13:49 Freq: Status: Active Protocol: Document 09/03/22 11:20 DCW (Rec: 09/03/22 12:03 DCW [id number]) Physical Therapy Assessment Impairments Impairments Edema,Functional Activities, Functional Mobility,Gait,ROM Goals Two Impairment Pt severely limited R knee flexion limits ambulation ability Group Home Goal (LTG) Pt to improve right knee flexion AROM by at least 40? from 55? to 95? in order to normalize gait pattern and reduce risk for hip and back pain dur to gait disturbance. 05/20/22: No signiifcant AROM 55 deg LTG Duration 12/02/22 Slow progression One Impairment Pt does not have an appropriate home exercise program Short Term Goal (STG) Pt to be independent and compliant with an appropriate HEP STG Duration Met Assessment Summary Assessment Pt continues to progress very slowly, however is making good progress with both passive and active ROM, as well as improved quality of gait. Passive knee flexion improved to 104? today, and active to 88?. Pt will likely benefit from continued skilled therapy focusing on knee strength, stability, ROM, and gait training. Physical Therapy Plan Frequency and Duration Frequency of Treatment 1-2x/week Plan of Care Start Date 09/03/22 Plan of Care End Date 12/02/22 Therapeutic Interventions Therapeutic Interventions Aquatic Therapy,Gait Training, Home Exercise Program,Joint Mobilizations,Manual Therapy, Patient/Caregiver Education, Self-Care/Home Management,Soft Tissue Mobilization,Taping, Therapeutic Activities, Therapeutic Exercises Modalities Cold Pack/Ice Massage,Electric Stimulation,Hot Packs, Ultrasound Next Visit Focus/Plan Next Note Type Treatment Note Next Visit Plan Recheck R knee AROM pre/ post tx. continue functional ROM and activities. Review HEP: TB HS, TKE eccentric flexion, ankle/knee mobility at step, gait mechanics. Add DF against TB. Add prone quad stretch w/ Strap POC: Continue proper gait phase patterning and self between txs, try hurdles when able. POC: PROM, stretching, gait training Plan of Care Dates Plan of Care Start Date 09/03/22 Plan of Care End Date 12/02/22 Electronically Signed by: Km Clark, PT 09/03/22 2678 If you are in agreement with this Plan of Care, please return a signed and dated copy. I have reviewed this Plan of Care and certify that the skilled therapy services above are required to meet the patient?s needs. Physician Signature Date Printed Name and Credentials Clinical Instructor Signature Printed Name and Credentials
--- NOTE | 2022-09-07 13:00 | PT.OTN ---
Current Diagnoses Stiffness of right knee, not elsewhere classified (09/07/22) Unspecified injury of right lower leg, initial encounter (09/07/22) Unspecified injury of right lower leg, subsequent encounter (09/07/22) Physical Therapy Treatment Note PT-OP-A Visit Information Start: 03/11/22 13:49 Freq: Status: Active Protocol: Document 09/07/22 12:16 SP (Rec: 09/07/22 13:04 SP [id number]) Out-Patient Physical Therapy Visit Information Visit Information Visit Type Treatment Note Visit Start Time 12:16 Visit Stop Time 13:00 Total Visit Minutes 44 Visit Number 22 Number of IT DISASTER RECOVERY MANAGER Visits 1 Evaluation Information Evaluation Date 03/11/22 Precautions Precautions IMPRESSION: 1. Subtle oblique tear involving posterior horn of medial meniscus extending to inferior articulating surface. Lateral meniscus is intact. 2. Low-grade MCL sprain. Anterior and posterior cruciate ligaments are intact. 3. Moderate grade sprain/partial-thickness tear involving lateral patellofemoral ligament near patella insertion. Quadriceps tendon and patellar tendon are intact . 4. [id number] tricompartmental osteoarthritis and chondromalacia most notably in medial femoral tibial compartment. Small joint effusion. 5. Nonspecific mild subcutaneous soft tissue edema and small amount of fluid along anterior aspect of patella and patella tendon as above. Per Horacio Rojas M.D. on 04/26/2022 PT-OP-B Current Condition Start: 03/11/22 13:49 Freq: Status: Active Protocol: Document 03/11/22 09:45 DCW (Rec: 03/11/22 14:06 DCW [id number]) Current Condition History of Current Condition Onset Date 11/28/21 Current Complaints Right knee swelling, stiffness History of Current Condition Pt is a 61 year old female presenting to skilled therapy with a three month history of knee swelling and stiffness. Pt reports she tripped and fell on , and as she was holding things at the time, she was unable to catch herself, and fell onto her right knee with her full body weight. Pt reports that she had pretty significant pain for a few weeks, but it is now feeling a lot better. Pt reports that despite it feeling better, it is still swollen and so tight that she struggles to bend it. Pt went to the walk-in clinic one month ago, received x-rays, which were negative, and got referrals to PT and ortho. Admits she has not gone to ortho because they said they were surgeons, and I didn't think it was bad enough that I needed surgery, so I just didn't think I needed to go. Pt presents with a significant R limp due to walking with her knee in full extension at all times. Prior Treatments and Tests R knee x-ray: IMPRESSION: Small joint effusion. 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 Per: Bryce Julien M.D. on 02/09/2022 PT-OP-C Subjective Start: 03/11/22 13:49 Freq: Status: Active Protocol: Document 09/07/22 12:16 SP (Rec: 09/07/22 13:04 SP [id number]) OP-PT Subjective Patient Comments Patient Comments Pt reports felt good after last tx. PT-OP-F Manual Assessment Start: 03/11/22 13:49 Freq: Status: Active Protocol: Document 09/03/22 11:20 DCW (Rec: 09/03/22 11:43 DCW [id number]) Manual Assessments Soft Tissue Assessment Soft Tissue Mobility Assessment Edema has largely improved, slight increase in circumfrential measurements vs left leg Joint Mobility Assessment Joint Mobility Assessment Moderately limited mobility of patella PT-OP-G Mobility & Gait Start: 03/11/22 17:35 Freq: Status: Active Protocol: Document 09/03/22 11:20 DCW (Rec: 09/03/22 11:43 DCW [id number]) OP Gait Assessment Gait Gait Assistance Required: Independent Assistive Devices Assistive Device None Gait Deviations General Gait Pattern Antalgic Factors Limiting Gait Function Factors Limiting Gait Function Limited Range of Motion Comments Gait Comments Pt improving with knee flexion during gait, admits she does need to constantly think about it, or she returns to ambulating with right knee in full extension PT-OP-J Posture/Palpation/Skin Start: 03/11/22 13:49 Freq: Status: Active Protocol: Document 09/03/22 11:20 DCW (Rec: 09/03/22 11:43 DCW [id number]) Skin Assessment Circumference Measurement 10 cm superior to patella Location R leg Measurement (Centimeters) 63.2 Knee joint line Location R joint line Measurement (Centimeters) 51.2 Mid Calf Location R mid calf (9cm inferior patella) Measurement (Centimeters) 49.4 PT-OP-K Range of Motion Start: 03/11/22 13:49 Freq: Status: Active Protocol: Document 09/03/22 11:20 DCW (Rec: 09/03/22 11:43 DCW [id number]) Knee Goniometric Range of Motion Knee Right Knee ROM WFL No Patient Position Sitting Flexion Active (degrees) 88 Flexion Passive (degrees) 96 Extension Active (degrees) 0 Comments PROM in supine: 104 PT-OP-L Special Tests Start: 03/11/22 13:49 Freq: Status: Active Protocol: Document 09/03/22 11:20 DCW (Rec: 09/03/22 11:43 DCW [id number]) Special Tests Knee Special Tests Varus- 0 Degrees Test Results Negative Valgus- 0 Degrees Test Results Negative Posterior Draw Test Results Negative Patella Tap Test Results Negative Elle Test Test Results Negative Gerri's Test Results Negative Anterior Draw Test Results Negative PT-OP-M Strength Start: 03/11/22 13:49 Freq: Status: Active Protocol: Document 09/03/22 11:20 DCW (Rec: 09/03/22 11:43 DCW [id number]) Knee Strength Knee Manual Muscle Testing Right Comments Pt able to hold position against full force with no pain, but unable to move through full flexion PT-OP-Q Treatments Start: 03/11/22 13:49 Freq: Status: Active Protocol: Document 09/07/22 12:16 SP (Rec: 09/07/22 13:04 SP [id number]) Cardio Equipment Recumbent Bicycle Duration (Minutes) 10 Resistance 0 Seat Position in 9> 8> 7 last 2 min Other rocking> little support full revolution F/bwd (90>98deg) Gym Equipment Shuttle Recovery Bilateral Squats Details 103 deg R knee flexion 09/07/22 Resistance 87# (2 new bands) Shuttle Recovery Platform Stable Reps/Time 2-5s hold x10 reps Shuttle Balance Red Details Lateral weight shift Comments 2 min, cued allow Rknee flexion Therapeutic Exercises Sitting Exercises STS Equipment Used mesh chair, arms front Reps/Minutes x10 reps Comments cued hip hinge, scoot forward, L>R LE back, hip hinge/ slow descend Standing Exercises Step-ups Standing Exercise Name Step-ups repeated fwd, lateral RLE no UE support requrired Side right Resistance AROM Equipment Used 6 step, B HR then no HR Reps/Minutes x10 Comments cued allow RLE knee flexion to ascend trail LE Gait Training Gait Activity stairs Description ascend/descend-receiprocal stepping Comments 1. ascend 6 step 2 HR> no HR descend 6 step 2 HR cues slow R knee flexion allowance good form eccentric control 2. 8 step asc/descend Heavy 1- 2 UE, quick descend due to decreased R knee eccentric ROM PT-OP-T Assessment and Plan Start: 03/11/22 13:49 Freq: Status: Active Protocol: Document 09/07/22 12:16 SP (Rec: 09/07/22 13:04 SP [id number]) Physical Therapy Assessment Goals Two Impairment Pt severely limited R knee flexion limits ambulation ability Longterm Goal (LTG) Pt to improve right knee flexion AROM by at least 40? from 55? to 95? in order to normalize gait pattern and reduce risk for hip and back pain dur to gait disturbance. 05/20/22: No signiifcant AROM 55 deg LTG Duration 12/02/22 Slow progression One Impairment Pt does not have an appropriate home exercise program Short Term Goal (STG) Pt to be independent and compliant with an appropriate HEP STG Duration Met Assessment Summary Assessment Pt able to complte full revolutions this tx seat 9>7 improved R knee flexion. IMproved reciprocal stepping w / UE support descend/no UE ascending . Better soft knee normal giat phases leaving. Physical Therapy Plan Frequency and Duration Frequency of Treatment 1-2x/week Plan of Care Start Date 09/03/22 Plan of Care End Date 12/02/22 Therapeutic Interventions Therapeutic Interventions Aquatic Therapy,Gait Training, Home Exercise Program,Joint Mobilizations,Manual Therapy, Patient/Caregiver Education, Self-Care/Home Management,Soft Tissue Mobilization,Taping, Therapeutic Activities, Therapeutic Exercises Modalities Cold Pack/Ice Massage,Electric Stimulation,Hot Packs, Ultrasound Other Referrals/Consults Referrals/Consults Recommended Would strongly recommend advanced imaging prior to return to therapy Next Visit Focus/Plan Next Note Type Treatment Note Next Visit Plan Recheck R knee AROM pre/ post tx. continue functional ROM and activities. Review HEP: TB HS, TKE eccentric flexion, ankle/knee mobility at step, gait mechanics. Add DF against TB. Add prone quad stretch w/ Strap POC: Continue proper gait phase patterning and self between txs, try hurdles when able. POC: PROM, stretching, gait training
--- NOTE | 2022-09-10 13:00 | PT.OTN ---
Current Diagnoses Stiffness of right knee, not elsewhere classified (09/10/22) Unspecified injury of right lower leg, initial encounter (09/10/22) Unspecified injury of right lower leg, subsequent encounter (09/10/22) Physical Therapy Treatment Note PT-OP-A Visit Information Start: 03/11/22 13:49 Freq: Status: Active Protocol: Document 09/10/22 12:17 SP (Rec: 09/10/22 13:04 SP [id number]) Out-Patient Physical Therapy Visit Information Visit Information Visit Type Treatment Note Visit Start Time 12:17 Visit Stop Time 13:00 Total Visit Minutes 42 Visit Number 23 Number of GAME MODERATOR Visits 2 Evaluation Information Evaluation Date 03/11/22 Precautions Precautions IMPRESSION: 1. Subtle oblique tear involving posterior horn of medial meniscus extending to inferior articulating surface. Lateral meniscus is intact. 2. Low-grade MCL sprain. Anterior and posterior cruciate ligaments are intact. 3. Moderate grade sprain/partial-thickness tear involving lateral patellofemoral ligament near patella insertion. Quadriceps tendon and patellar tendon are intact . 4. [id number] tricompartmental osteoarthritis and chondromalacia most notably in medial femoral tibial compartment. Small joint effusion. 5. Nonspecific mild subcutaneous soft tissue edema and small amount of fluid along anterior aspect of patella and patella tendon as above. Per Horacio Rojas M.D. on 04/26/2022 PT-OP-B Current Condition Start: 03/11/22 13:49 Freq: Status: Active Protocol: Document 03/11/22 09:45 DCW (Rec: 03/11/22 14:06 DCW [id number]) Current Condition History of Current Condition Onset Date 11/28/21 Current Complaints Right knee swelling, stiffness History of Current Condition Pt is a 61 year old female presenting to skilled therapy with a three month history of knee swelling and stiffness. Pt reports she tripped and fell on , and as she was holding things at the time, she was unable to catch herself, and fell onto her right knee with her full body weight. Pt reports that she had pretty significant pain for a few weeks, but it is now feeling a lot better. Pt reports that despite it feeling better, it is still swollen and so tight that she struggles to bend it. Pt went to the walk-in clinic one month ago, received x-rays, which were negative, and got referrals to PT and ortho. Admits she has not gone to ortho because they said they were surgeons, and I didn't think it was bad enough that I needed surgery, so I just didn't think I needed to go. Pt presents with a significant R limp due to walking with her knee in full extension at all times. Prior Treatments and Tests R knee x-ray: IMPRESSION: Small joint effusion. 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 Per: Bryce Julien M.D. on 02/09/2022 PT-OP-C Subjective Start: 03/11/22 13:49 Freq: Status: Active Protocol: Document 09/10/22 12:17 SP (Rec: 09/10/22 13:04 SP [id number]) OP-PT Subjective Patient Comments Patient Comments Pt reports still stiff and wish knew why and remember what to do loosend it up as in PT works well. PT-OP-F Manual Assessment Start: 03/11/22 13:49 Freq: Status: Active Protocol: Document 09/03/22 11:20 DCW (Rec: 09/03/22 11:43 DCW [id number]) Manual Assessments Soft Tissue Assessment Soft Tissue Mobility Assessment Edema has largely improved, slight increase in circumfrential measurements vs left leg Joint Mobility Assessment Joint Mobility Assessment Moderately limited mobility of patella PT-OP-G Mobility & Gait Start: 03/11/22 17:35 Freq: Status: Active Protocol: Document 09/03/22 11:20 DCW (Rec: 09/03/22 11:43 DCW [id number]) OP Gait Assessment Gait Gait Assistance Required: Independent Assistive Devices Assistive Device None Gait Deviations General Gait Pattern Antalgic Factors Limiting Gait Function Factors Limiting Gait Function Limited Range of Motion Comments Gait Comments Pt improving with knee flexion during gait, admits she does need to constantly think about it, or she returns to ambulating with right knee in full extension PT-OP-J Posture/Palpation/Skin Start: 03/11/22 13:49 Freq: Status: Active Protocol: Document 09/03/22 11:20 DCW (Rec: 09/03/22 11:43 DCW [id number]) Skin Assessment Circumference Measurement 10 cm superior to patella Location R leg Measurement (Centimeters) 63.2 Knee joint line Location R joint line Measurement (Centimeters) 51.2 Mid Calf Location R mid calf (9cm inferior patella) Measurement (Centimeters) 49.4 PT-OP-K Range of Motion Start: 03/11/22 13:49 Freq: Status: Active Protocol: Document 09/03/22 11:20 DCW (Rec: 09/03/22 11:43 DCW [id number]) Knee Goniometric Range of Motion Knee Right Knee ROM WFL No Patient Position Sitting Flexion Active (degrees) 88 Flexion Passive (degrees) 96 Extension Active (degrees) 0 Comments PROM in supine: 104 PT-OP-L Special Tests Start: 03/11/22 13:49 Freq: Status: Active Protocol: Document 09/03/22 11:20 DCW (Rec: 09/03/22 11:43 DCW [id number]) Special Tests Knee Special Tests Varus- 0 Degrees Test Results Negative Valgus- 0 Degrees Test Results Negative Posterior Draw Test Results Negative Patella Tap Test Results Negative Elle Test Test Results Negative Gerri's Test Results Negative Anterior Draw Test Results Negative PT-OP-M Strength Start: 03/11/22 13:49 Freq: Status: Active Protocol: Document 09/03/22 11:20 DCW (Rec: 09/03/22 11:43 DCW [id number]) Knee Strength Knee Manual Muscle Testing Right Comments Pt able to hold position against full force with no pain, but unable to move through full flexion PT-OP-Q Treatments Start: 03/11/22 13:49 Freq: Status: Active Protocol: Document 09/10/22 12:17 SP (Rec: 09/10/22 13:04 SP [id number]) Cardio Equipment Recumbent Bicycle Duration (Minutes) 12 Resistance 0 Seat Position 9>8>7>6 Other rocking> little support full revolution F/bwd Gym Equipment Shuttle Balance Red Details Fwd/Bwd/ Lateral: WBOS, NBOS, Stagger Reps/Duration 5 Comments wt shift, HTs EC up to 13 sec WBOS Therapeutic Exercises Sitting Exercises Eccentric chair taps Equipment Used rail support Reps/Minutes x10 Comments improved knee flexion, hover chair Standing Exercises lunges Side bilateral Equipment Used rail, chair support Reps/Minutes x10 Comments cued knee with/ behind toe Flexion stretch Standing Exercise Name R knee flexion stretch/lunge Side right Equipment Used 16 box, rail support Reps/Minutes 2 min Comments pre recumbent bike Gait Training Gait Activity ladder drills Description quick lateral stepping Device Used 0 Distance/Duration 30 ft 1 lap (ER hallway) dynamic gait Description ER hallway: Fwd/Bwd, lateral: HTS quick stop, pivot Comments slows pacing small steps during turns stairs Description ascend/descend-receiprocal stepping Distance/Duration 28 stairs, + 14 stairs Comments receiprocal stepping PRN HR, cud slower pacing allow knee flexion/ DF descend, limited range quick descent PT-OP-T Assessment and Plan Start: 03/11/22 13:49 Freq: Status: Active Protocol: Document 09/10/22 12:17 SP (Rec: 09/10/22 13:04 SP [id number]) Physical Therapy Assessment Goals Two Impairment Pt severely limited R knee flexion limits ambulation ability Simulation Analyst Goal (LTG) Pt to improve right knee flexion AROM by at least 40? from 55? to 95? in order to normalize gait pattern and reduce risk for hip and back pain dur to gait disturbance. 05/20/22: No signiifcant AROM 55 deg LTG Duration 12/02/22 Slow progression One Impairment Pt does not have an appropriate home exercise program Short Term Goal (STG) Pt to be independent and compliant with an appropriate HEP STG Duration Met Assessment Summary Assessment Pt responded well to dynamic gait, receiprocal stepping flights stairs no UE support, increased stability near rail and cues for TA slower pacing stance time and JORGE wide needed. Improved normal gait phases end tx. Physical Therapy Plan Frequency and Duration Frequency of Treatment 1-2x/week Plan of Care Start Date 09/03/22 Plan of Care End Date 12/02/22 Therapeutic Interventions Therapeutic Interventions Aquatic Therapy,Gait Training, Home Exercise Program,Joint Mobilizations,Manual Therapy, Patient/Caregiver Education, Self-Care/Home Management,Soft Tissue Mobilization,Taping, Therapeutic Activities, Therapeutic Exercises Modalities Cold Pack/Ice Massage,Electric Stimulation,Hot Packs, Ultrasound Next Visit Focus/Plan Next Note Type Treatment Note Next Visit Plan Recheck R knee AROM pre/ post tx. continue functional ROM and activities. Review HEP: TB HS, TKE eccentric flexion, ankle/knee mobility at step, gait mechanics. Add DF against TB. Add prone quad stretch w/ Strap POC: Continue proper gait phase patterning and self between txs, try hurdles when able. POC: PROM, stretching, gait training
--- NOTE | 2022-09-14 10:30 | PT.OTN ---
Current Diagnoses Stiffness of right knee, not elsewhere classified (09/14/22) Unspecified injury of right lower leg, initial encounter (09/14/22) Unspecified injury of right lower leg, subsequent encounter (09/14/22) Physical Therapy Treatment Note PT-OP-A Visit Information Start: 03/11/22 13:49 Freq: Status: Active Protocol: Document 09/14/22 09:49 DCW (Rec: 09/14/22 10:29 DCW [id number]) Out-Patient Physical Therapy Visit Information Visit Information Visit Type Treatment Note Visit Start Time 09:49 Visit Stop Time 10:30 Total Visit Minutes 41 Visit Number 24 Number of SAP DEVELOPER Visits 0 Evaluation Information Evaluation Date 03/11/22 Precautions Precautions IMPRESSION: 1. Subtle oblique tear involving posterior horn of medial meniscus extending to inferior articulating surface. Lateral meniscus is intact. 2. Low-grade MCL sprain. Anterior and posterior cruciate ligaments are intact. 3. Moderate grade sprain/partial-thickness tear involving lateral patellofemoral ligament near patella insertion. Quadriceps tendon and patellar tendon are intact . 4. [id number] tricompartmental osteoarthritis and chondromalacia most notably in medial femoral tibial compartment. Small joint effusion. 5. Nonspecific mild subcutaneous soft tissue edema and small amount of fluid along anterior aspect of patella and patella tendon as above. Per Horacio Rojas M.D. on 04/26/2022 PT-OP-B Current Condition Start: 03/11/22 13:49 Freq: Status: Active Protocol: Document 03/11/22 09:45 DCW (Rec: 03/11/22 14:06 DCW [id number]) Current Condition History of Current Condition Onset Date 11/28/21 Current Complaints Right knee swelling, stiffness History of Current Condition Pt is a 61 year old female presenting to skilled therapy with a three month history of knee swelling and stiffness. Pt reports she tripped and fell on , and as she was holding things at the time, she was unable to catch herself, and fell onto her right knee with her full body weight. Pt reports that she had pretty significant pain for a few weeks, but it is now feeling a lot better. Pt reports that despite it feeling better, it is still swollen and so tight that she struggles to bend it. Pt went to the walk-in clinic one month ago, received x-rays, which were negative, and got referrals to PT and ortho. Admits she has not gone to ortho because they said they were surgeons, and I didn't think it was bad enough that I needed surgery, so I just didn't think I needed to go. Pt presents with a significant R limp due to walking with her knee in full extension at all times. Prior Treatments and Tests R knee x-ray: IMPRESSION: Small joint effusion. 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 Per: Bryce Julien M.D. on 02/09/2022 PT-OP-C Subjective Start: 03/11/22 13:49 Freq: Status: Active Protocol: Document 09/14/22 09:49 DCW (Rec: 09/14/22 10:29 DCW [id number]) OP-PT Subjective Patient Comments Patient Comments I had one day last week where it didn't really feel stiff at all, but it was just one day, I don't know what the difference was. PT-OP-F Manual Assessment Start: 03/11/22 13:49 Freq: Status: Active Protocol: Document 09/03/22 11:20 DCW (Rec: 09/03/22 11:43 DCW [id number]) Manual Assessments Soft Tissue Assessment Soft Tissue Mobility Assessment Edema has largely improved, slight increase in circumfrential measurements vs left leg Joint Mobility Assessment Joint Mobility Assessment Moderately limited mobility of patella PT-OP-G Mobility & Gait Start: 03/11/22 17:35 Freq: Status: Active Protocol: Document 09/03/22 11:20 DCW (Rec: 09/03/22 11:43 DCW [id number]) OP Gait Assessment Gait Gait Assistance Required: Independent Assistive Devices Assistive Device None Gait Deviations General Gait Pattern Antalgic Factors Limiting Gait Function Factors Limiting Gait Function Limited Range of Motion Comments Gait Comments Pt improving with knee flexion during gait, admits she does need to constantly think about it, or she returns to ambulating with right knee in full extension PT-OP-J Posture/Palpation/Skin Start: 03/11/22 13:49 Freq: Status: Active Protocol: Document 09/03/22 11:20 DCW (Rec: 09/03/22 11:43 DCW [id number]) Skin Assessment Circumference Measurement 10 cm superior to patella Location R leg Measurement (Centimeters) 63.2 Knee joint line Location R joint line Measurement (Centimeters) 51.2 Mid Calf Location R mid calf (9cm inferior patella) Measurement (Centimeters) 49.4 PT-OP-K Range of Motion Start: 03/11/22 13:49 Freq: Status: Active Protocol: Document 09/03/22 11:20 DCW (Rec: 09/03/22 11:43 DCW [id number]) Knee Goniometric Range of Motion Knee Right Knee ROM WFL No Patient Position Sitting Flexion Active (degrees) 88 Flexion Passive (degrees) 96 Extension Active (degrees) 0 Comments PROM in supine: 104 PT-OP-L Special Tests Start: 03/11/22 13:49 Freq: Status: Active Protocol: Document 09/03/22 11:20 DCW (Rec: 09/03/22 11:43 DCW [id number]) Special Tests Knee Special Tests Varus- 0 Degrees Test Results Negative Valgus- 0 Degrees Test Results Negative Posterior Draw Test Results Negative Patella Tap Test Results Negative Elle Test Test Results Negative Gerri's Test Results Negative Anterior Draw Test Results Negative PT-OP-M Strength Start: 03/11/22 13:49 Freq: Status: Active Protocol: Document 09/03/22 11:20 DCW (Rec: 09/03/22 11:43 DCW [id number]) Knee Strength Knee Manual Muscle Testing Right Comments Pt able to hold position against full force with no pain, but unable to move through full flexion PT-OP-Q Treatments Start: 03/11/22 13:49 Freq: Status: Active Protocol: Document 09/14/22 09:49 DCW (Rec: 09/14/22 10:29 DCW [id number]) Cardio Equipment Recumbent Bicycle Duration (Minutes) 10 Resistance 0 Seat Position 7->6->5 Other full revolutions Gym Equipment Shuttle Recovery Bilateral Squats Details 97? R knee flexion 09/14/22 Resistance 100# (1 new bands) Shuttle Recovery Platform Stable Reps/Time 2-5s hold x10 reps Shuttle Balance Red Details Fwd/Bwd/Lateral weight shifts Therapeutic Exercises Standing Exercises Step-ups Standing Exercise Name Step-ups repeated fwd, lateral Side right Resistance AROM Equipment Used 6 step, no HR Reps/Minutes x10 Flexion stretch Standing Exercise Name R knee flexion stretch/lunge Side right Equipment Used 16 box, rail support Reps/Minutes 2 min Manual Therapy Treatment Joint Mobilizations Patella Direction Inferior, superior Grade III Body Position Supine Tibiofemoral Joint R knee Direction AP Grade III Body Position Hooklying PT-OP-T Assessment and Plan Start: 03/11/22 13:49 Freq: Status: Active Protocol: Document 09/14/22 09:49 DCW (Rec: 09/14/22 10:29 DCW [id number]) Physical Therapy Assessment Goals Two Impairment Pt severely limited R knee flexion limits ambulation ability Sales Operations Goal (LTG) Pt to improve right knee flexion AROM by at least 40? from 55? to 95? in order to normalize gait pattern and reduce risk for hip and back pain dur to gait disturbance. 05/20/22: No signiifcant AROM 55 deg LTG Duration 12/02/22 Slow progression One Impairment Pt does not have an appropriate home exercise program Short Term Goal (STG) Pt to be independent and compliant with an appropriate HEP STG Duration Met Assessment Summary Assessment Continues to work hard, improving with ROM, has been getting full rotations on recumbent bike. Seat up closer to pedals than previously, still doing well. Physical Therapy Plan Frequency and Duration Frequency of Treatment 1-2x/week Plan of Care Start Date 09/03/22 Plan of Care End Date 12/02/22 Therapeutic Interventions Therapeutic Interventions Aquatic Therapy,Gait Training, Home Exercise Program,Joint Mobilizations,Manual Therapy, Patient/Caregiver Education, Self-Care/Home Management,Soft Tissue Mobilization,Taping, Therapeutic Activities, Therapeutic Exercises Modalities Cold Pack/Ice Massage,Electric Stimulation,Hot Packs, Ultrasound Next Visit Focus/Plan Next Note Type Treatment Note Next Visit Plan Recheck R knee AROM pre/ post tx. continue functional ROM and activities. Review HEP: TB HS, TKE eccentric flexion, ankle/knee mobility at step, gait mechanics. Add DF against TB. Add prone quad stretch w/ Strap POC: Continue proper gait phase patterning and self between txs, try hurdles when able. POC: PROM, stretching, gait training
--- NOTE | 2022-09-17 09:46 | PT.OTN ---
Current Diagnoses Stiffness of right knee, not elsewhere classified (09/17/22) Unspecified injury of right lower leg, initial encounter (09/17/22) Unspecified injury of right lower leg, subsequent encounter (09/17/22) Physical Therapy Treatment Note PT-OP-A Visit Information Start: 03/11/22 13:49 Freq: Status: Active Protocol: Document 09/17/22 09:01 DCW (Rec: 09/17/22 09:46 DCW [id number]) Out-Patient Physical Therapy Visit Information Visit Information Visit Type Treatment Note Visit Start Time 09:01 Visit Stop Time 09:45 Total Visit Minutes 44 Visit Number 25 Number of EVP Visits 0 Evaluation Information Evaluation Date 03/11/22 Precautions Precautions IMPRESSION: 1. Subtle oblique tear involving posterior horn of medial meniscus extending to inferior articulating surface. Lateral meniscus is intact. 2. Low-grade MCL sprain. Anterior and posterior cruciate ligaments are intact. 3. Moderate grade sprain/partial-thickness tear involving lateral patellofemoral ligament near patella insertion. Quadriceps tendon and patellar tendon are intact . 4. [id number] tricompartmental osteoarthritis and chondromalacia most notably in medial femoral tibial compartment. Small joint effusion. 5. Nonspecific mild subcutaneous soft tissue edema and small amount of fluid along anterior aspect of patella and patella tendon as above. Per Horacio Rojas M.D. on 04/26/2022 PT-OP-B Current Condition Start: 03/11/22 13:49 Freq: Status: Active Protocol: Document 03/11/22 09:45 DCW (Rec: 03/11/22 14:06 DCW [id number]) Current Condition History of Current Condition Onset Date 11/28/21 Current Complaints Right knee swelling, stiffness History of Current Condition Pt is a 61 year old female presenting to skilled therapy with a three month history of knee swelling and stiffness. Pt reports she tripped and fell on , and as she was holding things at the time, she was unable to catch herself, and fell onto her right knee with her full body weight. Pt reports that she had pretty significant pain for a few weeks, but it is now feeling a lot better. Pt reports that despite it feeling better, it is still swollen and so tight that she struggles to bend it. Pt went to the walk-in clinic one month ago, received x-rays, which were negative, and got referrals to PT and ortho. Admits she has not gone to ortho because they said they were surgeons, and I didn't think it was bad enough that I needed surgery, so I just didn't think I needed to go. Pt presents with a significant R limp due to walking with her knee in full extension at all times. Prior Treatments and Tests R knee x-ray: IMPRESSION: Small joint effusion. 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 Per: Bryce Julien M.D. on 02/09/2022 PT-OP-C Subjective Start: 03/11/22 13:49 Freq: Status: Active Protocol: Document 09/17/22 09:01 DCW (Rec: 09/17/22 09:46 DCW [id number]) OP-PT Subjective Patient Comments Patient Comments It's feeling stiff, like normal. PT-OP-F Manual Assessment Start: 03/11/22 13:49 Freq: Status: Active Protocol: Document 09/03/22 11:20 DCW (Rec: 09/03/22 11:43 DCW [id number]) Manual Assessments Soft Tissue Assessment Soft Tissue Mobility Assessment Edema has largely improved, slight increase in circumfrential measurements vs left leg Joint Mobility Assessment Joint Mobility Assessment Moderately limited mobility of patella PT-OP-G Mobility & Gait Start: 03/11/22 17:35 Freq: Status: Active Protocol: Document 09/03/22 11:20 DCW (Rec: 09/03/22 11:43 DCW [id number]) OP Gait Assessment Gait Gait Assistance Required: Independent Assistive Devices Assistive Device None Gait Deviations General Gait Pattern Antalgic Factors Limiting Gait Function Factors Limiting Gait Function Limited Range of Motion Comments Gait Comments Pt improving with knee flexion during gait, admits she does need to constantly think about it, or she returns to ambulating with right knee in full extension PT-OP-J Posture/Palpation/Skin Start: 03/11/22 13:49 Freq: Status: Active Protocol: Document 09/03/22 11:20 DCW (Rec: 09/03/22 11:43 DCW [id number]) Skin Assessment Circumference Measurement 10 cm superior to patella Location R leg Measurement (Centimeters) 63.2 Knee joint line Location R joint line Measurement (Centimeters) 51.2 Mid Calf Location R mid calf (9cm inferior patella) Measurement (Centimeters) 49.4 PT-OP-K Range of Motion Start: 03/11/22 13:49 Freq: Status: Active Protocol: Document 09/03/22 11:20 DCW (Rec: 09/03/22 11:43 DCW [id number]) Knee Goniometric Range of Motion Knee Right Knee ROM WFL No Patient Position Sitting Flexion Active (degrees) 88 Flexion Passive (degrees) 96 Extension Active (degrees) 0 Comments PROM in supine: 104 PT-OP-L Special Tests Start: 03/11/22 13:49 Freq: Status: Active Protocol: Document 09/03/22 11:20 DCW (Rec: 09/03/22 11:43 DCW [id number]) Special Tests Knee Special Tests Varus- 0 Degrees Test Results Negative Valgus- 0 Degrees Test Results Negative Posterior Draw Test Results Negative Patella Tap Test Results Negative Elle Test Test Results Negative Gerri's Test Results Negative Anterior Draw Test Results Negative PT-OP-M Strength Start: 03/11/22 13:49 Freq: Status: Active Protocol: Document 09/03/22 11:20 DCW (Rec: 09/03/22 11:43 DCW [id number]) Knee Strength Knee Manual Muscle Testing Right Comments Pt able to hold position against full force with no pain, but unable to move through full flexion PT-OP-Q Treatments Start: 03/11/22 13:49 Freq: Status: Active Protocol: Document 09/17/22 09:01 DCW (Rec: 09/17/22 09:46 DCW [id number]) Cardio Equipment Recumbent Bicycle Duration (Minutes) 10 Resistance 3 Seat Position 7->6->4 Other full revolutions Gym Equipment Shuttle Recovery Bilateral Squats Details 108? R knee flexion 09/17/22 Resistance 100# (1 new bands) Shuttle Recovery Platform Stable Reps/Time 2-5s hold x10 reps Shuttle Balance Red Details Fwd/Bwd/Lateral weight shifts Therapeutic Exercises Standing Exercises Step-ups Standing Exercise Name Step-ups repeated fwd, lateral Side right Resistance AROM Equipment Used 6 step, no HR Reps/Minutes x10 Flexion stretch Standing Exercise Name R knee flexion stretch/lunge Side right Equipment Used 16 box, rail support Reps/Minutes 2 min Comments pre recumbent bike Manual Therapy Treatment Joint Mobilizations Patella Direction Inferior, superior Grade III Body Position Supine Tibiofemoral Joint R knee Direction AP Grade III Body Position Hooklying PT-OP-T Assessment and Plan Start: 03/11/22 13:49 Freq: Status: Active Protocol: Document 09/17/22 09:01 DCW (Rec: 09/17/22 09:46 DCW [id number]) Physical Therapy Assessment Goals Two Impairment Pt severely limited R knee flexion limits ambulation ability Singing Telegram Performer Goal (LTG) Pt to improve right knee flexion AROM by at least 40? from 55? to 95? in order to normalize gait pattern and reduce risk for hip and back pain dur to gait disturbance. 05/20/22: No signiifcant AROM 55 deg LTG Duration 12/02/22 Slow progression One Impairment Pt does not have an appropriate home exercise program Short Term Goal (STG) Pt to be independent and compliant with an appropriate HEP STG Duration Met Assessment Summary Assessment Pt progressing very well, able to move seat closest that it has been, resulting in improved knee flexion. Joint mobilizations significantly less restricted. Physical Therapy Plan Frequency and Duration Frequency of Treatment 1-2x/week Plan of Care Start Date 09/03/22 Plan of Care End Date 12/02/22 Therapeutic Interventions Therapeutic Interventions Aquatic Therapy,Gait Training, Home Exercise Program,Joint Mobilizations,Manual Therapy, Patient/Caregiver Education, Self-Care/Home Management,Soft Tissue Mobilization,Taping, Therapeutic Activities, Therapeutic Exercises Modalities Cold Pack/Ice Massage,Electric Stimulation,Hot Packs, Ultrasound Next Visit Focus/Plan Next Note Type Treatment Note Next Visit Plan Recheck R knee AROM pre/ post tx. continue functional ROM and activities. Review HEP: TB HS, TKE eccentric flexion, ankle/knee mobility at step, gait mechanics. Add DF against TB. Add prone quad stretch w/ Strap POC: Continue proper gait phase patterning and self between txs, try hurdles when able. POC: PROM, stretching, gait training
--- NOTE | 2022-09-21 09:45 | PT.OTN ---
Current Diagnoses Stiffness of right knee, not elsewhere classified (09/21/22) Unspecified injury of right lower leg, initial encounter (09/21/22) Unspecified injury of right lower leg, subsequent encounter (09/21/22) Physical Therapy Treatment Note PT-OP-A Visit Information Start: 03/11/22 13:49 Freq: Status: Active Protocol: Document 09/21/22 09:03 SP (Rec: 09/21/22 09:48 SP [id number]) Out-Patient Physical Therapy Visit Information Visit Information Visit Type Treatment Note Visit Start Time 09:03 Visit Stop Time 09:45 Total Visit Minutes 42 Visit Number 26 Number of MANAGER [employer]ELOPMENT Visits 1 Evaluation Information Evaluation Date 03/11/22 PT-OP-B Current Condition Start: 03/11/22 13:49 Freq: Status: Active Protocol: Document 03/11/22 09:45 DCW (Rec: 03/11/22 14:06 DCW [id number]) Current Condition History of Current Condition Onset Date 11/28/21 Current Complaints Right knee swelling, stiffness History of Current Condition Pt is a 61 year old female presenting to skilled therapy with a three month history of knee swelling and stiffness. Pt reports she tripped and fell on , and as she was holding things at the time, she was unable to catch herself, and fell onto her right knee with her full body weight. Pt reports that she had pretty significant pain for a few weeks, but it is now feeling a lot better. Pt reports that despite it feeling better, it is still swollen and so tight that she struggles to bend it. Pt went to the walk-in clinic one month ago, received x-rays, which were negative, and got referrals to PT and ortho. Admits she has not gone to ortho because they said they were surgeons, and I didn't think it was bad enough that I needed surgery, so I just didn't think I needed to go. Pt presents with a significant R limp due to walking with her knee in full extension at all times. Prior Treatments and Tests R knee x-ray: IMPRESSION: Small joint effusion. 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 Per: Bryce Julien M.D. on 02/09/2022 PT-OP-C Subjective Start: 03/11/22 13:49 Freq: Status: Active Protocol: Document 09/21/22 09:03 SP (Rec: 09/21/22 09:48 SP [id number]) OP-PT Subjective Patient Comments Patient Comments Pt reported R knee still stiff , but feels less if thinks about it and distracts self, able to walk better on uneven ground if busy doing other things. She wishes had more AROM but continues to be compliant outside PT with what learned to progress. PT-OP-F Manual Assessment Start: 03/11/22 13:49 Freq: Status: Active Protocol: Document 09/03/22 11:20 DCW (Rec: 09/03/22 11:43 DCW [id number]) Manual Assessments Soft Tissue Assessment Soft Tissue Mobility Assessment Edema has largely improved, slight increase in circumfrential measurements vs left leg Joint Mobility Assessment Joint Mobility Assessment Moderately limited mobility of patella PT-OP-G Mobility & Gait Start: 03/11/22 17:35 Freq: Status: Active Protocol: Document 09/03/22 11:20 DCW (Rec: 09/03/22 11:43 DCW [id number]) OP Gait Assessment Gait Gait Assistance Required: Independent Assistive Devices Assistive Device None Gait Deviations General Gait Pattern Antalgic Factors Limiting Gait Function Factors Limiting Gait Function Limited Range of Motion Comments Gait Comments Pt improving with knee flexion during gait, admits she does need to constantly think about it, or she returns to ambulating with right knee in full extension PT-OP-J Posture/Palpation/Skin Start: 03/11/22 13:49 Freq: Status: Active Protocol: Document 09/03/22 11:20 DCW (Rec: 09/03/22 11:43 DCW [id number]) Skin Assessment Circumference Measurement 10 cm superior to patella Location R leg Measurement (Centimeters) 63.2 Knee joint line Location R joint line Measurement (Centimeters) 51.2 Mid Calf Location R mid calf (9cm inferior patella) Measurement (Centimeters) 49.4 PT-OP-K Range of Motion Start: 03/11/22 13:49 Freq: Status: Active Protocol: Document 09/03/22 11:20 DCW (Rec: 09/03/22 11:43 DCW [id number]) Knee Goniometric Range of Motion Knee Right Knee ROM WFL No Patient Position Sitting Flexion Active (degrees) 88 Flexion Passive (degrees) 96 Extension Active (degrees) 0 Comments PROM in supine: 104 PT-OP-L Special Tests Start: 03/11/22 13:49 Freq: Status: Active Protocol: Document 09/03/22 11:20 DCW (Rec: 09/03/22 11:43 DCW [id number]) Special Tests Knee Special Tests Varus- 0 Degrees Test Results Negative Valgus- 0 Degrees Test Results Negative Posterior Draw Test Results Negative Patella Tap Test Results Negative Elle Test Test Results Negative Gerri's Test Results Negative Anterior Draw Test Results Negative PT-OP-M Strength Start: 03/11/22 13:49 Freq: Status: Active Protocol: Document 09/03/22 11:20 DCW (Rec: 09/03/22 11:43 DCW [id number]) Knee Strength Knee Manual Muscle Testing Right Comments Pt able to hold position against full force with no pain, but unable to move through full flexion PT-OP-Q Treatments Start: 03/11/22 13:49 Freq: Status: Active Protocol: Document 09/21/22 09:03 SP (Rec: 09/21/22 09:48 SP [id number]) Gym Equipment Shuttle Recovery heel raises Resistance 100# (1 new band) Shuttle Recovery Platform Stable Reps/Time 2 sec hold x10 reps Bilateral Squats Details 104>107? R knee flexion , cued heel down Resistance 100# (1 new bands) Shuttle Recovery Platform Stable Reps/Time 2-5s hold x15 reps, Therapeutic Exercises Sitting Exercises R knee flexion Side right Resistance TB #2, therapist anchor Equipment Used black mat table (white chair to low and shallow) Reps/Minutes x10 Comments improved HS facilitation and effort into knee flexion, reports less calf Standing Exercises ankle, knee flexion mob Standing Exercise Name dd calf stretch Standing Exercise Name reviewed HEP Side right Resistance contact BHR, bottom step Reps/Minutes 30 x2- improve DF ROM Comments cued tall posture, knee straight tolerant range, cued allow heel sink floor Step-ups Standing Exercise Name Step-ups repeated fwd Side right Resistance AROM Equipment Used BOSU, rail support Reps/Minutes x10 Manual Therapy Treatment Soft Tissue Mobilization quad Body Location R superior patella more medial quad supine, calf & HS prone Mobilization Type Cross-Friction,Myofascial Release,Strumming,Sustained Pressure,Other Intensity/Depth Moderate Comments manual Joint Mobilizations ankle Joint R talocrual Direction AP Grade II Comments during ankle mobility on step and shuttle recovery Patella Direction Inferior, superior Grade II Body Position Supine Tibiofemoral Joint R knee Direction AP Grade II Body Position Supine Reps/Duration 1 min Comments supine:(lower leg supported on therapist thigh) good feedback decrease inside knee tightness and able bend R knee with less restricting feeling up to 112 deg. prone: towel under distal R femur, mobilzation strap at posterior calf, gentle anterior glide of tibia while supporting R knee into flexion PT-OP-T Assessment and Plan Start: 03/11/22 13:49 Freq: Status: Active Protocol: Document 09/21/22 09:03 SP (Rec: 09/21/22 09:48 SP [id number]) Physical Therapy Assessment Goals Two Impairment Pt severely limited R knee flexion limits ambulation ability Mcc Goal (LTG) Pt to improve right knee flexion AROM by at least 40? from 55? to 95? in order to normalize gait pattern and reduce risk for hip and back pain dur to gait disturbance. 05/20/22: No signiifcant AROM 55 deg LTG Duration 12/02/22 Slow progression One Impairment Pt does not have an appropriate home exercise program Short Term Goal (STG) Pt to be independent and compliant with an appropriate HEP STG Duration Met Assessment Summary Assessment Pt reported less inside R knee jt tightness post AP tibofemoral glide, progressed to 112 deg knee flexion AROM end tx. Suggested continue calf and knee mobility on step ROM to progress and distractions during gait to allow normal ROM/ patterning phases. Physical Therapy Plan Frequency and Duration Frequency of Treatment 1-2x/week Plan of Care Start Date 09/03/22 Plan of Care End Date 12/02/22 Therapeutic Interventions Therapeutic Interventions Aquatic Therapy,Gait Training, Home Exercise Program,Joint Mobilizations,Manual Therapy, Patient/Caregiver Education, Self-Care/Home Management,Soft Tissue Mobilization,Taping, Therapeutic Activities, Therapeutic Exercises Modalities Cold Pack/Ice Massage,Electric Stimulation,Hot Packs, Ultrasound Other Referrals/Consults Referrals/Consults Recommended Would strongly recommend advanced imaging prior to return to therapy Next Visit Focus/Plan Next Note Type Treatment Note Next Visit Plan Recheck R knee AROM pre/ post tx. continue functional ROM and activities. Review HEP: TB HS, TKE eccentric flexion, ankle/knee mobility at step, gait mechanics. Add DF against TB. Add prone quad stretch w/ Strap POC: Continue proper gait phase patterning and self between txs, try hurdles when able. POC: PROM, stretching, gait training
--- NOTE | 2022-09-24 09:45 | PT.OTN ---
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 Pt reports she tripped and fell on , and as she was holding things at the time, she was unable to catch herself, and fell onto her right knee with her full body weight. Pt reports that she had pretty significant pain for a few weeks, but it is now feeling a lot better. Pt reports that despite it feeling better, it is still swollen and so tight that she struggles to bend it. Pt went to the walk-in clinic one month ago, received x-rays, which were negative, and got referrals to PT and ortho. Admits she has not gone to ortho because they said they were surgeons, and I didn't think it was bad enough that I needed surgery, so I just didn't think I needed to go. Pt presents with a significant R limp due to walking with her knee in full extension at all times. Prior Treatments and Tests R knee x-ray: IMPRESSION: Small joint effusion. 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 Per: Bryce Julien M.D. on 02/09/2022 PT-OP-C Subjective Start: 03/11/22 13:49 Freq: Status: Active Protocol: Document 09/24/22 09:02 DCW (Rec: 09/24/22 09:45 DCW [id number]) OP-PT Subjective Patient Comments Patient Comments Pt reports her knee has begun popping randomly throughout the day, no associated pain. PT-OP-F Manual Assessment Start: 03/11/22 13:49 Freq: Status: Active Protocol: Document 09/03/22 11:20 DCW (Rec: 09/03/22 11:43 DCW [id number]) Manual Assessments Soft Tissue Assessment Soft Tissue Mobility Assessment Edema has largely improved, slight increase in circumfrential measurements vs left leg Joint Mobility Assessment Joint Mobility Assessment Moderately limited mobility of patella PT-OP-G Mobility & Gait Start: 03/11/22 17:35 Freq: Status: Active Protocol: Document 09/03/22 11:20 DCW (Rec: 09/03/22 11:43 DCW [id number]) OP Gait Assessment Gait Gait Assistance Required: Independent Assistive Devices Assistive Device None Gait Deviations General Gait Pattern Antalgic Factors Limiting Gait Function Factors Limiting Gait Function Limited Range of Motion Comments Gait Comments Pt improving with knee flexion during gait, admits she does need to constantly think about it, or she returns to ambulating with right knee in full extension PT-OP-J Posture/Palpation/Skin Start: 03/11/22 13:49 Freq: Status: Active Protocol: Document 09/03/22 11:20 DCW (Rec: 09/03/22 11:43 DCW [id number]) Skin Assessment Circumference Measurement 10 cm superior to patella Location R leg Measurement (Centimeters) 63.2 Knee joint line Location R joint line Measurement (Centimeters) 51.2 Mid Calf Location R mid calf (9cm inferior patella) Measurement (Centimeters) 49.4 PT-OP-K Range of Motion Start: 03/11/22 13:49 Freq: Status: Active Protocol: Document 09/03/22 11:20 DCW (Rec: 09/03/22 11:43 DCW [id number]) Knee Goniometric Range of Motion Knee Right Knee ROM WFL No Patient Position Sitting Flexion Active (degrees) 88 Flexion Passive (degrees) 96 Extension Active (degrees) 0 Comments PROM in supine: 104 PT-OP-L Special Tests Start: 03/11/22 13:49 Freq: Status: Active Protocol: Document 03/03/23 11:20 DCW (Rec: 09/03/22 11:43 DCW [id number]) Special Tests Knee Special Tests Varus- 0 Degrees Test Results Negative Valgus- 0 Degrees Test Results Negative Posterior Draw Test Results Negative Patella Tap Test Results Negative Elle Test Test Results Negative Gerri's Test Results Negative Anterior Draw Test Results Negative PT-OP-M Strength Start: 03/11/22 13:49 Freq: Status: Active Protocol: Document 09/03/22 11:20 DCW (Rec: 09/03/22 11:43 DCW [id number]) Knee Strength Knee Manual Muscle Testing Right Comments Pt able to hold position against full force with no pain, but unable to move through full flexion PT-OP-Q Treatments Start: 03/11/22 13:49 Freq: Status: Active Protocol: Document 09/24/22 09:02 DCW (Rec: 09/24/22 09:45 DCW [id number]) Cardio Equipment Recumbent Bicycle Duration (Minutes) 10 Resistance 3 Seat Position 5->4 Other full revolutions Gym Equipment Shuttle Recovery Bilateral Squats Details 107? R knee flexion 09/24/22 Resistance 100# (1 new band) Shuttle Recovery Platform Stable Reps/Time 2-5s hold x15 reps, Shuttle Balance Red Details Fwd/Bwd/Lateral weight shifts Therapeutic Exercises Standing Exercises Flexion stretch Standing Exercise Name R knee flexion stretch/lunge Side right Equipment Used 16 box, rail support Reps/Minutes 2 min Comments pre recumbent bike Manual Therapy Treatment Joint Mobilizations Patella Direction Inferior, superior Grade III Body Position Supine Tibiofemoral Joint R knee Direction AP Grade III Body Position Hooklying PT-OP-T Assessment and Plan Start: 03/11/22 13:49 Freq: Status: Active Protocol: Document 09/24/22 09:02 DCW (Rec: 09/24/22 09:45 DCW [id number]) Physical Therapy Assessment Goals Two Impairment Pt severely limited R knee flexion limits ambulation ability Snf Goal (LTG) Pt to improve right knee flexion AROM by at least 40? from 55? to 95? in order to normalize gait pattern and reduce risk for hip and back pain dur to gait disturbance. 05/20/22: No signiifcant AROM 55 deg LTG Duration 12/02/22 Slow progression One Impairment Pt does not have an appropriate home exercise program Short Term Goal (STG) Pt to be independent and compliant with an appropriate HEP STG Duration Met Assessment Summary Assessment Pt noted increased left ankle pain following her last visit, requested to limit ankle activities today. Otherwise tolerated treatment very well today, continues to slowly progress knee ROM. Physical Therapy Plan Frequency and Duration Frequency of Treatment 1-2x/week Plan of Care Start Date 09/03/22 Plan of Care End Date 12/02/22 Therapeutic Interventions Therapeutic Interventions Aquatic Therapy,Gait Training, Home Exercise Program,Joint Mobilizations,Manual Therapy, Patient/Caregiver Education, Self-Care/Home Management,Soft Tissue Mobilization,Taping, Therapeutic Activities, Therapeutic Exercises Modalities Cold Pack/Ice Massage,Electric Stimulation,Hot Packs, Ultrasound Next Visit Focus/Plan Next Note Type Treatment Note Next Visit Plan Recheck R knee AROM pre/ post tx. continue functional ROM and activities. Review HEP: TB HS, TKE eccentric flexion, ankle/knee mobility at step, gait mechanics. Add DF against TB. Add prone quad stretch w/ Strap POC: Continue proper gait phase patterning and self between txs, try hurdles when able. POC: PROM, stretching, gait training
--- NOTE | 2022-09-28 10:28 | PT.OTN ---
Current Diagnoses Stiffness of right knee, not elsewhere classified (09/28/22) Unspecified injury of right lower leg, initial encounter (09/28/22) Unspecified injury of right lower leg, subsequent encounter (09/28/22) Physical Therapy Treatment Note PT-OP-A Visit Information Start: 03/11/22 13:49 Freq: Status: Active Protocol: Document 09/28/22 09:49 SP (Rec: 09/28/22 10:33 SP [id number]) Out-Patient Physical Therapy Visit Information Visit Information Visit Type Treatment Note Visit Start Time 09:49 Visit Stop Time 10:28 Total Visit Minutes 39 Visit Number 28 Number of MANAGER PSYCHIATRY Visits 1 Evaluation Information Evaluation Date 03/11/22 Precautions Precautions IMPRESSION: 1. Subtle oblique tear involving posterior horn of medial meniscus extending to inferior articulating surface. Lateral meniscus is intact. 2. Low-grade MCL sprain. Anterior and posterior cruciate ligaments are intact. 3. Moderate grade sprain/partial-thickness tear involving lateral patellofemoral ligament near patella insertion. Quadriceps tendon and patellar tendon are intact . 4. [id number] tricompartmental osteoarthritis and chondromalacia most notably in medial femoral tibial compartment. Small joint effusion. 5. Nonspecific mild subcutaneous soft tissue edema and small amount of fluid along anterior aspect of patella and patella tendon as above. Per Horacio Rojas M.D. on 04/26/2022 PT-OP-B Current Condition Start: 03/11/22 13:49 Freq: Status: Active Protocol: Document 03/11/22 09:45 DCW (Rec: 03/11/22 14:06 DCW [id number]) Current Condition History of Current Condition Onset Date 11/28/21 Current Complaints Right knee swelling, stiffness History of Current Condition Pt is a 61 year old female presenting to skilled therapy with a three month history of knee swelling and stiffness. Pt reports she tripped and fell on , and as she was holding things at the time, she was unable to catch herself, and fell onto her right knee with her full body weight. Pt reports that she had pretty significant pain for a few weeks, but it is now feeling a lot better. Pt reports that despite it feeling better, it is still swollen and so tight that she struggles to bend it. Pt went to the walk-in clinic one month ago, received x-rays, which were negative, and got referrals to PT and ortho. Admits she has not gone to ortho because they said they were surgeons, and I didn't think it was bad enough that I needed surgery, so I just didn't think I needed to go. Pt presents with a significant R limp due to walking with her knee in full extension at all times. Prior Treatments and Tests R knee x-ray: IMPRESSION: Small joint effusion. 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 Per: Bryce Julien M.D. on 02/09/2022 PT-OP-C Subjective Start: 03/11/22 13:49 Freq: Status: Active Protocol: Document 09/28/22 09:49 SP (Rec: 09/28/22 10:33 SP [id number]) OP-PT Subjective Patient Comments Patient Comments Pt reports her calf and R knee hurting walking around the other day. PT-OP-F Manual Assessment Start: 03/11/22 13:49 Freq: Status: Active Protocol: Document 09/03/22 11:20 DCW (Rec: 09/03/22 11:43 DCW [id number]) Manual Assessments Soft Tissue Assessment Soft Tissue Mobility Assessment Edema has largely improved, slight increase in circumfrential measurements vs left leg Joint Mobility Assessment Joint Mobility Assessment Moderately limited mobility of patella PT-OP-G Mobility & Gait Start: 03/11/22 17:35 Freq: Status: Active Protocol: Document 09/03/22 11:20 DCW (Rec: 09/03/22 11:43 DCW [id number]) OP Gait Assessment Gait Gait Assistance Required: Independent Assistive Devices Assistive Device None Gait Deviations General Gait Pattern Antalgic Factors Limiting Gait Function Factors Limiting Gait Function Limited Range of Motion Comments Gait Comments Pt improving with knee flexion during gait, admits she does need to constantly think about it, or she returns to ambulating with right knee in full extension PT-OP-J Posture/Palpation/Skin Start: 03/11/22 13:49 Freq: Status: Active Protocol: Document 09/03/22 11:20 DCW (Rec: 09/03/22 11:43 DCW [id number]) Skin Assessment Circumference Measurement 10 cm superior to patella Location R leg Measurement (Centimeters) 63.2 Knee joint line Location R joint line Measurement (Centimeters) 51.2 Mid Calf Location R mid calf (9cm inferior patella) Measurement (Centimeters) 49.4 PT-OP-K Range of Motion Start: 03/11/22 13:49 Freq: Status: Active Protocol: Document 09/03/22 11:20 DCW (Rec: 09/03/22 11:43 DCW [id number]) Knee Goniometric Range of Motion Knee Right Knee ROM WFL No Patient Position Sitting Flexion Active (degrees) 88 Flexion Passive (degrees) 96 Extension Active (degrees) 0 Comments PROM in supine: 104 PT-OP-L Special Tests Start: 03/11/22 13:49 Freq: Status: Active Protocol: Document 09/03/22 11:20 DCW (Rec: 09/03/22 11:43 DCW [id number]) Special Tests Knee Special Tests Varus- 0 Degrees Test Results Negative Valgus- 0 Degrees Test Results Negative Posterior Draw Test Results Negative Patella Tap Test Results Negative Elle Test Test Results Negative Gerri's Test Results Negative Anterior Draw Test Results Negative PT-OP-M Strength Start: 03/11/22 13:49 Freq: Status: Active Protocol: Document 09/03/22 11:20 DCW (Rec: 09/03/22 11:43 DCW [id number]) Knee Strength Knee Manual Muscle Testing Right Comments Pt able to hold position against full force with no pain, but unable to move through full flexion PT-OP-Q Treatments Start: 03/11/22 13:49 Freq: Status: Active Protocol: Document 09/28/22 09:49 SP (Rec: 09/28/22 10:33 SP [id number]) Cardio Equipment Recumbent Bicycle Duration (Minutes) 8 Resistance 4 Seat Position 6>5->4, 1.98 miles Other rocked couple reps then full revolutions, ankle DF ROM Gym Equipment Cable Column (Body Solid) Leg ext Resistance 2# Reps/Time distal quad/patellar tendon pain so stopped HS curl Resistance 4# Reps/Time cued slow con/ecc painfree ROM Shuttle Balance Red Details WBOS, NBOS, stagger Reps/Duration 8 min Comments 1. wt shift 2. HTs 3. EC: 23 sec WBOS, 6 sec NBOS , 3 sec stagger (F/B) Therapeutic Exercises Standing Exercises ankle, knee flexion mob Standing Exercise Name warm up Resistance AAROM Equipment Used 16 box Reps/Minutes x10 reps Neuro Re-Education Treatment Balance Activities shan stepping Details 4 hurdles, 4 cushion ovals, 3 pods Equipment //bars Comments challenged decreased strength and AROM, compensated hip hike , improved less circumduction w/ increase uneven surface, cued slower stepping scap complex/TA fac tall over SLS PT-OP-T Assessment and Plan Start: 03/11/22 13:49 Freq: Status: Active Protocol: Document 09/28/22 09:49 SP (Rec: 09/28/22 10:33 SP [id number]) Physical Therapy Assessment Goals Two Impairment Pt severely limited R knee flexion limits ambulation ability Nursing Home Goal (LTG) Pt to improve right knee flexion AROM by at least 40? from 55? to 95? in order to normalize gait pattern and reduce risk for hip and back pain dur to gait disturbance. 05/20/22: No signiifcant AROM 55 deg LTG Duration 12/02/22 Slow progression One Impairment Pt does not have an appropriate home exercise program Short Term Goal (STG) Pt to be independent and compliant with an appropriate HEP STG Duration Met Assessment Summary Assessment Pt improved ROM R knee uneven surface, SLS time with cues for allow COG over stance LE, with cues core fac. Pt able to complete some time EC WBOS/ NBOS and uneven surface mobility //bars as needed for support. Physical Therapy Plan Frequency and Duration Frequency of Treatment 1-2x/week Plan of Care Start Date 09/03/22 Plan of Care End Date 12/02/22 Therapeutic Interventions Therapeutic Interventions Aquatic Therapy,Gait Training, Home Exercise Program,Joint Mobilizations,Manual Therapy, Patient/Caregiver Education, Self-Care/Home Management,Soft Tissue Mobilization,Taping, Therapeutic Activities, Therapeutic Exercises Modalities Cold Pack/Ice Massage,Electric Stimulation,Hot Packs, Ultrasound Next Visit Focus/Plan Next Note Type Treatment Note Next Visit Plan Recheck R knee AROM pre/ post tx. continue functional ROM and activities. Review HEP: TB HS, TKE eccentric flexion, ankle/knee mobility at step, gait mechanics. Add DF against TB. Add prone quad stretch w/ Strap POC: Continue proper gait phase patterning and self between txs, try hurdles when able. POC: PROM, stretching, gait training
--- NOTE | 2022-10-01 10:32 | PT.OTN ---
Current Diagnoses Stiffness of right knee, not elsewhere classified (10/01/22) Unspecified injury of right lower leg, initial encounter (10/01/22) Unspecified injury of right lower leg, subsequent encounter (10/01/22) Physical Therapy Treatment Note PT-OP-A Visit Information Start: 03/11/22 13:49 Freq: Status: Active Protocol: Document 10/01/22 09:52 DCW (Rec: 10/01/22 10:29 DCW [id number]) Out-Patient Physical Therapy Visit Information Visit Information Visit Type Treatment Note Visit Start Time 09:52 Visit Stop Time 10:30 Total Visit Minutes 38 Visit Number 29 Number of PATIENT CASE MANAGER Visits 0 Evaluation Information Evaluation Date 03/11/22 Precautions Precautions IMPRESSION: 1. Subtle oblique tear involving posterior horn of medial meniscus extending to inferior articulating surface. Lateral meniscus is intact. 2. Low-grade MCL sprain. Anterior and posterior cruciate ligaments are intact. 3. Moderate grade sprain/partial-thickness tear involving lateral patellofemoral ligament near patella insertion. Quadriceps tendon and patellar tendon are intact . 4. Jikx-qa-[id number] tricompartmental osteoarthritis and chondromalacia most notably in medial femoral tibial compartment. Small joint effusion. 5. Nonspecific mild subcutaneous soft tissue edema and small amount of fluid along anterior aspect of patella and patella tendon as above. Per Horacio Rojas M.D. on 04/26/2022 PT-OP-B Current Condition Start: 03/11/22 13:49 Freq: Status: Active Protocol: Document 03/11/22 09:45 DCW (Rec: 03/11/22 14:06 DCW [id number]) Current Condition History of Current Condition Onset Date 11/28/21 Current Complaints Right knee swelling, stiffness History of Current Condition Pt is a 61 year old female presenting to skilled therapy with a three month history of knee swelling and stiffness. Pt reports she tripped and fell on , and as she was holding things at the time, she was unable to catch herself, and fell onto her right knee with her full body weight. Pt reports that she had pretty significant pain for a few weeks, but it is now feeling a lot better. Pt reports that despite it feeling better, it is still swollen and so tight that she struggles to bend it. Pt went to the walk-in clinic one month ago, received x-rays, which were negative, and got referrals to PT and ortho. Admits she has not gone to ortho because they said they were surgeons, and I didn't think it was bad enough that I needed surgery, so I just didn't think I needed to go. Pt presents with a significant R limp due to walking with her knee in full extension at all times. Prior Treatments and Tests R knee x-ray: IMPRESSION: Small joint effusion. 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 Per: Bryce Julien M.D. on 02/09/2022 PT-OP-C Subjective Start: 03/11/22 13:49 Freq: Status: Active Protocol: Document 10/01/22 09:52 DCW (Rec: 10/01/22 10:29 DCW [id number]) OP-PT Subjective Patient Comments Patient Comments It feels stiff, but I've been jumping around doing stupid stuff all week, doing a lot of projects. PT-OP-F Manual Assessment Start: 03/11/22 13:49 Freq: Status: Active Protocol: Document 09/03/22 11:20 DCW (Rec: 09/03/22 11:43 DCW [id number]) Manual Assessments Soft Tissue Assessment Soft Tissue Mobility Assessment Edema has largely improved, slight increase in circumfrential measurements vs left leg Joint Mobility Assessment Joint Mobility Assessment Moderately limited mobility of patella PT-OP-G Mobility & Gait Start: 03/11/22 17:35 Freq: Status: Active Protocol: Document 09/03/22 11:20 DCW (Rec: 09/03/22 11:43 DCW [id number]) OP Gait Assessment Gait Gait Assistance Required: Independent Assistive Devices Assistive Device None Gait Deviations General Gait Pattern Antalgic Factors Limiting Gait Function Factors Limiting Gait Function Limited Range of Motion Comments Gait Comments Pt improving with knee flexion during gait, admits she does need to constantly think about it, or she returns to ambulating with right knee in full extension PT-OP-J Posture/Palpation/Skin Start: 03/11/22 13:49 Freq: Status: Active Protocol: Document 09/03/22 11:20 DCW (Rec: 09/03/22 11:43 DCW [id number]) Skin Assessment Circumference Measurement 10 cm superior to patella Location R leg Measurement (Centimeters) 63.2 Knee joint line Location R joint line Measurement (Centimeters) 51.2 Mid Calf Location R mid calf (9cm inferior patella) Measurement (Centimeters) 49.4 PT-OP-K Range of Motion Start: 03/11/22 13:49 Freq: Status: Active Protocol: Document 09/03/22 11:20 DCW (Rec: 09/03/22 11:43 DCW [id number]) Knee Goniometric Range of Motion Knee Right Knee ROM WFL No Patient Position Sitting Flexion Active (degrees) 88 Flexion Passive (degrees) 96 Extension Active (degrees) 0 Comments PROM in supine: 104 PT-OP-L Special Tests Start: 03/11/22 13:49 Freq: Status: Active Protocol: Document 09/03/22 11:20 DCW (Rec: 09/03/22 11:43 DCW [id number]) Special Tests Knee Special Tests Varus- 0 Degrees Test Results Negative Valgus- 0 Degrees Test Results Negative Posterior Draw Test Results Negative Patella Tap Test Results Negative Elle Test Test Results Negative Gerri's Test Results Negative Anterior Draw Test Results Negative PT-OP-M Strength Start: 03/11/22 13:49 Freq: Status: Active Protocol: Document 09/03/22 11:20 DCW (Rec: 09/03/22 11:43 DCW [id number]) Knee Strength Knee Manual Muscle Testing Right Comments Pt able to hold position against full force with no pain, but unable to move through full flexion PT-OP-Q Treatments Start: 03/11/22 13:49 Freq: Status: Active Protocol: Document 10/01/22 09:52 DCW (Rec: 10/01/22 10:29 DCW [id number]) Cardio Equipment Recumbent Bicycle Duration (Minutes) 8 Resistance 4 Seat Position 5->4 Gym Equipment Shuttle Recovery Bilateral Squats Details 109? R knee flexion 10/01/22 Resistance 100# (1 new band) Shuttle Recovery Platform Stable Reps/Time 2-5s hold x15 reps, Shuttle Balance Red Details Fwd/Bwd/Lateral weight shifts Therapeutic Exercises Standing Exercises Flexion stretch Standing Exercise Name R knee flexion stretch/lunge Side right Equipment Used 16 box, rail support Reps/Minutes 2 min Comments pre recumbent bike Manual Therapy Treatment Joint Mobilizations Patella Direction Inferior, superior Grade III Body Position Supine Tibiofemoral Joint R knee Direction AP Grade III Body Position Hooklying PT-OP-T Assessment and Plan Start: 03/11/22 13:49 Freq: Status: Active Protocol: Document 10/01/22 09:52 DCW (Rec: 10/01/22 10:29 DCW [id number]) Physical Therapy Assessment Goals Two Impairment Pt severely limited R knee flexion limits ambulation ability Detention Goal (LTG) Pt to improve right knee flexion AROM by at least 40? from 55? to 95? in order to normalize gait pattern and reduce risk for hip and back pain dur to gait disturbance. 05/20/22: No signiifcant AROM 55 deg LTG Duration 12/02/22 Slow progression One Impairment Pt does not have an appropriate home exercise program Short Term Goal (STG) Pt to be independent and compliant with an appropriate HEP STG Duration Met Assessment Summary Assessment Pt continues to slowly progress ROM, measured today at 109?. Pt continues to note minimal pain, mainly just intense feelings of stiffness. Continues to improve with home activities. Physical Therapy Plan Frequency and Duration Frequency of Treatment 1-2x/week Plan of Care Start Date 09/03/22 Plan of Care End Date 12/02/22 Therapeutic Interventions Therapeutic Interventions Aquatic Therapy,Gait Training, Home Exercise Program,Joint Mobilizations,Manual Therapy, Patient/Caregiver Education, Self-Care/Home Management,Soft Tissue Mobilization,Taping, Therapeutic Activities, Therapeutic Exercises Modalities Cold Pack/Ice Massage,Electric Stimulation,Hot Packs, Ultrasound Next Visit Focus/Plan Next Note Type Treatment Note Next Visit Plan Recheck R knee AROM pre/ post tx. continue functional ROM and activities. Review HEP: TB HS, TKE eccentric flexion, ankle/knee mobility at step, gait mechanics. Add DF against TB. Add prone quad stretch w/ Strap POC: Continue proper gait phase patterning and self between txs, try hurdles when able. POC: PROM, stretching, gait training
--- NOTE | 2022-10-08 09:42 | PT.OTN ---
Current Diagnoses Stiffness of right knee, not elsewhere classified (10/08/22) Unspecified injury of right lower leg, initial encounter (10/08/22) Unspecified injury of right lower leg, subsequent encounter (10/08/22) Physical Therapy Treatment Note PT-OP-A Visit Information Start: 03/11/22 13:49 Freq: Status: Active Protocol: Document 10/08/22 09:02 DCW (Rec: 10/08/22 09:42 DCW [id number]) Out-Patient Physical Therapy Visit Information Visit Information Visit Type Treatment Note Visit Start Time 09:02 Visit Stop Time 09:45 Total Visit Minutes 43 Visit Number 30 Number of BURN CENTER NURSE Visits 0 Evaluation Information Evaluation Date 03/11/22 Precautions Precautions IMPRESSION: 1. Subtle oblique tear involving posterior horn of medial meniscus extending to inferior articulating surface. Lateral meniscus is intact. 2. Low-grade MCL sprain. Anterior and posterior cruciate ligaments are intact. 3. Moderate grade sprain/partial-thickness tear involving lateral patellofemoral ligament near patella insertion. Quadriceps tendon and patellar tendon are intact . 4. Cqdy-rr-hvbojrsv tricompartmental osteoarthritis and chondromalacia most notably in medial femoral tibial compartment. Small joint effusion. 5. Nonspecific mild subcutaneous soft tissue edema and small amount of fluid along anterior aspect of patella and patella tendon as above. Per Horacio Rojas M.D. on 04/26/2022 PT-OP-B Current Condition Start: 03/11/22 13:49 Freq: Status: Active Protocol: Document 03/11/22 09:45 DCW (Rec: 03/11/22 14:06 DCW [id number]) Current Condition History of Current Condition Onset Date 11/28/21 Current Complaints Right knee swelling, stiffness History of Current Condition Pt is a 61 year old female presenting to skilled therapy with a three month history of knee swelling and stiffness. Pt reports she tripped and fell on , and as she was holding things at the time, she was unable to catch herself, and fell onto her right knee with her full body weight. Pt reports that she had pretty significant pain for a few weeks, but it is now feeling a lot better. Pt reports that despite it feeling better, it is still swollen and so tight that she struggles to bend it. Pt went to the walk-in clinic one month ago, received x-rays, which were negative, and got referrals to PT and ortho. Admits she has not gone to ortho because they said they were surgeons, and I didn't think it was bad enough that I needed surgery, so I just didn't think I needed to go. Pt presents with a significant R limp due to walking with her knee in full extension at all times. Prior Treatments and Tests R knee x-ray: IMPRESSION: Small joint effusion. 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 Per: Bryce Julien M.D. on 02/09/2022 PT-OP-C Subjective Start: 03/11/22 13:49 Freq: Status: Active Protocol: Document 10/08/22 09:02 DCW (Rec: 10/08/22 09:42 DCW [id number]) OP-PT Subjective Patient Comments Patient Comments I've been basically glued to my desk all week, so that hasn 't helped with the stiffness. PT-OP-F Manual Assessment Start: 03/11/22 13:49 Freq: Status: Active Protocol: Document 09/03/22 11:20 DCW (Rec: 09/03/22 11:43 DCW [id number]) Manual Assessments Soft Tissue Assessment Soft Tissue Mobility Assessment Edema has largely improved, slight increase in circumfrential measurements vs left leg Joint Mobility Assessment Joint Mobility Assessment Moderately limited mobility of patella PT-OP-G Mobility & Gait Start: 03/11/22 17:35 Freq: Status: Active Protocol: Document 09/03/22 11:20 DCW (Rec: 09/03/22 11:43 DCW [id number]) OP Gait Assessment Gait Gait Assistance Required: Independent Assistive Devices Assistive Device None Gait Deviations General Gait Pattern Antalgic Factors Limiting Gait Function Factors Limiting Gait Function Limited Range of Motion Comments Gait Comments Pt improving with knee flexion during gait, admits she does need to constantly think about it, or she returns to ambulating with right knee in full extension PT-OP-J Posture/Palpation/Skin Start: 03/11/22 13:49 Freq: Status: Active Protocol: Document 09/03/22 11:20 DCW (Rec: 09/03/22 11:43 DCW [id number]) Skin Assessment Circumference Measurement 10 cm superior to patella Location R leg Measurement (Centimeters) 63.2 Knee joint line Location R joint line Measurement (Centimeters) 51.2 Mid Calf Location R mid calf (9cm inferior patella) Measurement (Centimeters) 49.4 PT-OP-K Range of Motion Start: 03/11/22 13:49 Freq: Status: Active Protocol: Document 09/03/22 11:20 DCW (Rec: 09/03/22 11:43 DCW [id number]) Knee Goniometric Range of Motion Knee Right Knee ROM WFL No Patient Position Sitting Flexion Active (degrees) 88 Flexion Passive (degrees) 96 Extension Active (degrees) 0 Comments PROM in supine: 104 PT-OP-L Special Tests Start: 03/11/22 13:49 Freq: Status: Active Protocol: Document 09/03/22 11:20 DCW (Rec: 09/03/22 11:43 DCW [id number]) Special Tests Knee Special Tests Varus- 0 Degrees Test Results Negative Valgus- 0 Degrees Test Results Negative Posterior Draw Test Results Negative Patella Tap Test Results Negative Elle Test Test Results Negative Gerri's Test Results Negative Anterior Draw Test Results Negative PT-OP-M Strength Start: 03/11/22 13:49 Freq: Status: Active Protocol: Document 09/03/22 11:20 DCW (Rec: 09/03/22 11:43 DCW [id number]) Knee Strength Knee Manual Muscle Testing Right Comments Pt able to hold position against full force with no pain, but unable to move through full flexion PT-OP-Q Treatments Start: 03/11/22 13:49 Freq: Status: Active Protocol: Document 10/08/22 09:02 DCW (Rec: 10/08/22 09:42 DCW [id number]) Cardio Equipment Recumbent Bicycle Duration (Minutes) 8 Resistance 4 Seat Position 6->5->4 Gym Equipment Shuttle Recovery Bilateral Squats Details 110? R knee flexion 10/08/22 Resistance 100# (1 new band) Shuttle Recovery Platform Stable Reps/Time 2-5s hold x15 reps, Shuttle Balance Red Details Fwd/Bwd/Lateral weight shifts Therapeutic Exercises Standing Exercises Step-ups Standing Exercise Name Step-ups repeated fwd Side right Resistance AROM Equipment Used BOSU, rail support Reps/Minutes x10 PT-OP-T Assessment and Plan Start: 03/11/22 13:49 Freq: Status: Active Protocol: Document 10/08/22 09:02 DCW (Rec: 04/07/23 09:42 [facility] [id number]) Physical Therapy Assessment Goals Two Impairment Pt severely limited R knee flexion limits ambulation ability Chief Investment Officer Goal (LTG) Pt to improve right knee flexion AROM by at least 40? from 55? to 95? in order to normalize gait pattern and reduce risk for hip and back pain dur to gait disturbance. 05/20/22: No signiifcant AROM 55 deg LTG Duration 12/02/22 Slow progression One Impairment Pt does not have an appropriate home exercise program Short Term Goal (STG) Pt to be independent and compliant with an appropriate HEP STG Duration Met Assessment Summary Assessment Pt required frequent reminders to flex knee, still has tendency to perform activities with a right knee fully extended, despite gains in flexion. Physical Therapy Plan Frequency and Duration Frequency of Treatment 1-2x/week Plan of Care Start Date 09/03/22 Plan of Care End Date 12/02/22 Therapeutic Interventions Therapeutic Interventions Aquatic Therapy,Gait Training, Home Exercise Program,Joint Mobilizations,Manual Therapy, Patient/Caregiver Education, Self-Care/Home Management,Soft Tissue Mobilization,Taping, Therapeutic Activities, Therapeutic Exercises Modalities Cold Pack/Ice Massage,Electric Stimulation,Hot Packs, Ultrasound Next Visit Focus/Plan Next Note Type Treatment Note Next Visit Plan Recheck R knee AROM pre/ post tx. continue functional ROM and activities. Review HEP: TB HS, TKE eccentric flexion, ankle/knee mobility at step, gait mechanics. Add DF against TB. Add prone quad stretch w/ Strap POC: Continue proper gait phase patterning and self between txs, try hurdles when able. POC: PROM, stretching, gait training
--- NOTE | 2022-10-12 09:45 | PT.OTN ---
Current Diagnoses Stiffness of right knee, not elsewhere classified (10/12/22) Unspecified injury of right lower leg, initial encounter (10/12/22) Unspecified injury of right lower leg, subsequent encounter (10/12/22) Physical Therapy Treatment Note PT-OP-A Visit Information Start: 03/11/22 13:49 Freq: Status: Active Protocol: Document 10/12/22 09:09 SP (Rec: 10/12/22 11:41 SP [id number]) Out-Patient Physical Therapy Visit Information Visit Information Visit Type Treatment Note Visit Start Time 09:09 Visit Stop Time 09:45 Total Visit Minutes 36 Visit Number 31 Number of SUPERVISOR CORE [employer]OP Visits 1 Evaluation Information Evaluation Date 03/11/22 Precautions Precautions IMPRESSION: 1. Subtle oblique tear involving posterior horn of medial meniscus extending to inferior articulating surface. Lateral meniscus is intact. 2. Low-grade MCL sprain. Anterior and posterior cruciate ligaments are intact. 3. Moderate grade sprain/partial-thickness tear involving lateral patellofemoral ligament near patella insertion. Quadriceps tendon and patellar tendon are intact . 4. Gkon-nu-ybtrrptk tricompartmental osteoarthritis and chondromalacia most notably in medial femoral tibial compartment. Small joint effusion. 5. Nonspecific mild subcutaneous soft tissue edema and small amount of fluid along anterior aspect of patella and patella tendon as above. Per Horacio Rojas M.D. on 04/26/2022 PT-OP-B Current Condition Start: 03/11/22 13:49 Freq: Status: Active Protocol: Document 03/11/22 09:45 DCW (Rec: 03/11/22 14:06 DCW [id number]) Current Condition History of Current Condition Onset Date 11/28/21 Current Complaints Right knee swelling, stiffness History of Current Condition Pt is a 61 year old female presenting to skilled therapy with a three month history of knee swelling and stiffness. Pt reports she tripped and fell on , and as she was holding things at the time, she was unable to catch herself, and fell onto her right knee with her full body weight. Pt reports that she had pretty significant pain for a few weeks, but it is now feeling a lot better. Pt reports that despite it feeling better, it is still swollen and so tight that she struggles to bend it. Pt went to the walk-in clinic one month ago, received x-rays, which were negative, and got referrals to PT and ortho. Admits she has not gone to ortho because they said they were surgeons, and I didn't think it was bad enough that I needed surgery, so I just didn't think I needed to go. Pt presents with a significant R limp due to walking with her knee in full extension at all times. Prior Treatments and Tests R knee x-ray: IMPRESSION: Small joint effusion. 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 Per: Bryce Julien M.D. on 02/09/2022 PT-OP-C Subjective Start: 03/11/22 13:49 Freq: Status: Active Protocol: Document 10/12/22 09:09 SP (Rec: 10/12/22 09:48 SP [id number]) OP-PT Subjective Patient Comments Patient Comments Pt reports ROM about the same. PT-OP-F Manual Assessment Start: 03/11/22 13:49 Freq: Status: Active Protocol: Document 09/03/22 11:20 DCW (Rec: 09/03/22 11:43 DCW [id number]) Manual Assessments Soft Tissue Assessment Soft Tissue Mobility Assessment Edema has largely improved, slight increase in circumfrential measurements vs left leg Joint Mobility Assessment Joint Mobility Assessment Moderately limited mobility of patella PT-OP-G Mobility & Gait Start: 03/11/22 17:35 Freq: Status: Active Protocol: Document 09/03/22 11:20 DCW (Rec: 09/03/22 11:43 DCW [id number]) OP Gait Assessment Gait Gait Assistance Required: Independent Assistive Devices Assistive Device None Gait Deviations General Gait Pattern Antalgic Factors Limiting Gait Function Factors Limiting Gait Function Limited Range of Motion Comments Gait Comments Pt improving with knee flexion during gait, admits she does need to constantly think about it, or she returns to ambulating with right knee in full extension PT-OP-J Posture/Palpation/Skin Start: 03/11/22 13:49 Freq: Status: Active Protocol: Document 09/03/22 11:20 DCW (Rec: 09/03/22 11:43 DCW [id number]) Skin Assessment Circumference Measurement 10 cm superior to patella Location R leg Measurement (Centimeters) 63.2 Knee joint line Location R joint line Measurement (Centimeters) 51.2 Mid Calf Location R mid calf (9cm inferior patella) Measurement (Centimeters) 49.4 PT-OP-K Range of Motion Start: 03/11/22 13:49 Freq: Status: Active Protocol: Document 09/03/22 11:20 DCW (Rec: 09/03/22 11:43 DCW [id number]) Knee Goniometric Range of Motion Knee Right Knee ROM WFL No Patient Position Sitting Flexion Active (degrees) 88 Flexion Passive (degrees) 96 Extension Active (degrees) 0 Comments PROM in supine: 104 PT-OP-L Special Tests Start: 03/11/22 13:49 Freq: Status: Active Protocol: Document 09/03/22 11:20 DCW (Rec: 09/03/22 11:43 DCW [id number]) Special Tests Knee Special Tests Varus- 0 Degrees Test Results Negative Valgus- 0 Degrees Test Results Negative Posterior Draw Test Results Negative Patella Tap Test Results Negative Elle Test Test Results Negative Gerri's Test Results Negative Anterior Draw Test Results Negative PT-OP-M Strength Start: 03/11/22 13:49 Freq: Status: Active Protocol: Document 09/03/22 11:20 DCW (Rec: 09/03/22 11:43 DCW [id number]) Knee Strength Knee Manual Muscle Testing Right Comments Pt able to hold position against full force with no pain, but unable to move through full flexion PT-OP-Q Treatments Start: 03/11/22 13:49 Freq: Status: Active Protocol: Document 10/12/22 09:09 SP (Rec: 10/12/22 09:48 SP [id number]) Gym Equipment Shuttle Recovery Bilateral Squats Details 98? R knee flexion 10/12/22 Resistance 100# (1 new band, unlocked) Shuttle Recovery Platform Stable Reps/Time 5s hold x15 reps, Shuttle Balance Red Details Fwd/Bwd/Lateral weight shifts, Squats w/light BUE rail support Comments wt shift, HTs mini squat contact rail stability: cued hip hinge, knee flexion Therapeutic Exercises Sitting Exercises STS Equipment Used 20 box, 16 box + 2 foam, arms front Reps/Minutes x10 reps Comments cued hip hinge, scoot forward, L>R LE back, hip hinge/ slow descend Standing Exercises ankle, knee flexion mob Standing Exercise Name R Equipment Used 16 box calf stretch Standing Exercise Name reviewed HEP Side right Resistance contact BHR, bottom step Reps/Minutes 30 x2- improve DF ROM Comments cued tall posture, knee straight tolerant range, cued allow heel sink floor Step-ups Standing Exercise Name Step-ups repeated fwd, lateral Side right Resistance AROM Equipment Used light rail support (4 step& yellow disc)- BOSU unavailable Reps/Minutes x10 Comments VC for knee flexion while ascending/descending Manual Therapy Treatment Joint Mobilizations ankle Joint R talocrual Direction AP Grade II Comments during ankle mobility on step and shuttle recovery, long sitting Neuro Re-Education Treatment Balance Activities shan stepping Details 6 hurdles, 4 cushion ovals, 2 pods Equipment open areas Comments cued PT-OP-T Assessment and Plan Start: 03/11/22 13:49 Freq: Status: Active Protocol: Document 10/12/22 09:09 SP (Rec: 10/12/22 09:48 SP [id number]) Physical Therapy Assessment Goals Two Impairment Pt severely limited R knee flexion limits ambulation ability Antitank Assault Gunner Goal (LTG) Pt to improve right knee flexion AROM by at least 40? from 55? to 95? in order to normalize gait pattern and reduce risk for hip and back pain dur to gait disturbance. 05/20/22: No signiifcant AROM 55 deg LTG Duration 12/02/22 Slow progression One Impairment Pt does not have an appropriate home exercise program Short Term Goal (STG) Pt to be independent and compliant with an appropriate HEP STG Duration Met Assessment Summary Assessment Pt improved R active knee flexion during eccentric uneven surface step downs with light contact rail with reps. Pt improved dynamic balance and foot clearance with cues for slower pacing with postural/trunk alignment and core facilitation, cued for stop reset if feel off balance or lateral over wt shift. Physical Therapy Plan Frequency and Duration Frequency of Treatment 1-2x/week Plan of Care Start Date 09/03/22 Plan of Care End Date 12/02/22 Next Visit Focus/Plan Next Note Type Treatment Note Next Visit Plan Recheck R knee AROM pre/ post tx. Continue functional ROM and activities. POC: Continue proper gait phase patterning and self between txs. POC: PROM, stretching, gait training
--- NOTE | 2022-10-15 10:36 | PT.OTN ---
Current Diagnoses Stiffness of right knee, not elsewhere classified (10/15/22) Unspecified injury of right lower leg, initial encounter (10/15/22) Unspecified injury of right lower leg, subsequent encounter (10/15/22) Physical Therapy Treatment Note PT-OP-A Visit Information Start: 03/11/22 13:49 Freq: Status: Active Protocol: Document 10/15/22 09:13 SW (Rec: 10/15/22 10:31 SW [id number]) Out-Patient Physical Therapy Visit Information Visit Information Visit Type Treatment Note Visit Start Time 09:04 Visit Stop Time 09:50 Total Visit Minutes 46 Visit Number 32 Number of LARRY OPERATOR Visits 2 PT-OP-B Current Condition Start: 03/11/22 13:49 Freq: Status: Active Protocol: Document 03/11/22 09:45 DCW (Rec: 03/11/22 14:06 DCW [id number]) Current Condition History of Current Condition Onset Date 11/28/21 Current Complaints Right knee swelling, stiffness History of Current Condition Pt is a 61 year old female presenting to skilled therapy with a three month history of knee swelling and stiffness. Pt reports she tripped and fell on , and as she was holding things at the time, she was unable to catch herself, and fell onto her right knee with her full body weight. Pt reports that she had pretty significant pain for a few weeks, but it is now feeling a lot better. Pt reports that despite it feeling better, it is still swollen and so tight that she struggles to bend it. Pt went to the walk-in clinic one month ago, received x-rays, which were negative, and got referrals to PT and ortho. Admits she has not gone to ortho because they said they were surgeons, and I didn't think it was bad enough that I needed surgery, so I just didn't think I needed to go. Pt presents with a significant R limp due to walking with her knee in full extension at all times. Prior Treatments and Tests R knee x-ray: IMPRESSION: Small joint effusion. 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 Per: Bryce Julien M.D. on 02/09/2022 PT-OP-C Subjective Start: 03/11/22 13:49 Freq: Status: Active Protocol: Document 10/15/22 09:13 SW (Rec: 10/15/22 10:31 SW [id number]) OP-PT Subjective Patient Comments Patient Comments Pt reports no differences this session. No pain to report. Feels like she has made progress in PT starting out at 55 degrees of flexion, even though it may seem to be slow. PT-OP-F Manual Assessment Start: 03/11/22 13:49 Freq: Status: Active Protocol: Document 09/03/22 11:20 DCW (Rec: 09/03/22 11:43 DCW [id number]) Manual Assessments Soft Tissue Assessment Soft Tissue Mobility Assessment Edema has largely improved, slight increase in circumfrential measurements vs left leg Joint Mobility Assessment Joint Mobility Assessment Moderately limited mobility of patella PT-OP-G Mobility & Gait Start: 03/11/22 17:35 Freq: Status: Active Protocol: Document 09/03/22 11:20 DCW (Rec: 09/03/22 11:43 DCW [id number]) OP Gait Assessment Gait Gait Assistance Required: Independent Assistive Devices Assistive Device None Gait Deviations General Gait Pattern Antalgic Factors Limiting Gait Function Factors Limiting Gait Function Limited Range of Motion Comments Gait Comments Pt improving with knee flexion during gait, admits she does need to constantly think about it, or she returns to ambulating with right knee in full extension PT-OP-J Posture/Palpation/Skin Start: 03/11/22 13:49 Freq: Status: Active Protocol: Document 09/03/22 11:20 DCW (Rec: 09/03/22 11:43 DCW [id number]) Skin Assessment Circumference Measurement 10 cm superior to patella Location R leg Measurement (Centimeters) 63.2 Knee joint line Location R joint line Measurement (Centimeters) 51.2 Mid Calf Location R mid calf (9cm inferior patella) Measurement (Centimeters) 49.4 PT-OP-K Range of Motion Start: 03/11/22 13:49 Freq: Status: Active Protocol: Document 09/03/22 11:20 DCW (Rec: 09/03/22 11:43 DCW [id number]) Knee Goniometric Range of Motion Knee Right Knee ROM WFL No Patient Position Sitting Flexion Active (degrees) 88 Flexion Passive (degrees) 96 Extension Active (degrees) 0 Comments PROM in supine: 104 PT-OP-L Special Tests Start: 03/11/22 13:49 Freq: Status: Active Protocol: Document 09/03/22 11:20 DCW (Rec: 09/03/22 11:43 DCW [id number]) Special Tests Knee Special Tests Varus- 0 Degrees Test Results Negative Valgus- 0 Degrees Test Results Negative Posterior Draw Test Results Negative Patella Tap Test Results Negative Elle Test Test Results Negative Gerri's Test Results Negative Anterior Draw Test Results Negative PT-OP-M Strength Start: 03/11/22 13:49 Freq: Status: Active Protocol: Document 09/03/22 11:20 DCW (Rec: 09/03/22 11:43 DCW [id number]) Knee Strength Knee Manual Muscle Testing Right Comments Pt able to hold position against full force with no pain, but unable to move through full flexion PT-OP-Q Treatments Start: 03/11/22 13:49 Freq: Status: Active Protocol: Document 10/15/22 09:13 SW (Rec: 10/15/22 10:31 SW [id number]) Cardio Equipment Recumbent Bicycle Duration (Minutes) 8 Resistance 4 Seat Position 4 Therapeutic Exercises Prone Exercises Flexion stretch Prone Exercise Name Prone knee flexion stretch Side right Resistance AAROM Equipment Used Blue mob belt Reps/Minutes 5 x 30 sec hold Comments VC to pull strap straight for correct alignment during knee flexion Sitting Exercises Knee flex/ plantar flex Sitting Exercise Name Stretch Side right Resistance Body weight asisted stretch Equipment Used chair Reps/Minutes 4 x 30 sec hold Comments VC for RLE alignment DF, EV Sitting Exercise Name DF Side right Resistance TB #2 Reps/Minutes 2x10 R knee flexion Side right Resistance TB #3 (latex free), therapist anchor Equipment Used chair Reps/Minutes x10 Comments VC for mechanics, educated patient on hip/trunk compensation Manual Therapy Treatment Joint Mobilizations Patellar MWM Joint Knee Direction Inferior/superior Body Position Seated Reps/Duration x3 each Patella Direction Inferior, superior Grade III Body Position Supine Reps/Duration x3 each Self-Care/Home Management Treatment Education Patient Education Body Mechanics,Home Exercise Program PT-OP-T Assessment and Plan Start: 03/11/22 13:49 Freq: Status: Active Protocol: Document 10/15/22 09:13 SW (Rec: 10/15/22 10:31 SW [id number]) Physical Therapy Assessment Goals Two Impairment Pt severely limited R knee flexion limits ambulation ability Snf Goal (LTG) Pt to improve right knee flexion AROM by at least 40? from 55? to 95? in order to normalize gait pattern and reduce risk for hip and back pain dur to gait disturbance. 05/20/22: No signiifcant AROM 55 deg LTG Duration 12/02/22 Slow progression One Impairment Pt does not have an appropriate home exercise program Short Term Goal (STG) Pt to be independent and compliant with an appropriate HEP STG Duration Met Assessment Summary Assessment Shelly improved R knee flexion pre tx 86 deg post stretching exercises 95 deg goniometry measurement, patient in supine AROM. Patient has not been doing HEP, feels that it is better here in the gym with a more structured environment. Educated patient on the importance of carryover for muscle building and tissue elasticity, Reviewed HEP exercises that she is comfortable starting out with, re issued printout for reference.
--- NOTE | 2022-10-19 10:30 | PT.OTN ---
Current Diagnoses Stiffness of right knee, not elsewhere classified (10/19/22) Unspecified injury of right lower leg, initial encounter (10/19/22) Unspecified injury of right lower leg, subsequent encounter (10/19/22) Physical Therapy Treatment Note PT-OP-A Visit Information Start: 03/11/22 13:49 Freq: Status: Active Protocol: Document 10/19/22 09:59 SP (Rec: 10/19/22 10:35 SP [id number]) Out-Patient Physical Therapy Visit Information Visit Information Visit Type Treatment Note Visit Start Time 09:50 Visit Stop Time 10:30 Total Visit Minutes 40 Visit Number 33 Number of MARBLE CUTTER Visits 3 Evaluation Information Evaluation Date 03/11/22 PT-OP-B Current Condition Start: 03/11/22 13:49 Freq: Status: Active Protocol: Document 03/11/22 09:45 DCW (Rec: 03/11/22 14:06 DCW [id number]) Current Condition History of Current Condition Onset Date 11/28/21 Current Complaints Right knee swelling, stiffness History of Current Condition Pt is a 61 year old female presenting to skilled therapy with a three month history of knee swelling and stiffness. Pt reports she tripped and fell on , and as she was holding things at the time, she was unable to catch herself, and fell onto her right knee with her full body weight. Pt reports that she had pretty significant pain for a few weeks, but it is now feeling a lot better. Pt reports that despite it feeling better, it is still swollen and so tight that she struggles to bend it. Pt went to the walk-in clinic one month ago, received x-rays, which were negative, and got referrals to PT and ortho. Admits she has not gone to ortho because they said they were surgeons, and I didn't think it was bad enough that I needed surgery, so I just didn't think I needed to go. Pt presents with a significant R limp due to walking with her knee in full extension at all times. Prior Treatments and Tests R knee x-ray: IMPRESSION: Small joint effusion. 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 Per: Bryce Julien M.D. on 02/09/2022 PT-OP-C Subjective Start: 03/11/22 13:49 Freq: Status: Active Protocol: Document 10/19/22 09:59 SP (Rec: 10/19/22 10:35 SP [id number]) OP-PT Subjective Patient Comments Patient Comments Pt reported not seeing significant progress lately in ROM. PT-OP-F Manual Assessment Start: 03/11/22 13:49 Freq: Status: Active Protocol: Document 09/03/22 11:20 DCW (Rec: 09/03/22 11:43 DCW [id number]) Manual Assessments Soft Tissue Assessment Soft Tissue Mobility Assessment Edema has largely improved, slight increase in circumfrential measurements vs left leg Joint Mobility Assessment Joint Mobility Assessment Moderately limited mobility of patella PT-OP-G Mobility & Gait Start: 03/11/22 17:35 Freq: Status: Active Protocol: Document 09/03/22 11:20 DCW (Rec: 09/03/22 11:43 DCW [id number]) OP Gait Assessment Gait Gait Assistance Required: Independent Assistive Devices Assistive Device None Gait Deviations General Gait Pattern Antalgic Factors Limiting Gait Function Factors Limiting Gait Function Limited Range of Motion Comments Gait Comments Pt improving with knee flexion during gait, admits she does need to constantly think about it, or she returns to ambulating with right knee in full extension PT-OP-J Posture/Palpation/Skin Start: 03/11/22 13:49 Freq: Status: Active Protocol: Document 09/03/22 11:20 DCW (Rec: 09/03/22 11:43 DCW [id number]) Skin Assessment Circumference Measurement 10 cm superior to patella Location R leg Measurement (Centimeters) 63.2 Knee joint line Location R joint line Measurement (Centimeters) 51.2 Mid Calf Location R mid calf (9cm inferior patella) Measurement (Centimeters) 49.4 PT-OP-K Range of Motion Start: 03/11/22 13:49 Freq: Status: Active Protocol: Document 09/03/22 11:20 DCW (Rec: 09/03/22 11:43 DCW [id number]) Knee Goniometric Range of Motion Knee Right Knee ROM WFL No Patient Position Sitting Flexion Active (degrees) 88 Flexion Passive (degrees) 96 Extension Active (degrees) 0 Comments PROM in supine: 104 PT-OP-L Special Tests Start: 03/11/22 13:49 Freq: Status: Active Protocol: Document 09/03/22 11:20 DCW (Rec: 09/03/22 11:43 DCW [id number]) Special Tests Knee Special Tests Varus- 0 Degrees Test Results Negative Valgus- 0 Degrees Test Results Negative Posterior Draw Test Results Negative Patella Tap Test Results Negative Elle Test Test Results Negative Gerri's Test Results Negative Anterior Draw Test Results Negative PT-OP-M Strength Start: 03/11/22 13:49 Freq: Status: Active Protocol: Document 09/03/22 11:20 DCW (Rec: 09/03/22 11:43 DCW [id number]) Knee Strength Knee Manual Muscle Testing Right Comments Pt able to hold position against full force with no pain, but unable to move through full flexion PT-OP-Q Treatments Start: 03/11/22 13:49 Freq: Status: Active Protocol: Document 10/19/22 09:59 SP (Rec: 10/19/22 10:35 SP [id number]) Cardio Equipment Recumbent Bicycle Duration (Minutes) 6 Resistance 4 Seat Position 4 Gym Equipment Shuttle Recovery unilateral Details 115 deg R knee flexion Resistance 50# (1 new band) Reps/Time 5 SH x10 Bilateral Squats Details 105? R knee flexion 10/19/22 Resistance 100# (1 new band, unlocked) Shuttle Recovery Platform Stable Reps/Time 5s hold x15 reps, Therapeutic Exercises Supine Exercises Heel slides Supine Exercise Name Heel slides: 112 deg Side right Resistance AAROM with extra assist therapist Equipment Used 90/90, RLE over Tball, use strap Reps/Minutes x10 reps x 5 SH Comments good feedback response Standing Exercises lunges Side bilateral Resistance 6 pods, 2 cones Equipment Used squat lunge ball cone transfer Reps/Minutes x10 Comments cued knee , increase JORGE ankle, knee flexion mob Standing Exercise Name R Equipment Used 16 box Reps/Minutes contact support rail Comments noticed increased R knee flexion post manual and shuttle press. Manual Therapy Treatment Soft Tissue Mobilization quad Body Location R superior patella more medial quad supine, calf & HS prone Mobilization Type Cross-Friction,Myofascial Release,Strumming,Sustained Pressure,Other Intensity/Depth Moderate Comments manual Joint Mobilizations Tibiofemoral Joint R knee Direction PA Grade III Body Position Prone Comments use of strap PT-OP-T Assessment and Plan Start: 03/11/22 13:49 Freq: Status: Active Protocol: Document 10/19/22 09:59 SP (Rec: 10/19/22 10:35 SP [id number]) Physical Therapy Assessment Goals Two Impairment Pt severely limited R knee flexion limits ambulation ability Senior Care Goal (LTG) Pt to improve right knee flexion AROM by at least 40? from 55? to 95? in order to normalize gait pattern and reduce risk for hip and back pain dur to gait disturbance. 05/20/22: No signiifcant AROM 55 deg 10/19/22: LTG Duration 12/02/22 Slow progression One Impairment Pt does not have an appropriate home exercise program Short Term Goal (STG) Pt to be independent and compliant with an appropriate HEP STG Duration Met Assessment Summary Assessment Pt good response to manual, unilateral R knee flexion and functional squat ball cone transfer with ability to make correction into deeper AROM with cuing. Pt reports no pain during ther ex. Physical Therapy Plan Frequency and Duration Frequency of Treatment 1-2x/week Plan of Care Start Date 09/03/22 Plan of Care End Date 12/02/22 Therapeutic Interventions Therapeutic Interventions Aquatic Therapy,Gait Training, Home Exercise Program,Joint Mobilizations,Manual Therapy, Patient/Caregiver Education, Self-Care/Home Management,Soft Tissue Mobilization,Taping, Therapeutic Activities, Therapeutic Exercises Modalities Cold Pack/Ice Massage,Electric Stimulation,Hot Packs, Ultrasound Next Visit Focus/Plan Next Note Type Treatment Note Next Visit Plan Recheck R knee AROM pre/ post tx. Continue functional ROM and activities. POC: Continue proper gait phase patterning and self between txs. POC: PROM, stretching, gait training
--- NOTE | 2022-10-29 09:43 | PT.OTN ---
Current Diagnoses Stiffness of right knee, not elsewhere classified (10/29/22) Unspecified injury of right lower leg, initial encounter (10/29/22) Unspecified injury of right lower leg, subsequent encounter (10/29/22) Physical Therapy Treatment Note PT-OP-A Visit Information Start: 03/11/22 13:49 Freq: Status: Active Protocol: Document 10/29/22 09:03 DCW (Rec: 10/29/22 09:43 DCW [id number]) Out-Patient Physical Therapy Visit Information Visit Information Visit Type Treatment Note Visit Start Time 09:03 Visit Stop Time 09:45 Total Visit Minutes 42 Visit Number 34 Number of GULLET SLITTER Visits 0 Evaluation Information Evaluation Date 03/11/22 PT-OP-B Current Condition Start: 03/11/22 13:49 Freq: Status: Active Protocol: Document 03/11/22 09:45 DCW (Rec: 03/11/22 14:06 DCW [id number]) Current Condition History of Current Condition Onset Date 11/28/21 Current Complaints Right knee swelling, stiffness History of Current Condition Pt is a 61 year old female presenting to skilled therapy with a three month history of knee swelling and stiffness. Pt reports she tripped and fell on , and as she was holding things at the time, she was unable to catch herself, and fell onto her right knee with her full body weight. Pt reports that she had pretty significant pain for a few weeks, but it is now feeling a lot better. Pt reports that despite it feeling better, it is still swollen and so tight that she struggles to bend it. Pt went to the walk-in clinic one month ago, received x-rays, which were negative, and got referrals to PT and ortho. Admits she has not gone to ortho because they said they were surgeons, and I didn't think it was bad enough that I needed surgery, so I just didn't think I needed to go. Pt presents with a significant R limp due to walking with her knee in full extension at all times. Prior Treatments and Tests R knee x-ray: IMPRESSION: Small joint effusion. 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 Per: Bryce Julien M.D. on 02/09/2022 PT-OP-C Subjective Start: 03/11/22 13:49 Freq: Status: Active Protocol: Document 10/29/22 09:03 DCW (Rec: 10/29/22 09:43 DCW [id number]) OP-PT Subjective Patient Comments Patient Comments I thought it had been doing better, but I've been doing a lot of work out in the yard, and yesterday my knee just really swelled up. PT-OP-F Manual Assessment Start: 03/11/22 13:49 Freq: Status: Active Protocol: Document 09/03/22 11:20 DCW (Rec: 09/03/22 11:43 DCW [id number]) Manual Assessments Soft Tissue Assessment Soft Tissue Mobility Assessment Edema has largely improved, slight increase in circumfrential measurements vs left leg Joint Mobility Assessment Joint Mobility Assessment Moderately limited mobility of patella PT-OP-G Mobility & Gait Start: 03/11/22 17:35 Freq: Status: Active Protocol: Document 09/03/22 11:20 DCW (Rec: 09/03/22 11:43 DCW [id number]) OP Gait Assessment Gait Gait Assistance Required: Independent Assistive Devices Assistive Device None Gait Deviations General Gait Pattern Antalgic Factors Limiting Gait Function Factors Limiting Gait Function Limited Range of Motion Comments Gait Comments Pt improving with knee flexion during gait, admits she does need to constantly think about it, or she returns to ambulating with right knee in full extension PT-OP-J Posture/Palpation/Skin Start: 03/11/22 13:49 Freq: Status: Active Protocol: Document 09/03/22 11:20 DCW (Rec: 09/03/22 11:43 DCW [id number]) Skin Assessment Circumference Measurement 10 cm superior to patella Location R leg Measurement (Centimeters) 63.2 Knee joint line Location R joint line Measurement (Centimeters) 51.2 Mid Calf Location R mid calf (9cm inferior patella) Measurement (Centimeters) 49.4 PT-OP-K Range of Motion Start: 03/11/22 13:49 Freq: Status: Active Protocol: Document 09/03/22 11:20 DCW (Rec: 09/03/22 11:43 DCW [id number]) Knee Goniometric Range of Motion Knee Right Knee ROM WFL No Patient Position Sitting Flexion Active (degrees) 88 Flexion Passive (degrees) 96 Extension Active (degrees) 0 Comments PROM in supine: 104 PT-OP-L Special Tests Start: 03/11/22 13:49 Freq: Status: Active Protocol: Document 09/03/22 11:20 DCW (Rec: 09/03/22 11:43 DCW [id number]) Special Tests Knee Special Tests Varus- 0 Degrees Test Results Negative Valgus- 0 Degrees Test Results Negative Posterior Draw Test Results Negative Patella Tap Test Results Negative Elle Test Test Results Negative Gerri's Test Results Negative Anterior Draw Test Results Negative PT-OP-M Strength Start: 03/11/22 13:49 Freq: Status: Active Protocol: Document 09/03/22 11:20 DCW (Rec: 09/03/22 11:43 DCW [id number]) Knee Strength Knee Manual Muscle Testing Right Comments Pt able to hold position against full force with no pain, but unable to move through full flexion PT-OP-Q Treatments Start: 03/11/22 13:49 Freq: Status: Active Protocol: Document 10/29/22 09:03 DCW (Rec: 10/29/22 09:43 DCW [id number]) Cardio Equipment Recumbent Bicycle Duration (Minutes) 6 Resistance 4 Seat Position 4 Gym Equipment Shuttle Recovery unilateral Details 111? R knee flexion 10/29/22 Resistance 50# (1 new band) Reps/Time 5 SH x10 Bilateral Squats Details 108? R knee flexion 10/29/22 Resistance 100# (2 new band) Shuttle Recovery Platform Stable Reps/Time 5s hold x15 reps, Shuttle Balance Red Details Staggered weight shift, lateral weight shift Therapeutic Exercises Standing Exercises ankle, knee flexion mob Standing Exercise Name R Equipment Used 16 box Reps/Minutes contact support rail Comments noticed increased R knee flexion post manual and shuttle press. Manual Therapy Treatment Soft Tissue Mobilization quad Body Location R superior patella more medial quad supine, calf & HS prone Mobilization Type Cross-Friction,Myofascial Release,Strumming,Sustained Pressure Intensity/Depth Moderate Comments manual Joint Mobilizations Patella Direction Inferior, superior Grade III Body Position Supine Reps/Duration x3 each Tibiofemoral Joint R knee Direction PA Grade III Body Position Prone Comments use of strap PT-OP-T Assessment and Plan Start: 03/11/22 13:49 Freq: Status: Active Protocol: Document 10/29/22 09:03 DCW (Rec: 10/29/22 09:43 DCW [id number]) Physical Therapy Assessment Goals Two Impairment Pt severely limited R knee flexion limits ambulation ability Prison Goal (LTG) Pt to improve right knee flexion AROM by at least 40? from 55? to 95? in order to normalize gait pattern and reduce risk for hip and back pain dur to gait disturbance. 05/20/22: No signiifcant AROM 55 deg LTG Duration 12/02/22 Slow progression One Impairment Pt does not have an appropriate home exercise program Short Term Goal (STG) Pt to be independent and compliant with an appropriate HEP STG Duration Met Assessment Summary Assessment Pt slowly but regularly making progress with both active and passive ROM, did exhibit slight increase in joint effusion today after busy days yesterday. Continue to focus on increased ROM, strength, and gait quality. Physical Therapy Plan Frequency and Duration Frequency of Treatment 1-2x/week Plan of Care Start Date 09/03/22 Plan of Care End Date 12/02/22 Therapeutic Interventions Therapeutic Interventions Aquatic Therapy,Gait Training, Home Exercise Program,Joint Mobilizations,Manual Therapy, Patient/Caregiver Education, Self-Care/Home Management,Soft Tissue Mobilization,Taping, Therapeutic Activities, Therapeutic Exercises Modalities Cold Pack/Ice Massage,Electric Stimulation,Hot Packs, Ultrasound Next Visit Focus/Plan Next Note Type Treatment Note Next Visit Plan Recheck R knee AROM pre/ post tx. Continue functional ROM and activities. POC: Continue proper gait phase patterning and self between txs. POC: PROM, stretching, gait training
--- NOTE | 2022-11-02 09:47 | PT.OTN ---
Current Diagnoses Stiffness of right knee, not elsewhere classified (11/02/22) Unspecified injury of right lower leg, initial encounter (11/02/22) Unspecified injury of right lower leg, subsequent encounter (11/02/22) Physical Therapy Treatment Note PT-OP-A Visit Information Start: 03/11/22 13:49 Freq: Status: Active Protocol: Document 11/02/22 09:04 SP (Rec: 11/02/22 09:52 SP [id number]) Out-Patient Physical Therapy Visit Information Visit Information Visit Type Treatment Note Visit Start Time 09:04 Visit Stop Time 09:47 Total Visit Minutes 43 Visit Number 35 Number of CREDIT CONTROL MANAGER Visits 1 Evaluation Information Evaluation Date 03/11/22 Precautions Precautions IMPRESSION: 1. Subtle oblique tear involving posterior horn of medial meniscus extending to inferior articulating surface. Lateral meniscus is intact. 2. Low-grade MCL sprain. Anterior and posterior cruciate ligaments are intact. 3. Moderate grade sprain/partial-thickness tear involving lateral patellofemoral ligament near patella insertion. Quadriceps tendon and patellar tendon are intact . 4. Dffe-tq-[id number] tricompartmental osteoarthritis and chondromalacia most notably in medial femoral tibial compartment. Small joint effusion. 5. Nonspecific mild subcutaneous soft tissue edema and small amount of fluid along anterior aspect of patella and patella tendon as above. Per Horacio Rojas M.D. on 04/26/2022 PT-OP-B Current Condition Start: 03/11/22 13:49 Freq: Status: Active Protocol: Document 03/11/22 09:45 DCW (Rec: 03/11/22 14:06 DCW [id number]) Current Condition History of Current Condition Onset Date 11/28/21 Current Complaints Right knee swelling, stiffness History of Current Condition Pt is a 61 year old female presenting to skilled therapy with a three month history of knee swelling and stiffness. Pt reports she tripped and fell on , and as she was holding things at the time, she was unable to catch herself, and fell onto her right knee with her full body weight. Pt reports that she had pretty significant pain for a few weeks, but it is now feeling a lot better. Pt reports that despite it feeling better, it is still swollen and so tight that she struggles to bend it. Pt went to the walk-in clinic one month ago, received x-rays, which were negative, and got referrals to PT and ortho. Admits she has not gone to ortho because they said they were surgeons, and I didn't think it was bad enough that I needed surgery, so I just didn't think I needed to go. Pt presents with a significant R limp due to walking with her knee in full extension at all times. Prior Treatments and Tests R knee x-ray: IMPRESSION: Small joint effusion. 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 Per: Bryce Julien M.D. on 02/09/2022 PT-OP-C Subjective Start: 03/11/22 13:49 Freq: Status: Active Protocol: Document 11/02/22 09:04 SP (Rec: 11/02/22 09:52 SP [id number]) OP-PT Subjective Patient Comments Patient Comments Pt reports pretty stiff today unsure why. Was suprised PT-OP-F Manual Assessment Start: 03/11/22 13:49 Freq: Status: Active Protocol: Document 09/03/22 11:20 DCW (Rec: 09/03/22 11:43 DCW [id number]) Manual Assessments Soft Tissue Assessment Soft Tissue Mobility Assessment Edema has largely improved, slight increase in circumfrential measurements vs left leg Joint Mobility Assessment Joint Mobility Assessment Moderately limited mobility of patella PT-OP-G Mobility & Gait Start: 03/11/22 17:35 Freq: Status: Active Protocol: Document 09/03/22 11:20 DCW (Rec: 09/03/22 11:43 DCW [id number]) OP Gait Assessment Gait Gait Assistance Required: Independent Assistive Devices Assistive Device None Gait Deviations General Gait Pattern Antalgic Factors Limiting Gait Function Factors Limiting Gait Function Limited Range of Motion Comments Gait Comments Pt improving with knee flexion during gait, admits she does need to constantly think about it, or she returns to ambulating with right knee in full extension PT-OP-J Posture/Palpation/Skin Start: 03/11/22 13:49 Freq: Status: Active Protocol: Document 09/03/22 11:20 DCW (Rec: 09/03/22 11:43 DCW [id number]) Skin Assessment Circumference Measurement 10 cm superior to patella Location R leg Measurement (Centimeters) 63.2 Knee joint line Location R joint line Measurement (Centimeters) 51.2 Mid Calf Location R mid calf (9cm inferior patella) Measurement (Centimeters) 49.4 PT-OP-K Range of Motion Start: 03/11/22 13:49 Freq: Status: Active Protocol: Document 09/03/22 11:20 DCW (Rec: 09/03/22 11:43 DCW [id number]) Knee Goniometric Range of Motion Knee Right Knee ROM WFL No Patient Position Sitting Flexion Active (degrees) 88 Flexion Passive (degrees) 96 Extension Active (degrees) 0 Comments PROM in supine: 104 PT-OP-L Special Tests Start: 03/11/22 13:49 Freq: Status: Active Protocol: Document 09/03/22 11:20 DCW (Rec: 09/03/22 11:43 DCW [id number]) Special Tests Knee Special Tests Varus- 0 Degrees Test Results Negative Valgus- 0 Degrees Test Results Negative Posterior Draw Test Results Negative Patella Tap Test Results Negative Elle Test Test Results Negative Gerri's Test Results Negative Anterior Draw Test Results Negative PT-OP-M Strength Start: 03/11/22 13:49 Freq: Status: Active Protocol: Document 09/03/22 11:20 DCW (Rec: 09/03/22 11:43 DCW [id number]) Knee Strength Knee Manual Muscle Testing Right Comments Pt able to hold position against full force with no pain, but unable to move through full flexion PT-OP-Q Treatments Start: 03/11/22 13:49 Freq: Status: Active Protocol: Document 11/02/22 09:04 SP (Rec: 11/02/22 09:52 SP [id number]) Cardio Equipment Recumbent Bicycle Duration (Minutes) 6 Resistance 4 Seat Position 6>5>4 Gym Equipment Shuttle Recovery unilateral Details 111? R knee flexion 10/29/22 Resistance 50# (1 new band)> 2 old bands Reps/Time 3 SH x3- challenged today coming to extension pain knee, stopped Bilateral Squats Details 111? R knee flexion 11/02/22 ( wedge lower) Resistance 100# (2 new band) Shuttle Recovery Platform Stable Reps/Time 5s hold x15 reps, Shuttle Balance Red Details WBOS, NBOS, stagger Reps/Duration 8 min total Comments 1. wt shift f/b/lateral 2. head turns 3. balloon activity (lateral wt shifting) cued allow knee flexion ROM during lateral wt shifting Therapeutic Exercises Standing Exercises ankle, knee flexion mob Standing Exercise Name R Equipment Used 16 box Reps/Minutes contact support rail Comments noticed increased R knee flexion post manual and shuttle press. calf stretch Standing Exercise Name reviewed HEP Side right Resistance contact BHR, bottom step Reps/Minutes 30 x2- improve DF ROM Comments cued allow heel sink floor Manual Therapy Treatment Soft Tissue Mobilization quad Body Location R superior patella more medial quad Mobilization Type Cross-Friction,Myofascial Release Intensity/Depth Moderate Body Position Hooklying Comments manual Joint Mobilizations ankle Joint R talocrual Direction AP Grade II Body Position Supine Patella Direction Inferior, superior, med, lat Grade III Body Position Supine Reps/Duration x3 each Tibiofemoral Joint R knee Direction PA, AP Grade III Body Position Supine Comments knee bent, straight over therapist leg PT-OP-T Assessment and Plan Start: 03/11/22 13:49 Freq: Status: Active Protocol: Document 11/02/22 09:04 SP (Rec: 11/02/22 09:52 SP [id number]) Physical Therapy Assessment Goals Two Impairment Pt severely limited R knee flexion limits ambulation ability Retirement Goal (LTG) Pt to improve right knee flexion AROM by at least 40? from 55? to 95? in order to normalize gait pattern and reduce risk for hip and back pain dur to gait disturbance. 05/20/22: No signiifcant AROM 55 deg LTG Duration 12/02/22 Slow progression One Impairment Pt does not have an appropriate home exercise program Short Term Goal (STG) Pt to be independent and compliant with an appropriate HEP STG Duration Met Assessment Summary Assessment Pt improved R knee flexion and ankle DF AROM with reports less tightness post manual during shuttle recovery and balance wt shifts with cues. Pt states is feeling more confident on inclines working in garden. Physical Therapy Plan Frequency and Duration Frequency of Treatment 1-2x/week Plan of Care Start Date 09/03/22 Plan of Care End Date 12/02/22 Therapeutic Interventions Therapeutic Interventions Aquatic Therapy,Gait Training, Home Exercise Program,Joint Mobilizations,Manual Therapy, Patient/Caregiver Education, Self-Care/Home Management,Soft Tissue Mobilization,Taping, Therapeutic Activities, Therapeutic Exercises Modalities Cold Pack/Ice Massage,Electric Stimulation,Hot Packs, Ultrasound Next Visit Focus/Plan Next Note Type Treatment Note Next Visit Plan Recheck R knee AROM pre/ post tx. Continue functional ROM and activities. POC: Continue proper gait phase patterning and self between txs. POC: PROM, stretching, gait training
--- NOTE | 2022-11-09 10:45 | PT.OTN ---
Current Diagnoses Stiffness of right knee, not elsewhere classified (11/09/22) Unspecified injury of right lower leg, initial encounter (11/09/22) Unspecified injury of right lower leg, subsequent encounter (11/09/22) Physical Therapy Treatment Note PT-OP-A Visit Information Start: 03/11/22 13:49 Freq: Status: Active Protocol: Document 11/09/22 10:01 SP (Rec: 11/09/22 10:51 SP [id number]) Out-Patient Physical Therapy Visit Information Visit Information Visit Type Treatment Note Visit Note Pt late arrival then paid copay. Visit Start Time 10:07 Visit Stop Time 10:45 Total Visit Minutes 38 Visit Number 37 Number of LIVE AMM[employer]ITION INSPECTOR Visits 1 Evaluation Information Evaluation Date 03/11/22 Precautions Precautions IMPRESSION: 1. Subtle oblique tear involving posterior horn of medial meniscus extending to inferior articulating surface. Lateral meniscus is intact. 2. Low-grade MCL sprain. Anterior and posterior cruciate ligaments are intact. 3. Moderate grade sprain/partial-thickness tear involving lateral patellofemoral ligament near patella insertion. Quadriceps tendon and patellar tendon are intact . 4. Xyki-gq-vrnuplke tricompartmental osteoarthritis and chondromalacia most notably in medial femoral tibial compartment. Small joint effusion. 5. Nonspecific mild subcutaneous soft tissue edema and small amount of fluid along anterior aspect of patella and patella tendon as above. Per Horacio Rojas M.D. on 04/26/2022 PT-OP-B Current Condition Start: 03/11/22 13:49 Freq: Status: Active Protocol: Document 03/11/22 09:45 DCW (Rec: 03/11/22 14:06 DCW [id number]) Current Condition History of Current Condition Onset Date 11/28/21 Current Complaints Right knee swelling, stiffness History of Current Condition Pt is a 61 year old female presenting to skilled therapy with a three month history of knee swelling and stiffness. Pt reports she tripped and fell on , and as she was holding things at the time, she was unable to catch herself, and fell onto her right knee with her full body weight. Pt reports that she had pretty significant pain for a few weeks, but it is now feeling a lot better. Pt reports that despite it feeling better, it is still swollen and so tight that she struggles to bend it. Pt went to the walk-in clinic one month ago, received x-rays, which were negative, and got referrals to PT and ortho. Admits she has not gone to ortho because they said they were surgeons, and I didn't think it was bad enough that I needed surgery, so I just didn't think I needed to go. Pt presents with a significant R limp due to walking with her knee in full extension at all times. Prior Treatments and Tests R knee x-ray: IMPRESSION: Small joint effusion. 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 Per: Bryce Julien M.D. on 02/09/2022 PT-OP-C Subjective Start: 03/11/22 13:49 Freq: Status: Active Protocol: Document 11/09/22 10:01 SP (Rec: 11/09/22 10:51 SP [id number]) OP-PT Subjective Patient Comments Patient Comments Pt reports working in yard more, challenge lifting R LE up on 12 rock wall, can work to improve this and ROM. PT-OP-F Manual Assessment Start: 03/11/22 13:49 Freq: Status: Active Protocol: Document 09/03/22 11:20 DCW (Rec: 09/03/22 11:43 DCW [id number]) Manual Assessments Soft Tissue Assessment Soft Tissue Mobility Assessment Edema has largely improved, slight increase in circumfrential measurements vs left leg Joint Mobility Assessment Joint Mobility Assessment Moderately limited mobility of patella PT-OP-G Mobility & Gait Start: 03/11/22 17:35 Freq: Status: Active Protocol: Document 09/03/22 11:20 DCW (Rec: 09/03/22 11:43 DCW [id number]) OP Gait Assessment Gait Gait Assistance Required: Independent Assistive Devices Assistive Device None Gait Deviations General Gait Pattern Antalgic Factors Limiting Gait Function Factors Limiting Gait Function Limited Range of Motion Comments Gait Comments Pt improving with knee flexion during gait, admits she does need to constantly think about it, or she returns to ambulating with right knee in full extension PT-OP-J Posture/Palpation/Skin Start: 03/11/22 13:49 Freq: Status: Active Protocol: Document 09/03/22 11:20 DCW (Rec: 09/03/22 11:43 DCW [id number]) Skin Assessment Circumference Measurement 10 cm superior to patella Location R leg Measurement (Centimeters) 63.2 Knee joint line Location R joint line Measurement (Centimeters) 51.2 Mid Calf Location R mid calf (9cm inferior patella) Measurement (Centimeters) 49.4 PT-OP-K Range of Motion Start: 03/11/22 13:49 Freq: Status: Active Protocol: Document 09/03/22 11:20 DCW (Rec: 09/03/22 11:43 DCW [id number]) Knee Goniometric Range of Motion Knee Right Knee ROM WFL No Patient Position Sitting Flexion Active (degrees) 88 Flexion Passive (degrees) 96 Extension Active (degrees) 0 Comments PROM in supine: 104 PT-OP-L Special Tests Start: 03/11/22 13:49 Freq: Status: Active Protocol: Document 09/03/22 11:20 DCW (Rec: 09/03/22 11:43 DCW [id number]) Special Tests Knee Special Tests Varus- 0 Degrees Test Results Negative Valgus- 0 Degrees Test Results Negative Posterior Draw Test Results Negative Patella Tap Test Results Negative Elle Test Test Results Negative Gerri's Test Results Negative Anterior Draw Test Results Negative PT-OP-M Strength Start: 03/11/22 13:49 Freq: Status: Active Protocol: Document 09/03/22 11:20 DCW (Rec: 09/03/22 11:43 DCW [id number]) Knee Strength Knee Manual Muscle Testing Right Comments Pt able to hold position against full force with no pain, but unable to move through full flexion PT-OP-Q Treatments Start: 03/11/22 13:49 Freq: Status: Active Protocol: Document 11/09/22 10:01 SP (Rec: 11/09/22 10:51 SP [id number]) Therapeutic Exercises Standing Exercises ankle, knee flexion mob Standing Exercise Name R Equipment Used 16 box Reps/Minutes contact support rail Comments improve knee flexion and DF/ tarsal mobility calf stretch Standing Exercise Name gastroc, soleus Side right Resistance MYKEL, static and dynamic rocking Equipment Used rail contact support Reps/Minutes 30 x2- improve DF ROM Comments cued allow heel sink floor Step-ups Standing Exercise Name lateral Side bilateral Equipment Used 1 rail support, 8 step Reps/Minutes 2x10 Comments cued slow pacing descend to floor-allow ankle DF, R knee flexion Gait Training Gait Activity stairs Description ascend/descend-receiprocal stepping Surface 1 HR support Distance/Duration 4- 6 stairs x2 laps, 3-8 stairs Comments receiprocal stepping 1 HR, cud slower pacing allow knee flexion/ DF descend, improved slow eccentric flexion/DF with reps post manual and Manual Therapy Treatment Soft Tissue Mobilization quad Body Location R superior patella more medial quad supine, calf & HS prone Mobilization Type Cross-Friction,Myofascial Release,Strumming,Sustained Pressure Intensity/Depth Moderate Comments LE on table, lower leg off table w/farooq stretch Joint Mobilizations ankle Joint R talocrual Direction AP Grade II Body Position Supine Patella Direction Inferior, superior Grade III Body Position Supine Reps/Duration x3 each Tibiofemoral Joint R knee Direction PA, PA Grade III Comments hooklying, prone Neuro Re-Education Treatment Balance Activities step tap Details alternating BLE Equipment 12step, 1 HR>1 trek pole ( uses home) Reps/Duration x10 reps alternating Comments assimulate rock wall has to step up onto. CHallenge R kneeand hip flexion to place on step, noted little circumduction shan stepping Details 4 hurdles AROM warm up Equipment open areas Comments stable no compensations PT-OP-T Assessment and Plan Start: 03/11/22 13:49 Freq: Status: Active Protocol: Document 11/09/22 10:01 SP (Rec: 11/09/22 10:51 SP [id number]) Physical Therapy Assessment Goals Two Impairment Pt severely limited R knee flexion limits ambulation ability [facility] Goal (LTG) Pt to improve right knee flexion AROM by at least 40? from 55? to 95? in order to normalize gait pattern and reduce risk for hip and back pain dur to gait disturbance. 05/20/22: No signiifcant AROM 55 deg LTG Duration 12/02/22 Slow progression One Impairment Pt does not have an appropriate home exercise program Short Term Goal (STG) Pt to be independent and compliant with an appropriate HEP STG Duration Met Assessment Summary Assessment Pt improved eccentric R knee flexion and DF descend with less UE support receiprocal 6 steps, Min A 1 UE 8 steps to allow yard work. Physical Therapy Plan Frequency and Duration Frequency of Treatment 1-2x/week Plan of Care Start Date 09/03/22 Plan of Care End Date 12/02/22 Therapeutic Interventions Therapeutic Interventions Aquatic Therapy,Gait Training, Home Exercise Program,Joint Mobilizations,Manual Therapy, Patient/Caregiver Education, Self-Care/Home Management,Soft Tissue Mobilization,Taping, Therapeutic Activities, Therapeutic Exercises Modalities Cold Pack/Ice Massage,Electric Stimulation,Hot Packs, Ultrasound Next Visit Focus/Plan Next Note Type Treatment Note Next Visit Plan Recheck R knee AROM pre/ post tx. Continue functional ROM and activities. POC: Continue proper gait phase patterning and self between txs. POC: PROM, stretching, gait training
--- NOTE | 2022-11-12 10:31 | PT.OTN ---
Current Diagnoses Stiffness of right knee, not elsewhere classified (11/12/22) Unspecified injury of right lower leg, initial encounter (11/12/22) Unspecified injury of right lower leg, subsequent encounter (11/12/22) Physical Therapy Treatment Note PT-OP-A Visit Information Start: 03/11/22 13:49 Freq: Status: Active Protocol: Document 11/12/22 09:51 DCW (Rec: 11/12/22 10:31 DCW [id number]) Out-Patient Physical Therapy Visit Information Visit Information Visit Type Treatment Note Visit Start Time 09:51 Visit Stop Time 10:30 Total Visit Minutes 39 Visit Number 38 Number of PLEXIGLAS FORMER Visits 0 Evaluation Information Evaluation Date 03/11/22 Precautions Precautions IMPRESSION: 1. Subtle oblique tear involving posterior horn of medial meniscus extending to inferior articulating surface. Lateral meniscus is intact. 2. Low-grade MCL sprain. Anterior and posterior cruciate ligaments are intact. 3. Moderate grade sprain/partial-thickness tear involving lateral patellofemoral ligament near patella insertion. Quadriceps tendon and patellar tendon are intact . 4. [id number] tricompartmental osteoarthritis and chondromalacia most notably in medial femoral tibial compartment. Small joint effusion. 5. Nonspecific mild subcutaneous soft tissue edema and small amount of fluid along anterior aspect of patella and patella tendon as above. Per Horacio Rojas M.D. on 04/26/2022 PT-OP-B Current Condition Start: 03/11/22 13:49 Freq: Status: Active Protocol: Document 03/11/22 09:45 DCW (Rec: 03/11/22 14:06 DCW [id number]) Current Condition History of Current Condition Onset Date 11/28/21 Current Complaints Right knee swelling, stiffness History of Current Condition Pt is a 61 year old female presenting to skilled therapy with a three month history of knee swelling and stiffness. Pt reports she tripped and fell on , and as she was holding things at the time, she was unable to catch herself, and fell onto her right knee with her full body weight. Pt reports that she had pretty significant pain for a few weeks, but it is now feeling a lot better. Pt reports that despite it feeling better, it is still swollen and so tight that she struggles to bend it. Pt went to the walk-in clinic one month ago, received x-rays, which were negative, and got referrals to PT and ortho. Admits she has not gone to ortho because they said they were surgeons, and I didn't think it was bad enough that I needed surgery, so I just didn't think I needed to go. Pt presents with a significant R limp due to walking with her knee in full extension at all times. Prior Treatments and Tests R knee x-ray: IMPRESSION: Small joint effusion. 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 Per: Bryce Julien M.D. on 02/09/2022 PT-OP-C Subjective Start: 03/11/22 13:49 Freq: Status: Active Protocol: Document 11/12/22 09:51 DCW (Rec: 11/12/22 10:31 DCW [id number]) OP-PT Subjective Patient Comments Patient Comments I was doing some stuff yesterday in the yard, and last night it just kind of felt stiff and really blew up, but it's doing better today. PT-OP-F Manual Assessment Start: 03/11/22 13:49 Freq: Status: Active Protocol: Document 09/03/22 11:20 DCW (Rec: 09/03/22 11:43 DCW [id number]) Manual Assessments Soft Tissue Assessment Soft Tissue Mobility Assessment Edema has largely improved, slight increase in circumfrential measurements vs left leg Joint Mobility Assessment Joint Mobility Assessment Moderately limited mobility of patella PT-OP-G Mobility & Gait Start: 03/11/22 17:35 Freq: Status: Active Protocol: Document 09/03/22 11:20 DCW (Rec: 09/03/22 11:43 DCW [id number]) OP Gait Assessment Gait Gait Assistance Required: Independent Assistive Devices Assistive Device None Gait Deviations General Gait Pattern Antalgic Factors Limiting Gait Function Factors Limiting Gait Function Limited Range of Motion Comments Gait Comments Pt improving with knee flexion during gait, admits she does need to constantly think about it, or she returns to ambulating with right knee in full extension PT-OP-J Posture/Palpation/Skin Start: 03/11/22 13:49 Freq: Status: Active Protocol: Document 09/03/22 11:20 DCW (Rec: 09/03/22 11:43 DCW [id number]) Skin Assessment Circumference Measurement 10 cm superior to patella Location R leg Measurement (Centimeters) 63.2 Knee joint line Location R joint line Measurement (Centimeters) 51.2 Mid Calf Location R mid calf (9cm inferior patella) Measurement (Centimeters) 49.4 PT-OP-K Range of Motion Start: 03/11/22 13:49 Freq: Status: Active Protocol: Document 09/03/22 11:20 DCW (Rec: 09/03/22 11:43 DCW [id number]) Knee Goniometric Range of Motion Knee Right Knee ROM WFL No Patient Position Sitting Flexion Active (degrees) 88 Flexion Passive (degrees) 96 Extension Active (degrees) 0 Comments PROM in supine: 104 PT-OP-L Special Tests Start: 03/11/22 13:49 Freq: Status: Active Protocol: Document 09/03/22 11:20 DCW (Rec: 09/03/22 11:43 DCW [id number]) Special Tests Knee Special Tests Varus- 0 Degrees Test Results Negative Valgus- 0 Degrees Test Results Negative Posterior Draw Test Results Negative Patella Tap Test Results Negative Elle Test Test Results Negative Gerri's Test Results Negative Anterior Draw Test Results Negative PT-OP-M Strength Start: 03/11/22 13:49 Freq: Status: Active Protocol: Document 09/03/22 11:20 DCW (Rec: 09/03/22 11:43 DCW [id number]) Knee Strength Knee Manual Muscle Testing Right Comments Pt able to hold position against full force with no pain, but unable to move through full flexion PT-OP-Q Treatments Start: 03/11/22 13:49 Freq: Status: Active Protocol: Document 11/12/22 09:51 DCW (Rec: 11/12/22 10:31 DCW [id number]) Cardio Equipment Recumbent Bicycle Duration (Minutes) 7 Resistance 4 Seat Position 5->4 Gym Equipment Shuttle Recovery unilateral Details 113? R knee flexion 11/05/22 Resistance 50# (1 new band) Reps/Time 5 SH x15 Bilateral Squats Details 112? R knee flexion 11/05/22 Resistance 100# (2 new band) Shuttle Recovery Platform Stable Reps/Time 5 SH x15 Shuttle Balance Red Details Staggered weight shift, lateral weight shift Therapeutic Exercises Standing Exercises Flexion stretch Standing Exercise Name R knee flexion stretch/lunge Side right Equipment Used 16 box Reps/Minutes 2 min Comments pre recumbent bike Manual Therapy Treatment Soft Tissue Mobilization quad Body Location R superior patella more medial quad supine, calf & HS prone Mobilization Type Cross-Friction,Myofascial Release,Strumming,Sustained Pressure Intensity/Depth Moderate Comments manual Joint Mobilizations Patella Direction Inferior, superior Grade III Body Position Supine Reps/Duration x3 each Tibiofemoral Joint R knee Direction PA Grade III Body Position Prone Comments use of strap PT-OP-T Assessment and Plan Start: 03/11/22 13:49 Freq: Status: Active Protocol: Document 11/12/22 09:51 DCW (Rec: 11/12/22 10:31 DCW [id number]) Physical Therapy Assessment Goals Two Impairment Pt severely limited R knee flexion limits ambulation ability Electronics Tech Goal (LTG) Pt to improve right knee flexion AROM by at least 40? from 55? to 95? in order to normalize gait pattern and reduce risk for hip and back pain dur to gait disturbance. 05/20/22: No signiifcant AROM 55 deg LTG Duration 12/02/22 Progressing One Impairment Pt does not have an appropriate home exercise program Short Term Goal (STG) Pt to be independent and compliant with an appropriate HEP STG Duration Met Assessment Summary Assessment Pt continues to make slow but fairly steady progress with both passive and active right knee ROM, getting back to usual activities, still requires sudden breaks from activity due to knee pain and stiffness. Physical Therapy Plan Frequency and Duration Frequency of Treatment 1-2x/week Plan of Care Start Date 09/03/22 Plan of Care End Date 12/02/22 Therapeutic Interventions Therapeutic Interventions Aquatic Therapy,Gait Training, Home Exercise Program,Joint Mobilizations,Manual Therapy, Patient/Caregiver Education, Self-Care/Home Management,Soft Tissue Mobilization,Taping, Therapeutic Activities, Therapeutic Exercises Modalities Cold Pack/Ice Massage,Electric Stimulation,Hot Packs, Ultrasound Next Visit Focus/Plan Next Note Type Treatment Note Next Visit Plan Recheck R knee AROM pre/ post tx. Continue functional ROM and activities. POC: Continue proper gait phase patterning and self between txs. POC: PROM, stretching, gait training
--- NOTE | 2022-11-16 10:45 | PT.OTN ---
Current Diagnoses Stiffness of right knee, not elsewhere classified (11/16/22) Unspecified injury of right lower leg, initial encounter (11/16/22) Unspecified injury of right lower leg, subsequent encounter (11/16/22) Physical Therapy Treatment Note PT-OP-A Visit Information Start: 03/11/22 13:49 Freq: Status: Active Protocol: Document 11/16/22 10:01 SP (Rec: 11/16/22 10:47 SP [id number]) Out-Patient Physical Therapy Visit Information Visit Information Visit Type Treatment Note Visit Start Time 10:01 Visit Stop Time 10:45 Total Visit Minutes 44 Visit Number 39 Number of ELEMENTARY READING TUTOR Visits 1 Evaluation Information Evaluation Date 03/11/22 Precautions Precautions IMPRESSION: 1. Subtle oblique tear involving posterior horn of medial meniscus extending to inferior articulating surface. Lateral meniscus is intact. 2. Low-grade MCL sprain. Anterior and posterior cruciate ligaments are intact. 3. Moderate grade sprain/partial-thickness tear involving lateral patellofemoral ligament near patella insertion. Quadriceps tendon and patellar tendon are intact . 4. [id number] tricompartmental osteoarthritis and chondromalacia most notably in medial femoral tibial compartment. Small joint effusion. 5. Nonspecific mild subcutaneous soft tissue edema and small amount of fluid along anterior aspect of patella and patella tendon as above. Per Horacio Rojas M.D. on 04/26/2022 PT-OP-B Current Condition Start: 03/11/22 13:49 Freq: Status: Active Protocol: Document 03/11/22 09:45 DCW (Rec: 03/11/22 14:06 DCW [id number]) Current Condition History of Current Condition Onset Date 11/28/21 Current Complaints Right knee swelling, stiffness History of Current Condition Pt is a 61 year old female presenting to skilled therapy with a three month history of knee swelling and stiffness. Pt reports she tripped and fell on , and as she was holding things at the time, she was unable to catch herself, and fell onto her right knee with her full body weight. Pt reports that she had pretty significant pain for a few weeks, but it is now feeling a lot better. Pt reports that despite it feeling better, it is still swollen and so tight that she struggles to bend it. Pt went to the walk-in clinic one month ago, received x-rays, which were negative, and got referrals to PT and ortho. Admits she has not gone to ortho because they said they were surgeons, and I didn't think it was bad enough that I needed surgery, so I just didn't think I needed to go. Pt presents with a significant R limp due to walking with her knee in full extension at all times. Prior Treatments and Tests R knee x-ray: IMPRESSION: Small joint effusion. 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 Per: Bryce Julien M.D. on 02/09/2022 PT-OP-C Subjective Start: 03/11/22 13:49 Freq: Status: Active Protocol: Document 11/16/22 10:01 SP (Rec: 11/16/22 10:47 SP [id number]) OP-PT Subjective Patient Comments Patient Comments Pt reported slipped LLE footing stepping up on levels landscaping rock to weed/ plants, challenge limited R knee flexion to step up onto approx 12 height rocks. PT-OP-F Manual Assessment Start: 03/11/22 13:49 Freq: Status: Active Protocol: Document 09/03/22 11:20 DCW (Rec: 09/03/22 11:43 DCW [id number]) Manual Assessments Soft Tissue Assessment Soft Tissue Mobility Assessment Edema has largely improved, slight increase in circumfrential measurements vs left leg Joint Mobility Assessment Joint Mobility Assessment Moderately limited mobility of patella PT-OP-G Mobility & Gait Start: 03/11/22 17:35 Freq: Status: Active Protocol: Document 09/03/22 11:20 DCW (Rec: 09/03/22 11:43 DCW [id number]) OP Gait Assessment Gait Gait Assistance Required: Independent Assistive Devices Assistive Device None Gait Deviations General Gait Pattern Antalgic Factors Limiting Gait Function Factors Limiting Gait Function Limited Range of Motion Comments Gait Comments Pt improving with knee flexion during gait, admits she does need to constantly think about it, or she returns to ambulating with right knee in full extension PT-OP-J Posture/Palpation/Skin Start: 03/11/22 13:49 Freq: Status: Active Protocol: Document 09/03/22 11:20 DCW (Rec: 09/03/22 11:43 DCW [id number]) Skin Assessment Circumference Measurement 10 cm superior to patella Location R leg Measurement (Centimeters) 63.2 Knee joint line Location R joint line Measurement (Centimeters) 51.2 Mid Calf Location R mid calf (9cm inferior patella) Measurement (Centimeters) 49.4 PT-OP-K Range of Motion Start: 03/11/22 13:49 Freq: Status: Active Protocol: Document 09/03/22 11:20 DCW (Rec: 09/03/22 11:43 DCW [id number]) Knee Goniometric Range of Motion Knee Right Knee ROM WFL No Patient Position Sitting Flexion Active (degrees) 88 Flexion Passive (degrees) 96 Extension Active (degrees) 0 Comments PROM in supine: 104 PT-OP-L Special Tests Start: 03/11/22 13:49 Freq: Status: Active Protocol: Document 09/03/22 11:20 DCW (Rec: 09/03/22 11:43 DCW [id number]) Special Tests Knee Special Tests Varus- 0 Degrees Test Results Negative Valgus- 0 Degrees Test Results Negative Posterior Draw Test Results Negative Patella Tap Test Results Negative Elle Test Test Results Negative Gerri's Test Results Negative Anterior Draw Test Results Negative PT-OP-M Strength Start: 03/11/22 13:49 Freq: Status: Active Protocol: Document 09/03/22 11:20 DCW (Rec: 09/03/22 11:43 DCW [id number]) Knee Strength Knee Manual Muscle Testing Right Comments Pt able to hold position against full force with no pain, but unable to move through full flexion PT-OP-Q Treatments Start: 03/11/22 13:49 Freq: Status: Active Protocol: Document 11/16/22 10:01 SP (Rec: 11/16/22 10:47 SP [id number]) Gym Equipment Shuttle Recovery Bilateral Squats Details 112? R knee flexion 11/16/22 Resistance 100# (2 new band) Reps/Time 5 SH x15 Shuttle Balance Red Details Staggered F/b, lateral wt shifting Comments cued mini squat, tall JORGE over feet allow knee soft knee flex. Therapeutic Exercises Standing Exercises Step-ups Standing Exercise Name fwd: Side bilateral Equipment Used BOSU, 8 step -light PRN rail support Reps/Minutes 2x10 Comments cued slow pacing descend to floor-allow ankle DF, R knee flexion Gait Training Gait Activity stairs Description ascend/descend-receiprocal stepping Surface 1 HR support Distance/Duration MAPT bldg Comments receiprocal stepping 1 HR, cud slower pacing allow knee flexion/ DF descend, improved slow eccentric flexion/DF with reps post manual and Manual Therapy Treatment Soft Tissue Mobilization quad Body Location R superior patella more medial quad supine, calf & HS prone Mobilization Type Instrument Assisted,Myofascial Release,Rolling Intensity/Depth Moderate Comments manual quad, distal HS/ prox gastroc Joint Mobilizations ankle Joint R talocrual Direction AP Grade II Body Position Supine Patella Direction Inferior, superior Grade III Body Position Supine Reps/Duration x3 each Tibiofemoral Joint R knee Direction AP Grade II Body Position Hooklying Neuro Re-Education Treatment Balance Activities shan stepping Details 6 hurdles 5 Surface 1x 10 (side 4 step) Equipment open areas Comments stable, L foot caught trail Le , circumduct and hip hike R x2 reps better when slows pacing PT-OP-T Assessment and Plan Start: 03/11/22 13:49 Freq: Status: Active Protocol: Document 11/16/22 10:01 SP (Rec: 11/16/22 10:47 SP [id number]) Physical Therapy Assessment Goals Two Impairment Pt severely limited R knee flexion limits ambulation ability Prepress Technician Goal (LTG) Pt to improve right knee flexion AROM by at least 40? from 55? to 95? in order to normalize gait pattern and reduce risk for hip and back pain dur to gait disturbance. 05/20/22: No signiifcant AROM 55 deg 11/16/22: GOAL MET LTG Duration 12/02/22 GOAL MET 11/16/22 One Impairment Pt does not have an appropriate home exercise program Short Term Goal (STG) Pt to be independent and compliant with an appropriate HEP STG Duration Met Assessment Summary Assessment Pt improve soft knee and slower pacing with cues to allow eccentric knee flexion. Improved foot clearance with reps shan/ side 4 step overs. Limited R ankle into DF during mobility improved post manual posterior talocrual glide improves foot clearance and wt shift shuttle balance. She states does need brakes for stiffness R knee and ankle . Physical Therapy Plan Frequency and Duration Frequency of Treatment 1-2x/week Plan of Care Start Date 09/03/22 Plan of Care End Date 12/02/22 Therapeutic Interventions Therapeutic Interventions Aquatic Therapy,Gait Training, Home Exercise Program,Joint Mobilizations,Manual Therapy, Patient/Caregiver Education, Self-Care/Home Management,Soft Tissue Mobilization,Taping, Therapeutic Activities, Therapeutic Exercises Modalities Cold Pack/Ice Massage,Electric Stimulation,Hot Packs, Ultrasound Other Referrals/Consults Referrals/Consults Recommended Would strongly recommend advanced imaging prior to return to therapy Next Visit Focus/Plan Next Note Type Treatment Note Next Visit Plan Continue functional ROM and activities. POC: Continue proper gait phase patterning and self between txs. POC: PROM, stretching, gait training
--- NOTE | 2022-11-19 10:29 | PT.OTN ---
Current Diagnoses Stiffness of right knee, not elsewhere classified (11/19/22) Unspecified injury of right lower leg, initial encounter (11/19/22) Unspecified injury of right lower leg, subsequent encounter (11/19/22) Physical Therapy Treatment Note PT-OP-A Visit Information Start: 03/11/22 13:49 Freq: Status: Active Protocol: Document 11/19/22 09:47 DCW (Rec: 11/19/22 10:29 DCW [id number]) Out-Patient Physical Therapy Visit Information Visit Information Visit Type Treatment Note Visit Note New POC next PT visit Visit Start Time 09:47 Visit Stop Time 10:30 Total Visit Minutes 43 Visit Number 40 Number of LAMINATOR PREFORMS Visits 0 Evaluation Information Evaluation Date 03/11/22 Precautions Precautions IMPRESSION: 1. Subtle oblique tear involving posterior horn of medial meniscus extending to inferior articulating surface. Lateral meniscus is intact. 2. Low-grade MCL sprain. Anterior and posterior cruciate ligaments are intact. 3. Moderate grade sprain/partial-thickness tear involving lateral patellofemoral ligament near patella insertion. Quadriceps tendon and patellar tendon are intact . 4. Ewoa-ut-oinziagm tricompartmental osteoarthritis and chondromalacia most notably in medial femoral tibial compartment. Small joint effusion. 5. Nonspecific mild subcutaneous soft tissue edema and small amount of fluid along anterior aspect of patella and patella tendon as above. Per Horacio Rojas M.D. on 04/26/2022 PT-OP-B Current Condition Start: 03/11/22 13:49 Freq: Status: Active Protocol: Document 03/11/22 09:45 DCW (Rec: 03/11/22 14:06 DCW [id number]) Current Condition History of Current Condition Onset Date 11/28/21 Current Complaints Right knee swelling, stiffness History of Current Condition Pt is a 61 year old female presenting to skilled therapy with a three month history of knee swelling and stiffness. Pt reports she tripped and fell on , and as she was holding things at the time, she was unable to catch herself, and fell onto her right knee with her full body weight. Pt reports that she had pretty significant pain for a few weeks, but it is now feeling a lot better. Pt reports that despite it feeling better, it is still swollen and so tight that she struggles to bend it. Pt went to the walk-in clinic one month ago, received x-rays, which were negative, and got referrals to PT and ortho. Admits she has not gone to ortho because they said they were surgeons, and I didn't think it was bad enough that I needed surgery, so I just didn't think I needed to go. Pt presents with a significant R limp due to walking with her knee in full extension at all times. Prior Treatments and Tests R knee x-ray: IMPRESSION: Small joint effusion. 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 Per: Bryce Julien M.D. on 02/09/2022 PT-OP-C Subjective Start: 03/11/22 13:49 Freq: Status: Active Protocol: Document 11/19/22 09:47 DCW (Rec: 11/19/22 10:29 DCW [id number]) OP-PT Subjective Patient Comments Patient Comments Pt reports her knee was feeling stiff earlier, but it is feeling better presently. PT-OP-F Manual Assessment Start: 03/11/22 13:49 Freq: Status: Active Protocol: Document 09/03/22 11:20 DCW (Rec: 09/03/22 11:43 DCW [id number]) Manual Assessments Soft Tissue Assessment Soft Tissue Mobility Assessment Edema has largely improved, slight increase in circumfrential measurements vs left leg Joint Mobility Assessment Joint Mobility Assessment Moderately limited mobility of patella PT-OP-G Mobility & Gait Start: 03/11/22 17:35 Freq: Status: Active Protocol: Document 09/03/22 11:20 DCW (Rec: 09/03/22 11:43 DCW [id number]) OP Gait Assessment Gait Gait Assistance Required: Independent Assistive Devices Assistive Device None Gait Deviations General Gait Pattern Antalgic Factors Limiting Gait Function Factors Limiting Gait Function Limited Range of Motion Comments Gait Comments Pt improving with knee flexion during gait, admits she does need to constantly think about it, or she returns to ambulating with right knee in full extension PT-OP-J Posture/Palpation/Skin Start: 03/11/22 13:49 Freq: Status: Active Protocol: Document 09/03/22 11:20 DCW (Rec: 09/03/22 11:43 DCW [id number]) Skin Assessment Circumference Measurement 10 cm superior to patella Location R leg Measurement (Centimeters) 63.2 Knee joint line Location R joint line Measurement (Centimeters) 51.2 Mid Calf Location R mid calf (9cm inferior patella) Measurement (Centimeters) 49.4 PT-OP-K Range of Motion Start: 03/11/22 13:49 Freq: Status: Active Protocol: Document 09/03/22 11:20 DCW (Rec: 09/03/22 11:43 DCW [id number]) Knee Goniometric Range of Motion Knee Right Knee ROM WFL No Patient Position Sitting Flexion Active (degrees) 88 Flexion Passive (degrees) 96 Extension Active (degrees) 0 Comments PROM in supine: 104 PT-OP-L Special Tests Start: 03/11/22 13:49 Freq: Status: Active Protocol: Document 09/03/22 11:20 DCW (Rec: 09/03/22 11:43 DCW [id number]) Special Tests Knee Special Tests Varus- 0 Degrees Test Results Negative Valgus- 0 Degrees Test Results Negative Posterior Draw Test Results Negative Patella Tap Test Results Negative Elle Test Test Results Negative Gerri's Test Results Negative Anterior Draw Test Results Negative PT-OP-M Strength Start: 03/11/22 13:49 Freq: Status: Active Protocol: Document 09/03/22 11:20 DCW (Rec: 09/03/22 11:43 DCW [id number]) Knee Strength Knee Manual Muscle Testing Right Comments Pt able to hold position against full force with no pain, but unable to move through full flexion PT-OP-Q Treatments Start: 03/11/22 13:49 Freq: Status: Active Protocol: Document 11/19/22 09:47 DCW (Rec: 11/19/22 10:29 DCW [id number]) Cardio Equipment Recumbent Bicycle Duration (Minutes) 7 Resistance 6 Seat Position 4->3 Gym Equipment Shuttle Recovery unilateral Details 110? R knee flexion 11/05/22 Resistance 50# (1 new band) Reps/Time 5 SH x15 Bilateral Squats Details 113? R knee flexion 11/19/22 Resistance 100# (2 new band) Reps/Time 5 SH x15 Shuttle Balance Red Details Staggered weight shift, lateral weight shift Therapeutic Exercises Standing Exercises Flexion stretch Standing Exercise Name R knee flexion stretch/lunge Side right Equipment Used 16 box Comments pre recumbent bike Manual Therapy Treatment Joint Mobilizations ankle Joint R talocrual Direction AP Grade II Body Position Supine Patella Direction Inferior, superior Grade III Body Position Supine Reps/Duration x3 each Tibiofemoral Joint R knee Direction P<->A Grade III Body Position Hooklying Comments use of strap PT-OP-T Assessment and Plan Start: 03/11/22 13:49 Freq: Status: Active Protocol: Document 11/19/22 09:47 DCW (Rec: 11/19/22 10:29 DCW [id number]) Physical Therapy Assessment Goals Two Impairment Pt severely limited R knee flexion limits ambulation ability Correction Goal (LTG) Pt to improve right knee flexion AROM by at least 40? from 55? to 95? in order to normalize gait pattern and reduce risk for hip and back pain dur to gait disturbance. 05/20/22: No signiifcant AROM 55 deg 11/16/22: GOAL MET LTG Duration 12/02/22 GOAL MET 11/16/22 One Impairment Pt does not have an appropriate home exercise program Short Term Goal (STG) Pt to be independent and compliant with an appropriate HEP STG Duration Met Assessment Summary Assessment Pt a little more stiff and sore today, likely still from her recent fall when out in her yard, but is overall doing much better. Showing continued slow progress toward goals, ambulating with much less gait dysfunction. Physical Therapy Plan Frequency and Duration Frequency of Treatment 1-2x/week Plan of Care Start Date 09/03/22 Plan of Care End Date 12/02/22 Therapeutic Interventions Therapeutic Interventions Aquatic Therapy,Gait Training, Home Exercise Program,Joint Mobilizations,Manual Therapy, Patient/Caregiver Education, Self-Care/Home Management,Soft Tissue Mobilization,Taping, Therapeutic Activities, Therapeutic Exercises Modalities Cold Pack/Ice Massage,Electric Stimulation,Hot Packs, Ultrasound Other Referrals/Consults Referrals/Consults Recommended Would strongly recommend advanced imaging prior to return to therapy Next Visit Focus/Plan Next Note Type Treatment Note Next Visit Plan Continue functional ROM and activities. POC: Continue proper gait phase patterning and self between txs. POC: PROM, stretching, gait training
--- NOTE | 2022-11-23 10:45 | PT.OTN ---
Current Diagnoses Stiffness of right knee, not elsewhere classified (11/23/22) Unspecified injury of right lower leg, initial encounter (11/23/22) Unspecified injury of right lower leg, subsequent encounter (11/23/22) Physical Therapy Treatment Note PT-OP-A Visit Information Start: 03/11/22 13:49 Freq: Status: Active Protocol: Document 11/23/22 10:01 SP (Rec: 11/23/22 11:04 SP [id number]) Out-Patient Physical Therapy Visit Information Visit Information Visit Type Treatment Note Visit Note New POC next PT visit 11/26. Visit Start Time 10:01 Visit Stop Time 10:45 Total Visit Minutes 44 Visit Number 41 Number of DAY PORTER Visits 1 Evaluation Information Evaluation Date 03/11/22 Precautions Precautions IMPRESSION: 1. Subtle oblique tear involving posterior horn of medial meniscus extending to inferior articulating surface. Lateral meniscus is intact. 2. Low-grade MCL sprain. Anterior and posterior cruciate ligaments are intact. 3. Moderate grade sprain/partial-thickness tear involving lateral patellofemoral ligament near patella insertion. Quadriceps tendon and patellar tendon are intact . 4. Mxzx-[id number]-[id number] tricompartmental osteoarthritis and chondromalacia most notably in medial femoral tibial compartment. Small joint effusion. 5. Nonspecific mild subcutaneous soft tissue edema and small amount of fluid along anterior aspect of patella and patella tendon as above. Per Horacio Rojas M.D. on 04/26/2022 PT-OP-B Current Condition Start: 03/11/22 13:49 Freq: Status: Active Protocol: Document 03/11/22 09:45 DCW (Rec: 03/11/22 14:06 DCW [id number]) Current Condition History of Current Condition Onset Date 11/28/21 Current Complaints Right knee swelling, stiffness History of Current Condition Pt is a 61 year old female presenting to skilled therapy with a three month history of knee swelling and stiffness. Pt reports she tripped and fell on , and as she was holding things at the time, she was unable to catch herself, and fell onto her right knee with her full body weight. Pt reports that she had pretty significant pain for a few weeks, but it is now feeling a lot better. Pt reports that despite it feeling better, it is still swollen and so tight that she struggles to bend it. Pt went to the walk-in clinic one month ago, received x-rays, which were negative, and got referrals to PT and ortho. Admits she has not gone to ortho because they said they were surgeons, and I didn't think it was bad enough that I needed surgery, so I just didn't think I needed to go. Pt presents with a significant R limp due to walking with her knee in full extension at all times. Prior Treatments and Tests R knee x-ray: IMPRESSION: Small joint effusion. 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 Per: Bryce Julien M.D. on 02/09/2022 PT-OP-C Subjective Start: 03/11/22 13:49 Freq: Status: Active Protocol: Document 11/23/22 10:01 SP (Rec: 11/23/22 11:04 SP [id number]) OP-PT Subjective Patient Comments Patient Comments Pt reports still feels about same, medial R knee tension/ pulls when walk lately. She states was able to step up on unsteady elevated rock and remembered use core engagement and chest lift able to complete without lose balance. PT-OP-F Manual Assessment Start: 03/11/22 13:49 Freq: Status: Active Protocol: Document 09/03/22 11:20 DCW (Rec: 09/03/22 11:43 DCW [id number]) Manual Assessments Soft Tissue Assessment Soft Tissue Mobility Assessment Edema has largely improved, slight increase in circumfrential measurements vs left leg Joint Mobility Assessment Joint Mobility Assessment Moderately limited mobility of patella PT-OP-G Mobility & Gait Start: 03/11/22 17:35 Freq: Status: Active Protocol: Document 09/03/22 11:20 DCW (Rec: 09/03/22 11:43 DCW [id number]) OP Gait Assessment Gait Gait Assistance Required: Independent Assistive Devices Assistive Device None Gait Deviations General Gait Pattern Antalgic Factors Limiting Gait Function Factors Limiting Gait Function Limited Range of Motion Comments Gait Comments Pt improving with knee flexion during gait, admits she does need to constantly think about it, or she returns to ambulating with right knee in full extension PT-OP-J Posture/Palpation/Skin Start: 03/11/22 13:49 Freq: Status: Active Protocol: Document 09/03/22 11:20 DCW (Rec: 09/03/22 11:43 DCW [id number]) Skin Assessment Circumference Measurement 10 cm superior to patella Location R leg Measurement (Centimeters) 63.2 Knee joint line Location R joint line Measurement (Centimeters) 51.2 Mid Calf Location R mid calf (9cm inferior patella) Measurement (Centimeters) 49.4 PT-OP-K Range of Motion Start: 03/11/22 13:49 Freq: Status: Active Protocol: Document 09/03/22 11:20 DCW (Rec: 09/03/22 11:43 DCW [id number]) Knee Goniometric Range of Motion Knee Right Knee ROM WFL No Patient Position Sitting Flexion Active (degrees) 88 Flexion Passive (degrees) 96 Extension Active (degrees) 0 Comments PROM in supine: 104 PT-OP-L Special Tests Start: 03/11/22 13:49 Freq: Status: Active Protocol: Document 09/03/22 11:20 DCW (Rec: 09/03/22 11:43 DCW [id number]) Special Tests Knee Special Tests Varus- 0 Degrees Test Results Negative Valgus- 0 Degrees Test Results Negative Posterior Draw Test Results Negative Patella Tap Test Results Negative Elle Test Test Results Negative Gerri's Test Results Negative Anterior Draw Test Results Negative PT-OP-M Strength Start: 03/11/22 13:49 Freq: Status: Active Protocol: Document 09/03/22 11:20 DCW (Rec: 09/03/22 11:43 DCW [id number]) Knee Strength Knee Manual Muscle Testing Right Comments Pt able to hold position against full force with no pain, but unable to move through full flexion PT-OP-Q Treatments Start: 03/11/22 13:49 Freq: Status: Active Protocol: Document 11/23/22 10:01 SP (Rec: 11/23/22 11:04 SP [id number]) Cardio Equipment Recumbent Bicycle Duration (Minutes) 8 Resistance 6 Seat Position 5>in 4 Other cued R ankle ROM, 1.6 miles Gym Equipment Shuttle Balance Red Details Staggered weight shift, lateral weight shift Comments cued core/scap engagement w/ trunk upright COG midline BLEs , allow front knee flexion wt shift into back LE. Improve with slower pacing. Sport Cord red Reps/Duration 10 reps each Comments 1. Fwd/bk step ups: 4 step + blue foam 2. step over/back shan fwd & lateral- cued R knee flexion/ DF decreased circumduction Therapeutic Exercises Standing Exercises ankle, knee flexion mob Standing Exercise Name R Equipment Used 16 box Reps/Minutes contact support rail Comments improve knee flexion and DF/ tarsal mobility Step-ups Standing Exercise Name fwd, lateral Side bilateral Equipment Used 1. BOSU light rail supprt 2. 8 step x10 reach no HR fwd 3. down 6 step Reps/Minutes x10 x2 each direction Comments cued tall posturing Neuro Re-Education Treatment Balance Activities squat wt ball pick Details cross body ball management supervisor Equipment yellow, red, green out side Comments cues hip hinge allow knees bend to reach item management supervisor, improved allowance knee flexion. Ed incorporate weeding. PT-OP-T Assessment and Plan Start: 03/11/22 13:49 Freq: Status: Active Protocol: Document 11/23/22 10:01 SP (Rec: 11/23/22 11:04 SP [id number]) Physical Therapy Assessment Goals Two Impairment Pt severely limited R knee flexion limits ambulation ability Fci Goal (LTG) Pt to improve right knee flexion AROM by at least 40? from 55? to 95? in order to normalize gait pattern and reduce risk for hip and back pain dur to gait disturbance. 05/20/22: No signiifcant AROM 55 deg 11/16/22: GOAL MET LTG Duration 12/02/22 GOAL MET 11/16/22 One Impairment Pt does not have an appropriate home exercise program Short Term Goal (STG) Pt to be independent and compliant with an appropriate HEP STG Duration Met Assessment Summary Assessment Pt improved glut drive with wt shift onto uneven surface various heights with less support. She sees carryover improvements during uneven surface stepping during weeding out yard work. Encouraged allow deeper squat with BLE WB to reach items lower to ground, lessen hip hinge bending over. Physical Therapy Plan Frequency and Duration Frequency of Treatment 1-2x/week Plan of Care Start Date 09/03/22 Plan of Care End Date 12/02/22 Therapeutic Interventions Therapeutic Interventions Aquatic Therapy,Gait Training, Home Exercise Program,Joint Mobilizations,Manual Therapy, Patient/Caregiver Education, Self-Care/Home Management,Soft Tissue Mobilization,Taping, Therapeutic Activities, Therapeutic Exercises Modalities Cold Pack/Ice Massage,Electric Stimulation,Hot Packs, Ultrasound Next Visit Focus/Plan Next Note Type Treatment Note Next Visit Plan Continue functional squat management supervisor items, stepping up on uneven surfaces. POC: stretching, gait training
--- NOTE | 2022-11-26 10:16 | PT.OTN ---
Current Diagnoses Stiffness of right knee, not elsewhere classified (11/26/22) Unspecified injury of right lower leg, initial encounter (11/26/22) Unspecified injury of right lower leg, subsequent encounter (11/26/22) Physical Therapy Treatment Note PT-OP-A Visit Information Start: 03/11/22 13:49 Freq: Status: Active Protocol: Document 11/26/22 09:49 DCW (Rec: 11/26/22 10:16 DCW [id number]) Out-Patient Physical Therapy Visit Information Visit Information Visit Type Discharge Summary Visit Start Time 09:49 Visit Stop Time 10:10 Total Visit Minutes 21 Visit Number 42 Number of ABSEILING INSTRUCTOR Visits 0 Evaluation Information Evaluation Date 03/11/22 PT-OP-B Current Condition Start: 03/11/22 13:49 Freq: Status: Active Protocol: Document 03/11/22 09:45 DCW (Rec: 03/11/22 14:06 DCW [id number]) Current Condition History of Current Condition Onset Date 11/28/21 Current Complaints Right knee swelling, stiffness History of Current Condition Pt is a 61 year old female presenting to skilled therapy with a three month history of knee swelling and stiffness. Pt reports she tripped and fell on , and as she was holding things at the time, she was unable to catch herself, and fell onto her right knee with her full body weight. Pt reports that she had pretty significant pain for a few weeks, but it is now feeling a lot better. Pt reports that despite it feeling better, it is still swollen and so tight that she struggles to bend it. Pt went to the walk-in clinic one month ago, received x-rays, which were negative, and got referrals to PT and ortho. Admits she has not gone to ortho because they said they were surgeons, and I didn't think it was bad enough that I needed surgery, so I just didn't think I needed to go. Pt presents with a significant R limp due to walking with her knee in full extension at all times. Prior Treatments and Tests R knee x-ray: IMPRESSION: Small joint effusion. 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 Per: Bryce Julien M.D. on 02/09/2022 PT-OP-C Subjective Start: 03/11/22 13:49 Freq: Status: Active Protocol: Document 11/26/22 09:49 DCW (Rec: 11/26/22 10:16 DCW [id number]) OP-PT Subjective Patient Comments Patient Comments I feel like I'm walking better. I think I get stiff and want to sit down after being up and moving around for a few hours. PT-OP-F Manual Assessment Start: 03/11/22 13:49 Freq: Status: Active Protocol: Document 11/26/22 09:49 DCW (Rec: 11/26/22 10:00 DCW [id number]) Manual Assessments Soft Tissue Assessment Soft Tissue Mobility Assessment Circumfrential measurements continue to be larger right vs left Joint Mobility Assessment Joint Mobility Assessment Mildly limited mobility of patella PT-OP-G Mobility & Gait Start: 03/11/22 17:35 Freq: Status: Active Protocol: Document 11/26/22 09:49 DCW (Rec: 11/26/22 10:00 DCW [id number]) OP Gait Assessment Gait Gait Assistance Required: Independent Assistive Devices Assistive Device None Gait Deviations General Gait Pattern Within Normal Limits Comments Gait Comments Pt continues to experience knee stiffness, but is currently ambulating with appropriate knee flexion and swing phase 90% of the time PT-OP-J Posture/Palpation/Skin Start: 03/11/22 13:49 Freq: Status: Active Protocol: Document 11/26/22 09:49 DCW (Rec: 11/26/22 10:00 DCW [id number]) Skin Assessment Circumference Measurement 10 cm superior to patella Location R leg Measurement (Centimeters) 63.3 Comments 58.8 Knee joint line Location R joint line Measurement (Centimeters) 51.0 Comments L=48.2 Mid Calf Location R mid calf (9cm inferior patella) Measurement (Centimeters) 48.2 Comments L=46.9 PT-OP-K Range of Motion Start: 03/11/22 13:49 Freq: Status: Active Protocol: Document 11/26/22 09:49 DCW (Rec: 11/26/22 10:00 DCW [id number]) Knee Goniometric Range of Motion Knee Right Knee ROM WFL No Patient Position Sitting Flexion Active (degrees) 101 Flexion Passive (degrees) 110 Extension Active (degrees) 0 Comments PROM in supine: 110 AROM in supine: 101 PT-OP-L Special Tests Start: 03/11/22 13:49 Freq: Status: Active Protocol: Document 09/03/22 11:20 DCW (Rec: 09/03/22 11:43 DCW [id number]) Special Tests Knee Special Tests Varus- 0 Degrees Test Results Negative Valgus- 0 Degrees Test Results Negative Posterior Draw Test Results Negative Patella Tap Test Results Negative Elle Test Test Results Negative Gerri's Test Results Negative Anterior Draw Test Results Negative PT-OP-M Strength Start: 03/11/22 13:49 Freq: Status: Active Protocol: Document 11/26/22 09:49 DCW (Rec: 11/26/22 10:00 DCW [id number]) Knee Strength Knee Manual Muscle Testing Right Comments Pt able to hold position against full force with no pain, but unable to move through full flexion PT-OP-Q Treatments Start: 03/11/22 13:49 Freq: Status: Active Protocol: Document 11/26/22 09:49 DCW (Rec: 11/26/22 10:16 DCW [id number]) Manual Therapy Treatment Other Other Manual Treatments Testing: ROM, MMT, Circumfrential measurements PT-OP-T Assessment and Plan Start: 03/11/22 13:49 Freq: Status: Active Protocol: Document 11/26/22 09:49 DCW (Rec: 11/26/22 10:16 DCW [id number]) Physical Therapy Assessment Goals Two Impairment Pt severely limited R knee flexion limits ambulation ability Senior Living Goal (LTG) Pt to improve right knee flexion AROM by at least 40? from 55? to 95? in order to normalize gait pattern and reduce risk for hip and back pain dur to gait disturbance. 05/20/22: No signiifcant AROM 55 deg 11/16/22: GOAL MET LTG Duration 12/02/22 GOAL MET 11/16/22 One Impairment Pt does not have an appropriate home exercise program Short Term Goal (STG) Pt to be independent and compliant with an appropriate HEP STG Duration Met Assessment Summary Assessment Although pt is still showing signs of joint effusion/edema and stiffness, still doing significantly better overall. Pt has met initial goals. After discussion, patient and therapist are in agreement that pt is doing well enough to discharge to independent HEP, with the assumption that she will continue to work hard on ROM and will likely continue to improve as inflammation goes down as time passes following her initial injury. Discharge from skilled PT at this time. Physical Therapy Plan Frequency and Duration Frequency of Treatment 1-2x/week Plan of Care Start Date 09/03/22 Plan of Care End Date 12/02/22 Therapeutic Interventions Therapeutic Interventions Aquatic Therapy,Gait Training, Home Exercise Program,Joint Mobilizations,Manual Therapy, Patient/Caregiver Education, Self-Care/Home Management,Soft Tissue Mobilization,Taping, Therapeutic Activities, Therapeutic Exercises Modalities Cold Pack/Ice Massage,Electric Stimulation,Hot Packs, Ultrasound Discharge Physical Therapy Discharge Reasons Goals Met Next Visit Focus/Plan Next Note Type Discharge Summary
== END 2022-12-07 12:20 | disposition home or self-care (01) ==
LOC: PHYS 09:45
PROVIDERS: Referring Provider Nurse Practitioner Critical Care Medicine; Visit Provider Nurse Practitioner Critical Care Medicine
DX: S89.91XD Unspecified injury of right lower leg, subsequent encounter (principal); M25.661 Stiffness of right knee, not elsewhere classified
CPT/HCPCS: 97110; 97112; 97116; 97140; 97161